=== PATIENT | female | born 1980 | race Caucasian/White ===

== ENCOUNTER 2020-01-18 20:15 | Emergency (ER) | payer OTHER, SELFPAY ==
[2020-01-18] VITALS (17 sets, daily range): BP systolic 120–133; BP diastolic 81–96; PULSE 78–117; RESP 12–26; TEMP 36.4; O2SAT 93–99
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
[2020-01-18 21:12] LABS: Basophils Percent Auto 1.2 % (0.2-1.2); Eosinophils Absolute Auto 0.1 K/mm3 (0-0.3); Eosinophils Percent Auto 1.9 % (0-4.4); Hematocrit 29.9 % (37.0-47.0); Hemoglobin 8.6 g/dL (12.0-15.0); Immature Granulocyte Absolute 0.01 K/mm3 (0.00-0.031); Immature Granulocyte Percent A 0.4 % (0-0.5); Lymphocytes Absolute Auto 0.56 K/mm3 (0.9-3.2); Lymphocytes Percent Auto 21.6 % (18.3-44.2); Mean Corpuscular HGB Conc 28.8 g/dl (32-36); Mean Corpuscular Hemoglobin 21.7 pg (26-34); Mean Corpuscular Volume 75.3 fl (80-100); Mean Platelet Volume 7.8 fl (7.4-10.4); Monocytes Absolute Auto 0.3 K/mm3 (0.1-0.6); Monocytes Percent Auto 10.4 % (2.6-8.5); Neutrophils Absolute Auto 1.7 K/mm3 (1.3-6.7); Neutrophils Percent Auto 64.5 % (45.5-73.1); Platelet Count Result 82 k/mm3 (150-375); Red Blood Count 3.97 M/mm3 (4.2-5.4); Red Cell Distribution Width 24.4 % (11.5-14.5); White Blood Count 2.6 K/mm3 (4.5-10.0)
[2020-01-18 21:21] LABS: Hypochromasia 2+ (NORMAL); Platelet Estimate Decreased (Adequate)
[2020-01-18 21:22] LABS: Ovalocytes 1+ (NORMAL); Target Cells 1+ (NORMAL)
[2020-01-18 21:26] LABS: Prothrombin Time 13.3 Seconds (11.1-14.7)
[2020-01-18] MEDS: SODIUM CHLORIDE 0.9% IV 1,000 ML 999 ML IV CONT (21:30)
[2020-01-18 21:32] LABS: Alanine Aminotransferase 141 U/L (4-35); Albumin Level 3.9 g/dL (3.5-5.1); Alkaline Phosphatase 223 U/L (38-126); Bilirubin,Total 1.3 mg/dL (0.2-1.3); Blood Urea Nitrogen 11 mg/dL (7-17); Calcium 7.9 mg/dL (8.4-10.2); Carbon Dioxide 24 mmol/L (22-30); Chloride 105 mmol/L (98-107); Estimated Glomerular Filt Rate > 60; Glucose 80 mg/dL (65-105); Potassium 3.8 mmol/L (3.4-5.0); Sodium 142 mmol/L (137-145)
[2020-01-18 21:36] LABS: Aspartate Amino Transferase 756 U/L (14-36)
--- NOTE | 2020-01-18 21:37 | PC.NURSE ---
Patient being taken to Ct.
[2020-01-18 21:38] LABS: Ethanol 375 mg/dL (<10)
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
[2020-01-18 23:29] LABS: Add Urine Microscopic? YES; Appearance Urine Clear (Clear); Bilirubin Urine Negative (Negative); Blood Urine Negative (Negative); Color Urine Yellow (Yellow); Glucose Urine UA Negative (Negative); Ketones Urine 1+ mg/dL (Negative); Leukocyte Esterase Ur Negative LEU/UL (Negative); Mucus Urine Rare /lpf; Nitrate Urine Positive (Negative); Protein Urine Negative (Negative); RBC Urine 0-2 /hpf (0-2); Squamous Epithelial Cell Urine Occasional /hpf (Few); WBC Urine 0-3 /hpf
[2020-01-19] VITALS (24 sets, daily range): BP systolic 113–123; BP diastolic 70–82; PULSE 77–97; RESP 12–17; TEMP 36.6; O2SAT 94–100
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
[2020-01-19] MEDS: THIAMINE HCL 200 MG/2 ML VIAL 100 MG IV PUSH (01:10)
[2020-01-19] MEDS: ACETAMINOPHEN 325 MG TABLET 650 MG PO (05:31)
[2020-01-19] MEDS: LORAZEPAM INJ 2 MG/ML VIAL 1 MG IV PUSH (05:50)
--- NOTE | 2020-01-19 06:35 | PC.NURSE ---
This nurse called for a breakfast tray for patient.
--- NOTE | 2020-01-19 08:16 | PC.NURSE ---
Contacted care coordination,they will look into it and return call
--- NOTE | 2020-01-19 08:39 | PC.NURSE ---
0830-JODY WITH CARE COORDINATION IN WITH PT.
--- NOTE | 2020-01-19 09:10 | PC.NURSE ---
[id number] Alethea from [employer] here to help with treatment and [facility] and transportation
[2020-01-19] MEDS: CHLORDIAZEPOXIDE 25 MG CAPSULE PO (09:18)
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
== END 2020-01-19 09:10 | disposition left against medical advice (07) ==
PROVIDERS: Emergency Medicine; Emergency Provider Emergency Medicine
DX: S00.03XA Contusion of scalp, initial encounter (principal); D61.818 Other pancytopenia; R94.5 Abnormal results of liver function studies; F10.129 Alcohol abuse with intoxication, unspecified; Y90.8 Blood alcohol level of 240 mg/100 ml or more; K76.0 Fatty (change of) liver, not elsewhere classified; Z85.6 Personal history of leukemia; Y00.XXXA Assault by blunt object, initial encounter
CPT/HCPCS: 36415; 70450; 70486; 71046; 72125; 74177; 80053; 80307; 81001; 81025; 85025; 85610; 85730; 96361; 96374; 96375; 99284; A9270; J2060; J3411; J7030; Q9967

== ENCOUNTER 2020-02-16 18:05 | Emergency (ER) | payer OTHER, SELFPAY ==
[2020-02-16] VITALS (7 sets, daily range): BP systolic 106–128; BP diastolic 74–103; PULSE 78–103; RESP 15–20; TEMP 36.3; O2SAT 98–100
--- NOTE | ~2020-02-16 | CT_ITS ---
EXAMINATION: CT abdomen pelvis w con DATE: 02/16/2020 21:28 INDICATION: Elevated liver function tests TECHNIQUE: Computed tomography (CT) of the abdomen and pelvis was performed with 100 cc Omnipaque 350 intravenous contrast. Automated exposure control and iterative reconstruction technique were employe d. Exam dose: 400.16 mGy-cm total exam DLP. COMPARISON: 01/18/2020 CT abdomen pelvis FINDINGS: Bilateral breast implants are noted. Normal heart size. No pericardial or pleural effusion. The lung bases are clear of infiltrate or cons olidation. There is very prominent diffuse hepatic steatosis. No hepatic space-occupying mass lesion. No bile du ct or pancreatic duct dilatation. No pancreatic mass lesion or calcification. Splenic size is within normal limits. Status post gastric bypass. Normal morphology of the adrenal glands. No renal mass lesion or hydroureteronephrosis. The urinary b ladder is unremarkable. Status post hysterectomy. No bowel obstruction. No intraperitoneal free air. Normal caliber of the abdominal aorta. No intraperitoneal or retroperitoneal or pelvic mass lesion or adenopathy or ascites. IMPRESSION: Prominent hepatic steatosis Status post cholecystectomy Gastric bypass surgery Bilateral breast implants Status post hysterectomy Reviewed, dictated and finalized at Location [facility]. Reviewed, dictated and finalized at location A.
--- NOTE | 2020-02-16 19:44 | ECG_ITS ---
Measurements Intervals [place] Rate: 83 P: 66 NH: 178 QRS: 49 QRSD: 110 T: 44 QT: 427 QTc: 502 Interpretive Statements SINUS RHYTHM BASELINE ARTIFACT- I, II, III, AVR, AVL,A VF, V1 NORMAL ECG Electronically Signed On 02-17-2020 8:08:38 CDT by Laz Kenyon D.O.
--- NOTE | 2020-02-16 19:49 | ED.GENADULT ---
HPI - General Adult General Chief complaint: Unspecified Stated complaint: dizzy, weak, bodyaches Time Seen by Provider: 02/16/20 19:31 Source: patient Mode of arrival: ambulatory Limitations: no limitations History of Present Illness HPI narrative: This patient is 39 year old female who presents with complaint of 4 weeks of fatigue. 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 She is having difficulty and feeling tired more with all her heavy lifting. She also has nausea and dry heaves so she does not want to eat. She has some dizziness and she reports she feels unsteady when she walks. She denies fever, chills, cough or chest pain. She denies abdominal pain. She has noticed that her urine is dark. She admits to drinking 1 pint per daily of alcohol. She develops tremors if she does not drink. She last drank today. Onset (ago): week(s) (4) Related Data Home Medications Medication Instructions Recorded Confirmed dextroamphetamine-amphetamine 02/16/20 Allergies Allergy/AdvReac Type Severity Reaction Status Date / Time Penicillins Allergy Intermediate Swelling Verified 02/16/20 18:20 ceftriaxone Allergy Mild Rash Verified 02/16/20 18:20 paper tape Allergy Mild Rash Uncoded 02/16/20 18:20 Review of Systems Review of Systems: All systems reviewed & are unremarkable except as noted in HPI and below Constitutional: Constitutional: Denies chills and Denies fever(s) Eyes: Eyes: Reports no additional eye complaints ENT: Reports dizziness Cardiovascular: Cardiovascular: Denies chest pain Respiratory: Respiratory: Denies cough and Denies wheezing Gastrointestinal: Gastrointestinal: Denies abdominal pain, Denies constipation, Denies diarrhea, Reports nausea and Denies vomiting Genitourinary: Genitourinary: Reports no additional female genitourinary complaints [facility] Past Medical History Medical History (Updated 02/16/20 @ 23:38 by Lorraine Stafford MD) Leukemia Surgical History Surgical History (Updated 02/16/20 @ 19:49 by Lorraine Stafford MD) H/O gastric bypass History of hysterectomy Social History Social History (Updated 02/16/20 @ 19:50 by Lorraine Stafford MD) Smoking status: Never smoker Alcohol intake: current Alcohol use details: 1 pint daily Substance use: never Gender identity (if verbalized by the patient): Female Exam Const: General: no acute distress and alert Orientation/consciousness: patient oriented x3 HENMT: Head: normocephalic and atraumatic Face and sinus: face symmetric Mouth: Yes Normal oral and palatal mucosa present, Yes lip normal and Yes oropharynx normal Throat: posterior oropharynx normal, tonsils normal and uvula midline Eyes: Conjunctivae: conjunctivae normal Pupils: Equal, round and reactive pupils present EOM: EOMs intact bilaterally Chest: Chest palpation & inspection: normal inspection of the chest Resp: Effort & Inspection: normal respiratory effort and no retractions Auscultation: clear to auscultation bilaterally Cardio: Rate: regular rate Rhythm: regular rhythm Heart sounds: no murmurs GI: GI Palp: Yes Soft to palpation, No Tenderness to palpation present (GI), No Guarding due to palpation present (GI) and No Rigid due to palpation Skin: General skin exam: normal color Rashes: no rashes Other: bruising to extremities Neuro: General: patient oriented x3, moves all extremities and CN's II-XI intact bilaterally Speech: normal speech Gait exam (Neuro): Normal gait present Extrem: General: edema Psych: Mental Status: mental status grossly normal Course Reevaluation(s) Reevaluation #1: Patient appears comfortable and she does not appear to be withdrawing. I have discussed with her lab abnormalities which includes pancytopenia and alcoholic hepatitis. 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 I Discussed that she will nee
[2020-02-16] MEDS: ONDANSETRON INJ 4 MG/2 ML VIAL IV PUSH (20:10)
[2020-02-16] MEDS: PANTOPRAZOLE SODIUM IV 40 MG VIAL IV PUSH (20:10)
[2020-02-16 20:16] LABS: Basophils Percent Auto 0.7 % (0.2-1.2); Eosinophils Percent Auto 0.3 % (0-4.4); Hematocrit 32.5 % (37.0-47.0); Hemoglobin 10.1 g/dL (12.0-15.0); Immature Granulocyte Absolute 0.02 K/mm3 (0.00-0.031); Immature Granulocyte Percent A 0.7 % (0-0.5); Lymphocytes Absolute Auto 0.88 K/mm3 (0.9-3.2); Lymphocytes Percent Auto 30.7 % (18.3-44.2); Mean Corpuscular HGB Conc 31.1 g/dl (32-36); Mean Corpuscular Hemoglobin 24.2 pg (26-34); Mean Corpuscular Volume 77.8 fl (80-100); Mean Platelet Volume 9.4 fl (7.4-10.4); Monocytes Absolute Auto 0.2 K/mm3 (0.1-0.6); Neutrophils Absolute Auto 1.7 K/mm3 (1.3-6.7); Neutrophils Percent Auto 59.6 % (45.5-73.1); Platelet Count Result 98 k/mm3 (150-375); Red Blood Count 4.18 M/mm3 (4.2-5.4); Red Cell Distribution Width 24.2 % (11.5-14.5); White Blood Count 2.9 K/mm3 (4.5-10.0)
[2020-02-16 20:27] LABS: Ammonia < 9 umol/L (9-30); Partial Thromboplastin Time 30.1 SECONDS (22.3-36.8); Prothrombin Time 12.6 Seconds (11.1-14.7)
[2020-02-16 20:29] LABS: Creatine Kinase 125 U/L (30-135)
[2020-02-16 20:31] LABS: Alanine Aminotransferase 154 U/L (4-35); Albumin Level 3.6 g/dL (3.5-5.1); Alkaline Phosphatase 324 U/L (38-126); Bilirubin,Total 3.4 mg/dL (0.2-1.3); Blood Urea Nitrogen 8 mg/dL (7-17); Calcium 7.6 mg/dL (8.4-10.2); Carbon Dioxide 27 mmol/L (22-30); Chloride 97 mmol/L (98-107); Estimated CRCL calculation 96 ml/min; Estimated Glomerular Filt Rate > 60; Glucose 90 mg/dL (65-105); Magnesium 1.7 mg/dL (1.6-2.3); Potassium 4.1 mmol/L (3.4-5.0); Sodium 138 mmol/L (137-145)
[2020-02-16 20:45] LABS: Aspartate Amino Transferase 927 U/L (14-36)
[2020-02-16 22:36] LABS: Add Urine Microscopic? NO; Appearance Urine Clear (Clear); Bilirubin Urine Negative (Negative); Blood Urine Negative (Negative); Color Urine Yellow (Yellow); Glucose Urine UA Negative (Negative); Ketones Urine Negative (Negative); Leukocyte Esterase Ur Negative LEU/UL (Negative); Nitrate Urine Negative (Negative); Protein Urine Negative (Negative); Specific Grav Ur 1.021 (1.001-1.035); Urobilinogen Urine Negative mg/dL (<2.0)
--- NOTE | 2020-02-16 23:26 | PC.NURSE ---
Assumed care of pt at this time. Report from macario galeas
== END 2020-02-16 23:50 | disposition home or self-care (01) ==
PROVIDERS: Emergency Provider General Practice
DX: D61.818 Other pancytopenia (principal); K70.10 Alcoholic hepatitis without ascites; Z85.6 Personal history of leukemia; D76.3 Other histiocytosis syndromes; Z98.84 Bariatric surgery status; K76.0 Fatty (change of) liver, not elsewhere classified
CPT/HCPCS: 36415; 74177; 80053; 81003; 82140; 82550; 83735; 85025; 85610; 85730; 93005; 96365; 96366; 96375; 99284; C9113; J2405; J3411; J3475; J7121; Q9967

== ENCOUNTER 2020-02-21 16:52 | Inpatient (IN) | payer OTHER, SELFPAY ==
[2020-02-21] VITALS (8 sets, daily range): BP systolic 125–151; BP diastolic 80–109; PULSE 94–122; RESP 16–22; TEMP 36.7–37.2; O2SAT 97–100; BMI 26.4
--- NOTE | ~2020-02-21 | US_ITS ---
EXAMINATION: US right upper quadrant DATE: 02/23/2020 09:33 INDICATION: Abnormal liver function tests. TECHNIQUE: Multiple grayscale and Doppler ultrasound images of the abdomen were obtained. COMPARISON: CT abdomen and pelvis 02/16/2020 FINDINGS: The visualized portions of the head and body of the pancreas are normal. There is diffuse h epatic steatosis. No liver surface nodularity. There is normal flow in main portal vein. The gallblad milagros is absent. The common duct is normal and measures 5 mm. IMPRESSION: 1. Diffuse hepatic steatosis. Reviewed, dictated and finalized at location A.
[2020-02-21 17:10] LABS: Basophils Percent Auto 1.1 % (0.2-1.2); Eosinophils Percent Auto 0.4 % (0-4.4); Hematocrit 29.8 % (37.0-47.0); Hemoglobin 9.1 g/dL (12.0-15.0); Immature Granulocyte Absolute 0.03 K/mm3 (0.00-0.031); Immature Granulocyte Percent A 1.1 % (0-0.5); Lymphocytes Absolute Auto 0.77 K/mm3 (0.9-3.2); Lymphocytes Percent Auto 27.4 % (18.3-44.2); Mean Corpuscular HGB Conc 30.5 g/dl (32-36); Mean Corpuscular Hemoglobin 25.4 pg (26-34); Mean Corpuscular Volume 83.2 fl (80-100); Mean Platelet Volume 9.7 fl (7.4-10.4); Monocytes Absolute Auto 0.2 K/mm3 (0.1-0.6); Monocytes Percent Auto 7.1 % (2.6-8.5); Neutrophils Absolute Auto 1.8 K/mm3 (1.3-6.7); Neutrophils Percent Auto 62.9 % (45.5-73.1); Platelet Count Result 86 k/mm3 (150-375); Red Blood Count 3.58 M/mm3 (4.2-5.4); Red Cell Distribution Width 24.7 % (11.5-14.5); White Blood Count 2.8 K/mm3 (4.5-10.0)
[2020-02-21 17:23] LABS: Alanine Aminotransferase 132 U/L (4-35); Albumin Level 3.3 g/dL (3.5-5.1); Alkaline Phosphatase 339 U/L (38-126); Aspartate Amino Transferase 643 U/L (14-36); Bilirubin,Total 4.1 mg/dL (0.2-1.3); Blood Urea Nitrogen 5 mg/dL (7-17); Calcium 7.9 mg/dL (8.4-10.2); Carbon Dioxide 24 mmol/L (22-30); Chloride 98 mmol/L (98-107); Estimated CRCL calculation 85 ml/min; Estimated Glomerular Filt Rate > 60; Ethanol 129 mg/dL (<10); Glucose 113 mg/dL (65-105); Potassium 3.8 mmol/L (3.4-5.0); Sodium 138 mmol/L (137-145)
--- NOTE | 2020-02-21 19:50 | ECG_ITS ---
Measurements Intervals [place] Rate: 98 P: 59 OR: 169 QRS: 54 QRSD: 102 T: 25 QT: 389 QTc: 498 Interpretive Statements SINUS RHYTHM BASELINE WANDER- AVL, AVF NORMAL ECG Electronically Signed On 02-22-2020 7:22:19 CDT by Laz Kenyon D.O.
--- NOTE | 2020-02-21 19:50 | ED.GENADULT ---
HPI - General Adult General Chief complaint: Unspecified Stated complaint: headache Time Seen by Provider: 02/21/20 19:42 Source: patient Mode of arrival: ambulatory Limitations: no limitations History of Present Illness HPI narrative: This patient is a 39 year old female with history of alcohol abuse, hepatitis, sinus histiocytosis who presents for evaluation of alcohol withdrawal. Patient has been to ER numerous times for evaluation of her excessive drinking. She states she is finally ready to stop drinking so she came to ER. She states her last drink was 10 am today. She drinks a pint of alcohol every day . She was prescribed librium on last visit but she states she continued to drink. She reports nausea and dry heaves. She denies hematemesis, diarrhea or bloody stools. Related Data Home Medications Medication Instructions Recorded Confirmed dextroamphetamine-amphetamine 02/16/20 Allergies Allergy/AdvReac Type Severity Reaction Status Date / Time Penicillins Allergy Intermediate Swelling Verified 02/16/20 18:20 adhesive tape Allergy Mild Rash Verified 02/21/20 19:57 ceftriaxone Allergy Mild Rash Verified 02/16/20 18:20 Review of Systems Review of Systems: All systems reviewed & are unremarkable except as noted in HPI and below Constitutional: Constitutional: Denies chills and Denies fever(s) Cardiovascular: Cardiovascular: Denies chest pain Respiratory: Respiratory: Denies cough and Denies dyspnea Gastrointestinal: Gastrointestinal: Denies abdominal pain, Denies diarrhea and Reports nausea Genitourinary: Genitourinary: Denies hematuria and Denies flank pain Hematologic/Lymphatic: Hematologic/Lymphatic: Reports easy bruising PMFSH Past Medical History Medical History Hepatitis, alcoholic, acute Leukemia Surgical History Surgical History H/O gastric bypass History of hysterectomy Social History Social History Smoking status: Never smoker Alcohol intake: current Substance use: never Gender identity (if verbalized by the patient): Female Exam Const: General: alert Orientation/consciousness: patient oriented x3 HENMT: Head: normocephalic and atraumatic Ears: TM's normal bilaterally Face and sinus: face symmetric Throat: uvula midline Eyes: Pupils: Equal, round and reactive pupils present EOM: EOMs intact bilaterally Resp: Effort & Inspection: normal respiratory effort, no retractions and no use of accessory muscles Auscultation: clear to auscultation bilaterally Cardio: Rate: tachycardic Rhythm: regular rhythm Heart sounds: no murmurs GI: GI Palp: Yes Soft to palpation, No Tenderness to palpation present (GI), No Guarding due to palpation present (GI) and No Rigid due to palpation Skin: General skin exam: jaundice Neuro: General: patient oriented x3 and moves all extremities Cranial nerves: Yes Equal, round and reactive pupils present Speech: normal speech Motor exam (neuro): Tremors during motor activity present and Asterixis during motor activity present Course Consultations Consultation #1: I Discussed case with dR. Alexandra who request patient to be given another 1 L of fluid. He request to start patient on precedex Date: 02/21/20 Time: 21:05 Consultation #2: I have discussed case with dR. Mejia who accepts patient in ED. Date: 02/21/20 Time: 21:06 Consultation #3: Dr. Eileen Chauhan is agreeable to consult Date: 02/21/20 Time: 21:30 Vital Signs Vital signs: Vital Signs Temperature 98.1 F 02/21/20 16:55 Pulse Rate 110 H 02/21/20 16:55 Respiratory Rate 16 02/21/20 16:55 Blood Pressure 125/88 02/21/20 16:55 Pulse Oximetry 100 02/21/20 16:55 Temperature 98.0 F 02/21/20 19:42 Pulse Rate 96 02/21/20 21:22 Respiratory Rate 20 02/21/20 21:22 Blood Pressure 130/89
[2020-02-21 20:28] LABS: Add Urine Microscopic? YES; Appearance Urine Cloudy (Clear); Bacteria Urine Trace /hpf; Bilirubin Urine 2+ (Negative); Glucose Urine UA Negative (Negative); Ketones Urine Trace mg/dL (Negative); Leukocyte Esterase Ur 1+ LEU/UL (Negative); Mucus Urine Heavy /lpf; Nitrate Urine Positive (Negative); Protein Urine 2+ mg/dL (Negative); RBC Urine 0-2 /hpf (0-2); Specific Grav Ur 1.023 (1.001-1.035); Squamous Epithelial Cell Urine Many /hpf (Few); WBC Urine 51-75 /hpf
[2020-02-21] MEDS: ONDANSETRON INJ 4 MG/2 ML VIAL IV PUSH ×2 (20:29→22:51)
[2020-02-21 20:32] LABS: Magnesium 1.3 mg/dL (1.6-2.3)
[2020-02-21 20:34] LABS: Blood Urine Negative (Negative); Color Urine Dark Amber (Yellow)
[2020-02-21 20:52] LABS: Amphetamine Screen Urine Positive (Negative); Barbiturate Screen Urine Negative (Negative); Benzodiazepines Screen Urine Negative (Negative); Cannabinoid Screen Urine Negative (Negative); Cocaine Screen Urine Negative (Negative); Methadone Screen Urine Negative (Negative); Opiate Screen Urine Negative (Negative); Phencyclidine Screen Urine Negative (Negative)
--- NOTE | 2020-02-21 21:28 | PM.IMHP ---
H&P: HPI History of Present Illness Chief complaint: alcohol withdrawal Narrative: This is a 39 year old female with known history of Histiocytosis, alcoholic hepatitis, and chronic alcoholism presented to the ER tonight with alcohol withdrawal symptoms including nausea, dry heaving, anxiety, headache, and shakiness. The patient has had multiple ER visits and julia verbalizes that she desires to quit drinking alcohol. She reports that she normally drinks hard liquor all throughout the day. Her last alcholic drink was around 10 am this morning. She denies any hallucinations, fevers, chill, shortness of breath, chest pain, abdominal pain, dysuria, hematuria, diarrhea, or focal neurological symptoms. She does report a dry cough that she has had recently. She also has chronic bruising and lower extremity swelling. No other complaints. Review of Systems Review of Systems: All systems reviewed & are unremarkable except as noted in HPI and below PMFSH Past Medical History Medical History Hepatitis, alcoholic, acute Leukemia Surgical History Surgical History H/O gastric bypass History of hysterectomy Social History Social History Smoking status: Never smoker Alcohol intake: current Drinks per week: 10 Substance use: never Gender identity (if verbalized by the patient): Female Sexual Orientation (if Verbalized by the Patient): Straight or Heterosexual Spiritual care concerns: No Comments Family medical history is noncontributory. Meds Home Medications and Allergies Home Medications Medication Instructions Recorded Confirmed Type chlordiazepoxide HCl 25 mg PO Q2H PRN #20 cap 02/16/20 02/22/20 Rx dextroamphetamine-amphetamine 30 mg PO TID 02/16/20 02/22/20 History Allergies Allergy/AdvReac Type Severity Reaction Status Date / Time Penicillins Allergy Intermediate Swelling Verified 02/16/20 18:20 adhesive tape Allergy Mild Rash Verified 02/21/20 19:57 ceftriaxone Allergy Mild Rash Verified 02/16/20 18:20 Vital Signs Vital Signs - 24 hr 02/21/20 16:55 02/21/20 19:42 02/21/20 20:31 Temperature 36.7 C 36.7 C Pulse Rate 110 H 102 H 94 Respiratory Rate 16 16 20 Blood Pressure 125/88 151/109 H 132/89 Pulse Oximetry 100 97 100 02/21/20 21:22 Temperature Pulse Rate 96 Respiratory Rate 20 Blood Pressure 130/89 Pulse Oximetry 100 Exam Const: General: cooperative, alert, awake, in distress mild and anxious Nutritional Appearance: well nourished Orientation/consciousness: patient oriented x3 HENMT: Head: normal to inspection General nose exam: Normal external nose present Face and sinus: normal facial exam Mouth: Yes Normal oral and palatal mucosa present and Yes oropharynx normal Eyes: Pupils: Equal, round and reactive pupils present EOM: EOMs intact bilaterally Neck: Neck: supple and no JVD Thyroid: thyroid normal Lymphatic: lymphadenopathy not noted Resp: Effort & Inspection: normal respiratory effort Auscultation: clear to auscultation bilaterally Cardio: Rate: regular rate Rhythm: regular rhythm Heart sounds: no murmurs GI: Inspection: normal to inspection Auscultation: normal bowel sounds Skin: General skin exam: normal color and no rashes or lesions noted Neuro: General: patient oriented x3 Cranial nerves: Yes CN's II-XII intact bilaterally and Yes Equal, round and reactive pupils present Speech: normal speech Motor exam (neuro): 5/5 motor strength present throughout and Other motor observations present (Visible tremors++ ) Sensory Exam: normal sensation Extrem: General: normal to inspection and edema bilateral Psych: Mental Status: mental status grossly normal Affect: normal affect H&P: Results Labs Labs: Short CBC 02/21/20 Range/Units 17:00 WBC 2.8 L (4.5-10.0) K/mm3 Hgb 9.
[2020-02-21] MEDS: LACTATED RINGERS 1,000 ML 999 ML IV CONT (21:31)
--- NOTE | 2020-02-21 22:07 | PC.NURSE ---
Pt's mother here to see patient. Informed her only one visitor is allowed back. She left her name and number for patient to reach her. Rasheeda [phone]
--- NOTE | 2020-02-21 22:25 | ADMGEN ---
This patient, Brittany Dill, was admitted to Intensive Care Unit-8. Patient/family oriented to hospital policies and general routines including ID bracelet, bed and alarms, visiting hours, pain management, procedures, bathroom and other care routines, personal items, smoking policy, room service/diet, and visiting hours. Valuables list has been completed. Information on how to activate the Rapid Response Team has been discussed. Patient/Family are encouraged to report perceived risks to care and to ask questions if they do not understand what they are told or what they should do.
[2020-02-21] MEDS: chlordiazePOXIDE 25 MG CAPSULE 50 MG PO (22:37)
[2020-02-22] VITALS (12 sets, daily range): BP systolic 111–146; BP diastolic 74–93; PULSE 86–119; RESP 16–21; TEMP 36.4–36.8; O2SAT 100
[2020-02-22] MEDS: chlordiazePOXIDE 25 MG CAPSULE 50 MG PO ×3 (04:44→18:22)
[2020-02-22 04:59] LABS: Basophils Percent Auto 0.4 % (0.2-1.2); Eosinophils Percent Auto 0.7 % (0-4.4); Hematocrit 24.1 % (37.0-47.0); Hemoglobin 7.6 g/dL (12.0-15.0); Immature Granulocyte Absolute 0.03 K/mm3 (0.00-0.031); Immature Granulocyte Percent A 1.1 % (0-0.5); Immature Platelet Fraction Pct 4.9 % (0.9-11.2); Lymphocytes Absolute Auto 1.01 K/mm3 (0.9-3.2); Lymphocytes Percent Auto 37.8 % (18.3-44.2); Mean Corpuscular HGB Conc 31.5 g/dl (32-36); Mean Corpuscular Hemoglobin 26.1 pg (26-34); Mean Corpuscular Volume 82.8 fl (80-100); Mean Platelet Volume 9.7 fl (7.4-10.4); Monocytes Absolute Auto 0.2 K/mm3 (0.1-0.6); Monocytes Percent Auto 6.7 % (2.6-8.5); Neutrophils Absolute Auto 1.4 K/mm3 (1.3-6.7); Neutrophils Percent Auto 53.3 % (45.5-73.1); Platelet Count Result 77 k/mm3 (150-375); Red Blood Count 2.91 M/mm3 (4.2-5.4); Red Cell Distribution Width 24.9 % (11.5-14.5); White Blood Count 2.7 K/mm3 (4.5-10.0)
[2020-02-22 05:10] LABS: Alanine Aminotransferase 104 U/L (4-35); Albumin Level 2.8 g/dL (3.5-5.1); Alkaline Phosphatase 258 U/L (38-126); Aspartate Amino Transferase 491 U/L (14-36); Bilirubin,Total 4.7 mg/dL (0.2-1.3); Blood Urea Nitrogen 6 mg/dL (7-17); Calcium 7.4 mg/dL (8.4-10.2); Carbon Dioxide 27 mmol/L (22-30); Chloride 95 mmol/L (98-107); Estimated CRCL calculation 116 ml/min; Estimated Glomerular Filt Rate > 60; Glucose 79 mg/dL (65-105); Potassium 3.5 mmol/L (3.4-5.0); Sodium 133 mmol/L (137-145)
[2020-02-22 07:54] LABS: Basophils Percent Auto 0.4 % (0.2-1.2); Eosinophils Percent Auto 1.2 % (0-4.4); Hematocrit 25.6 % (37.0-47.0); Immature Granulocyte Absolute 0.03 K/mm3 (0.00-0.031); Immature Granulocyte Percent A 1.2 % (0-0.5); Immature Platelet Fraction Pct 6.7 % (0.9-11.2); Lymphocytes Absolute Auto 1.04 K/mm3 (0.9-3.2); Mean Corpuscular HGB Conc 31.3 g/dl (32-36); Mean Corpuscular Hemoglobin 25.9 pg (26-34); Mean Corpuscular Volume 82.8 fl (80-100); Mean Platelet Volume 9.6 fl (7.4-10.4); Monocytes Absolute Auto 0.2 K/mm3 (0.1-0.6); Monocytes Percent Auto 5.8 % (2.6-8.5); Neutrophils Absolute Auto 1.3 K/mm3 (1.3-6.7); Neutrophils Percent Auto 51.4 % (45.5-73.1); Platelet Count Result 76 k/mm3 (150-375); Red Blood Count 3.09 M/mm3 (4.2-5.4); White Blood Count 2.6 K/mm3 (4.5-10.0)
[2020-02-22] MEDS: ONDANSETRON INJ 4 MG/2 ML VIAL IV PUSH (08:22)
--- NOTE | 2020-02-22 08:47 | WPDCNINT ---
Assessment and Plan Assessment and plan (1) Alcohol withdrawal: Qualifiers: Complication of substance-induced condition: uncomplicated Qualified Code(s): F10.230 - Alcohol dependence with withdrawal, uncomplicated Code(s): F10.239 - Alcohol dependence with withdrawal, unspecified Status: Acute Assessment and Plan: Patient with alcohol dependence/abuse presented with possible alcohol intoxication/withdrawal symptoms. Patient was tachycardic, anxious, tremulous, headaches. -patient started on folic acid and thiamine -continue Librium -patient did not require Precedex -continue CIWA protocol -p.r.n. Ativan -patient wants to quit drinking and is asking for help, will have care coordination evaluate the patient and provide patient with resources (2) Abnormal drug screen: Code(s): R89.2 - Abnormal level of other drugs, medicaments and biological substances in specimens from other organs, systems and tissues Status: Acute Assessment and Plan: Urine tox screen was positive for amphetamines, patient states she takes Adderall at home (3) Pancytopenia: Code(s): D61.818 - Other pancytopenia Status: Acute Assessment and Plan: Patient with pancytopenia, has history of leukemia/lymphoma -patient has been lost to follow-up after oncologist -will have Dr. Kruger follow the patient (4) Acute alcoholic hepatitis: Code(s): K70.10 - Alcoholic hepatitis without ascites Status: Acute Assessment and Plan: Patient with elevated LFTs, recently in the in the ER at [facility] on 02/16/[address] when she had a CT scan of the abdomen and pelvis which showed prominent hepatic steatosis, status post cholecystectomy, gastric bypass surgery, bilateral breast implants, status post hysterectomy -GI has been consulted (5) Leukemia: Code(s): C95.90 - Leukemia, unspecified not having achieved remission Status: Acute Assessment and Plan: History of leukemia/lymphoma, will have Dr. Kruger follow the patient Additional Plan Discussed with patient at length and updated her with her condition and plan of care. She is aware that the oncologist will be following her along with the GI doctor. Code status: Full code Critical care time spent: 41 minutes Due to a high probability of clinically significant, life threatening deterioration, the patient required my highest level of preparedness to intervene emergently and I personally spent this critical care time directly and personally managing the patient. This critical care time included obtaining a history; examining the patient; pulse oximetry; ordering and review of studies; arranging urgent treatment with development of a management plan; evaluation of patient's response to treatment; frequent reassessment; and discussions with other providers. It was exclusive of separately billable procedures and treating other patients and teaching time. Please see Assessment and Plan section and the rest of the note for further information on patient assessment and treatment [employer] Manager Consult Note Consult date: 02/22/20 Time Seen: 07:04 Reason for consult: Alcohol intoxication, alcohol withdrawal, nausea, tremors HPI: Brittany Dill is a 39 year old female with significant past medical history of alcohol hepatitis, leukemia for history of gastric bypass, history of hysterectomy presented to the ED on 02/21/2020 with complains of alcohol intoxication with possible alcohol withdrawal symptoms which included nausea vomiting, anxiety, headaches, tremors. Patient was recently in the ED at [facility] on 02/16/2020 with complains of body aches, dizziness and weakness and was discharged the same day with diagnosis of pancytopenia and hepatic steatosis, alcoholic hepatitis, alcohol withdrawal. In the ED patient verbalized that she deserved to quit drinking alcohol. She normally drinks hard liquor throughout the day, 1 pt of al
[2020-02-22] MEDS: THIAMINE HCL 200 MG/2 ML VIAL 100 MG IV PUSH (09:22)
[2020-02-22] MEDS: PANTOPRAZOLE SODIUM IV 40 MG VIAL IV PUSH (09:22)
[2020-02-22] MEDS: SODIUM CHLORIDE 0.9% IV 1,000 ML 999 ML IV CONT (09:26)
[2020-02-22 10:33] LABS: Iron 138 ug/dL (37-170)
[2020-02-22 10:43] LABS: Percent Iron Saturation 64 % (20-50)
--- NOTE | 2020-02-22 15:49 | WPDGICN ---
Assessment and Plan Assessment and plan (1) Alcohol withdrawal: Qualifiers: Complication of substance-induced condition: uncomplicated Qualified Code(s): F10.230 - Alcohol dependence with withdrawal, uncomplicated Code(s): F10.239 - Alcohol dependence with withdrawal, unspecified Status: Acute Assessment and Plan: monitor in icu thiamine, librium prn, mvi, etc (2) Acute alcoholic hepatitis: Code(s): K70.10 - Alcoholic hepatitis without ascites Status: Acute Assessment and Plan: monitor lft's she would like to quit drinking and willing to look for help (3) Pancytopenia: Code(s): D61.818 - Other pancytopenia Status: Acute Assessment and Plan: ? history of leukemia, public relations senior associate to see (4) Alcoholic fatty liver: Code(s): K70.0 - Alcoholic fatty liver Status: Acute GI Consult Note Consult date/time: 02/22/20 15:49 Reason for consult: alcoholic hepatitis HPI: Brittany Dill is a 39 year old female history of alcohol hepatitis, pancytopenia, gastric bypass came to the ED on 02/21/2020 with nausea, vomiting, anxiety, headaches, tremors and ear ringing. She was just in ED at [facility] about a month ago and had CT scan with hepatic steatosis. This time noted to have alcoholic hepatitis with tb 4, transaminases 600-100, pancytopenia. CT scan showed gastric bypass, hepatic steatosis. She was admitted to ICU for risk of etoh withdrawal, ciwa protocol, did not need precedex. She wants to quit drinking, normally has several shots a day for years, she is under a lot of stress after tough divorce and taking care of her children. Review of Systems Constitutional: Constitutional: Denies headache(s) and Denies weakness Eyes: Eyes: Denies blurry vision ENT: Reports Normal hearing present, Denies headache(s) and Denies neck pain Cardiovascular: Cardiovascular: Denies chest pain and Denies dyspnea Respiratory: Respiratory: Denies dyspnea Gastrointestinal: Gastrointestinal: Reports no additional gastrointestinal complaints Genitourinary: Genitourinary: Denies dysuria Musculoskeletal: Musculoskeletal: Denies neck pain Integumentary/Breasts: Skin/Breast: Denies dry skin Neurologic: Reports Normal hearing present, Denies headache(s) and Denies weakness Psychiatric: Psychiatric: Reports anxiety Endocrine: Endocrine: Denies change in body appearance Hematologic/Lymphatic: Hematologic/Lymphatic: Denies easy bleeding Allergic/Immunologic: Allergic/Immunologic: Denies urticaria PMFSH Past Medical History Medical History Hepatitis, alcoholic, acute Leukemia Surgical History Surgical History H/O gastric bypass History of hysterectomy Social History Social History Smoking status: Never smoker Alcohol intake: current Drinks per week: 10 Substance use: never Gender identity (if verbalized by the patient): Female Sexual Orientation (if Verbalized by the Patient): Straight or Heterosexual Spiritual care concerns: No Meds Home Medications and Allergies Home Medications Medication Instructions Recorded Confirmed Type chlordiazepoxide HCl 25 mg PO Q2H PRN #20 cap 02/16/20 02/22/20 Rx dextroamphetamine-amphetamine 30 mg PO TID 02/16/20 02/22/20 History Allergies Allergy/AdvReac Type Severity Reaction Status Date / Time Penicillins Allergy Intermediate Swelling Verified 02/16/20 18:20 adhesive tape Allergy Mild Rash Verified 02/21/20 19:57 ceftriaxone Allergy Mild Rash Verified 02/16/20 18:20 Vital Signs Vital Signs - 24 hr 02/21/20 16:55 02/21/20 19:42 02/21/20 20:31 Temperature 98.1 F 98.0 F Pulse Rate 110 H 102 H 94 Pulse Rate [Right Radial] Respiratory Rate 16 16 20 Blood Pressure 125/88 151/109 H 132/89 Pulse Oximetry 100 97 100
--- NOTE | 2020-02-22 17:50 | PDONCCN ---
HPI - Date of Consult Date/Time: 02/22/20 17:50 Requesting Physician: Edinson Gonzalez MD Primary Care Provider: COMPLAINT ADJUSTER PHYSICIAN - Consult Narrative Reason for consult: Pancytopenia Narrative: Brittany Dill is a 39 year old female Came into the hospital with symptoms of alcohol Withdrawal. She has a history of drinking heavily. She also has a history of histocytosis as well as leukemia but unclear what type of leukemia she had. According to the patient she was diagnosed with leukemia 5 years ago and was treated at [facility]. She stopped seeing her oncologist as he . She never had bone marrow biopsy. She is a poor historian. Her labs showed pancytopenia along with finding consistent with liver failure secondary to [place]: Some. CT scan was also performed that showed hepatic steatosis without any lymphadenopathy. She denies any bleeding and bruising. He denies any fevers and chills. She denies any abdominal pain. She denies any other complaints. Review of Systems - Review of Systems All systems reviewed & are unremarkable except as noted in HPI and bel - Neurologic Reports hearing normal, Denies headache(s), Denies weakness PMFSH Medical History: Medical History (Last Updated 02/22/20 @ 15:58 by Brenden Charles MD) Alcoholic fatty liver Hepatitis, alcoholic, acute Leukemia Surgical History: Surgical History (Last Reviewed 02/22/20 @ 06:09 by Ovi Mejia MD) H/O gastric bypass History of hysterectomy - Social History Social History: Social History (Last Reviewed 02/22/20 @ 06:09 by Ovi Mejia MD) Gender Identity: Gender identity (if verbalized by the patient): Female Sexual Orientation: Sexual Orientation (if Verbalized by the Patient): Straight or Heterosexual Alcohol Use: Alcohol intake: current Drinks per week: 10 Substance Use: Substance use: never Others: Spiritual care concerns: No Smoking Status: Smoking status: Never smoker Meds Home Medications Medication Instructions Recorded Confirmed Type chlordiazepoxide HCl 25 mg PO Q2H PRN #20 cap 02/16/20 02/22/20 Rx dextroamphetamine-amphetamine 30 mg PO TID 02/16/20 02/22/20 History Allergies Allergy/AdvReac Type Severity Reaction Status Date / Time Penicillins Allergy Intermediate Swelling Verified 02/16/20 18:20 adhesive tape Allergy Mild Rash Verified 02/21/20 19:57 ceftriaxone Allergy Mild Rash Verified 02/16/20 18:20 Results - Labs CBC & Chem 7: 02/22/20 07:46 02/22/20 04:49 Labs: Short CBC 02/22/20 02/22/20 Range/Units 04:49 07:46 WBC 2.7 L 2.6 L (4.5-10.0) K/mm3 Hgb 7.6 L 8.0 L (12.0-15.0) g/dL Hct 24.1 L 25.6 L (37.0-47.0) % Plt Count 77 L 76 L (150-375) k/mm3 BMP 02/22/20 04:49 Sodium 133 L Potassium 3.5 Chloride 95 L Carbon Dioxide 27 BUN 6 L Creatinine 0.50 L Glucose 79 Calcium 7.4 L Liver Function 02/22/20 Range/Units 04:49 Total Bilirubin 4.7 H (0.2-1.3) mg/dL AST 491 H (14-36) U/L ALT 104 H (4-35) U/L Alkaline Phosphatase 258 H (38-126) U/L Albumin 2.8 L (3.5-5.1) g/dL Urine 02/21/20 Range/Units 20:15 Urine Color Dark maximus (Yellow) Urine Appearance Cloudy H (Clear) Urine pH 5.0 (5.0-9.0) Ur Specific [place] 1.023 (1.001-1.035) Urine Protein 2+ H (Negative) mg/dL Urine Glucose (UA) Negative (Negative) mg/dL Assessment and Plan - Additional Plan Pancytopenia. Patient given me vague history of leukemia diagnosed 5 years ago. She never had bone marrow biopsy and never received any treatment for her leukemia. I suspect her pancytopenia secondary to her liver disease which is due to her history of alcohol abuse. I have reviewed the CT scan finding that showed hepatic steatosis without any evidence of lymphadenopathy. Rest of the labs showed elevated iron studies and abnormal liver enzyme
--- NOTE | 2020-02-22 18:05 | PM.IMPN ---
Progress Note: A&P Assessment and Plan (1) Alcohol withdrawal: Qualifiers: Complication of substance-induced condition: uncomplicated Qualified Code(s): F10.230 - Alcohol dependence with withdrawal, uncomplicated Code(s): F10.239 - Alcohol dependence with withdrawal, unspecified Status: Acute Assessment and Plan: Patient was admitted to the ICU with plans for Precedex drip but was never started. On high-dose Librium with Ativan available as needed. Continue CIWA protocol. Monitor closely. (2) Acute alcoholic hepatitis: Code(s): K70.10 - Alcoholic hepatitis without ascites Status: Acute Assessment and Plan: LFTs elevated on admission but better than last checked on 02/15. Status post cholecystectomy. Iron studies showing iron saturation 64% but felt that hemochromatosis less likely. Monitor LFTs. Appreciate GI input. (3) Pancytopenia: Code(s): D61.818 - Other pancytopenia Status: Acute Assessment and Plan: Likely secondary to dietary deficiency and alcoholism. Levels low but stable. Monitor blood counts, transfuse prn. Check B12 level. Hematology following. (4) Alcoholism: Code(s): F10.20 - Alcohol dependence, uncomplicated Status: Acute Assessment and Plan: Patient has history of alcohol abuse. She has been educated about the benefit of abstaining from alcohol. This will need to be reinforced. CC to provide information about AA and other treatment choices. Continue thiamine. Add Folate (5) Abnormal drug screen: Code(s): R89.2 - Abnormal level of other drugs, medicaments and biological substances in specimens from other organs, systems and tissues Status: Acute Assessment and Plan: Urine drug screen positive for amphetamines. The patient states she takes Adderall at home. (6) Histiocytosis: Code(s): D76.3 - Other histiocytosis syndromes Status: Acute Assessment and Plan: Patient states she has a history of histiocytosis. No enlarged lymph nodes noted by CT scans recently. Patient can follow-up with her doctor for further workup/treatment. (7) Alcoholic fatty liver: Code(s): K70.0 - Alcoholic fatty liver Status: Acute Assessment and Plan: CT scan performed on February 15 showing prominent hepatic steatosis. Could partially explain her liver test abnormalities. Subjective Date/time seen: 02/22/20 18:05 Interval history: 39yo female here for alcohol withdrawal. Admitted to ICU for possible Precedex drip but never required. Date of service 02/22/2020: Patient feels tired. She slept poorly last night. She complains of back pain and knee pain this is been going on for 5 years. No workup has been performed to evaluate her pain. She denies any chest pain, shortness of breath or abdominal pain. She has a slight cough that is nonproductive. She is a nonsmoker. She denies any diaphoresis or shakes. She states she has a history of leukemia called histiocytosis. The histiocytosis is in her lymph nodes in her neck, axilla and groin. She has not had any treatment for histiocytosis. Exam Narrative: Exam Narrative: AF 113/74 96 20 100% ra Gen -no acute distress lying semi recumbent in bed Chest - CTA bilaterally, nml RR CV - RRR S1/S2; telemetry showing occasional tachycardia but no dysrhythmias. Abd -soft. Nondistended. Positive bowel sounds. Possible liver tip medial aspect. Ext - No pedal edema. 2+ DP pulses bilaterally. Neuro -somnolent but awakens easily and is appropriate. Psych - Nml mood and affect. No tremors. No diaphoresis. Skin - Warm and dry. Multiple bruising noted diffusely. jaundice Objective Data Vital Signs Vital Signs: Vital Signs - 24 hr 02/21/20 19:42 02/21/20 20:31 02/21/20 21:22 Temperature 98.0 F Pulse Rate 102 H 94 96 Pulse Rate [Right Radial] Respiratory Rate 16 20 20 Blood Pressure 151/109 H 132/89
[2020-02-22] MEDS: FOLIC ACID 1 MG/0.2 ML INJ IV PUSH (19:48)
[2020-02-22 19:55] LABS: Vitamin B12 > 1000.0 pg/mL (239-931)
--- NOTE | 2020-02-22 20:42 | PC.NURSE ---
This patient, Brittany Dill, was transferred to [ [id number]] on 02/22/20 at 2030. Personal belongings sent with patient. Belongings list checked and signed with receiving [ ]. Report given to [ John RN]. Appropriate documentation sent with patient.
--- NOTE | 2020-02-22 22:31 | PC.NURSE ---
Report received and pt transferred to 257 from ICU/8, patient is comfortable and has belongings at bedside.
[2020-02-23] VITALS (9 sets, daily range): BP systolic 100–126; BP diastolic 54–84; PULSE 88–104; RESP 16–18; TEMP 35.9–36.8; O2SAT 96–100; BMI 26.4
[2020-02-23] MEDS: chlordiazePOXIDE 25 MG CAPSULE 50 MG PO ×4 (00:07→22:47)
[2020-02-23 05:38] LABS: Basophils Percent Auto 0.8 % (0.2-1.2); Eosinophils Absolute Auto 0.1 K/mm3 (0-0.3); Eosinophils Percent Auto 2.3 % (0-4.4); Hematocrit 24.5 % (37.0-47.0); Hemoglobin 7.5 g/dL (12.0-15.0); Immature Granulocyte Absolute 0.05 K/mm3 (0.00-0.031); Immature Granulocyte Percent A 1.9 % (0-0.5); Immature Platelet Fraction Pct 6.5 % (0.9-11.2); Lymphocytes Absolute Auto 0.75 K/mm3 (0.9-3.2); Lymphocytes Percent Auto 29.2 % (18.3-44.2); Mean Corpuscular HGB Conc 30.6 g/dl (32-36); Mean Corpuscular Hemoglobin 26.4 pg (26-34); Mean Corpuscular Volume 86.3 fl (80-100); Mean Platelet Volume 10.1 fl (7.4-10.4); Monocytes Absolute Auto 0.2 K/mm3 (0.1-0.6); Monocytes Percent Auto 6.6 % (2.6-8.5); Neutrophils Absolute Auto 1.5 K/mm3 (1.3-6.7); Neutrophils Percent Auto 59.2 % (45.5-73.1); Nucleated Red Blood Cells Perc 1.6 % (0.0-0.2); Platelet Count Result 89 k/mm3 (150-375); Red Blood Count 2.84 M/mm3 (4.2-5.4); Red Cell Distribution Width 25.1 % (11.5-14.5); White Blood Count 2.6 K/mm3 (4.5-10.0)
[2020-02-23 05:52] LABS: Ammonia 12 umol/L (9-30)
[2020-02-23 05:53] LABS: Alanine Aminotransferase 81 U/L (4-35); Albumin Level 2.6 g/dL (3.5-5.1); Alkaline Phosphatase 235 U/L (38-126); Aspartate Amino Transferase 301 U/L (14-36); Bilirubin Direct 1.7 mg/dL (0-0.3); Bilirubin,Total 4.4 mg/dL (0.2-1.3); Blood Urea Nitrogen 5 mg/dL (7-17); Calcium 7.6 mg/dL (8.4-10.2); Carbon Dioxide 26 mmol/L (22-30); Chloride 102 mmol/L (98-107); Estimated CRCL calculation 98 ml/min; Estimated Glomerular Filt Rate > 60; Glucose 89 mg/dL (65-105); Magnesium 1.5 mg/dL (1.6-2.3); Potassium 3.8 mmol/L (3.4-5.0); Sodium 134 mmol/L (137-145)
[2020-02-23 06:45] LABS: Hepatitis B Surface Antigen Negative (Negative)
[2020-02-23 06:51] LABS: HAV RESULT Negative (Negative); Hepatitis B Core IgM Result Negative (Negative)
[2020-02-23 07:02] LABS: Hepatitis C Virus Antibody Negative (Negative)
[2020-02-23] MEDS: POTASSIUM/PHOSPHORUS/SODIUM 1.5 GM PACKET 1 PACKET PO (08:33)
[2020-02-23] MEDS: PANTOPRAZOLE SODIUM IV 40 MG VIAL IV PUSH (09:51)
[2020-02-23] MEDS: THIAMINE HCL 200 MG/2 ML VIAL 100 MG IV PUSH (09:51)
[2020-02-23] MEDS: FOLIC ACID 1 MG/0.2 ML INJ IV PUSH (09:53)
[2020-02-23] MEDS: MAGNESIUM SULF 2 GM/WATER 50ML 2 GM/50 ML BAG IVPB (09:54)
--- NOTE | 2020-02-23 14:05 | WPDGIPROGNO ---
Progress Note: A&P Assessment and Plan (1) Acute alcoholic hepatitis: Code(s): K70.10 - Alcoholic hepatitis without ascites Status: Acute Assessment and Plan: liver enzymes stable, normal renal function continue supportive care and monitor for withdrawal symptoms nutritional support, encourage to eat will need AA and stop drinking altogether (2) Pancytopenia: Code(s): D61.818 - Other pancytopenia Status: Acute Assessment and Plan: could be from alcohol abuse with liver disease and marrow toxicity. she was evaluated by hem-onc- ?? h/o leukemia but apparently never treated or had bone marrow bx (3) Alcohol withdrawal: Qualifiers: Complication of substance-induced condition: uncomplicated Qualified Code(s): F10.230 - Alcohol dependence with withdrawal, uncomplicated Code(s): F10.239 - Alcohol dependence with withdrawal, unspecified Status: Acute Assessment and Plan: [facility] (4) Hypomagnesemia: Code(s): E83.42 - Hypomagnesemia Status: Acute Subjective Date/time seen: 02/23/20 14:05 Interval history: she was moved to regular floor, she is still quite anxious and unsteady gait, tolerating diet Review of Systems Review of Systems: All systems reviewed & are unremarkable except as noted in HPI and below Exam Const: General: comfortable and no acute distress HENMT: Mouth: Yes dry mucous membranes Eyes: General: appearance normal, both eyes and all related structures Other: Sclera icteric Neck: Neck: supple and no JVD Resp: Effort & Inspection: normal respiratory effort Auscultation: clear to auscultation bilaterally Cardio: Rate: regular rate and tachycardic GI: Inspection: non-distended GI Palp: Yes Soft to palpation and No Tenderness to palpation present (GI) Auscultation: normal bowel sounds : Other: Deferred Urinary Catheter: Urinary Catheter: urine dark Skin: Rashes: no rashes Other: Bruising noted on bilateral lower extremity Neuro: Cognition (Neuro): normal cognition Speech: normal speech Other: Patient is awake, alert, oriented x3 nonfocal Extrem: General: normal to inspection, no edema and no pedal edema Psych: Affect: Anxious affect present Objective Data Vital Signs Vital Signs: Vital Signs - 24 hr 02/22/20 15:47 02/22/20 16:00 02/22/20 18:00 Temperature 97.9 F Pulse Rate 106 H 86 96 Pulse Rate [Right Radial] 86 Respiratory Rate 20 Blood Pressure 113/74 113/74 Pulse Oximetry 100 02/22/20 22:00 02/23/20 00:00 02/23/20 02:00 Temperature 97.6 F 97.2 F L Pulse Rate 95 91 Pulse Rate [Right Radial] 86 90 Respiratory Rate 20 16 Blood Pressure 115/77 108/74 Pulse Oximetry 100 100 02/23/20 04:00 02/23/20 05:50 02/23/20 08:00 Temperature 98.3 F Pulse Rate 103 H Pulse Rate [Right Radial] 88 88 Respiratory Rate 16 Blood Pressure 119/84 Pulse Oximetry 100 02/23/20 10:05 Temperature 98.1 F Pulse Rate 102 H Pulse Rate [Right Radial] Respiratory Rate 18 Blood Pressure 106/74 Pulse Oximetry 97 Intake/Output Intake/Output: Intake & Output 02/20/20 02/21/20 02/22/20 02/23/20 23:59 23:59 23:59 23:59 Intake Total 2013.2 3180 1080 Output Total 750 1150 Balance 2013.2 6370 -70 Meds/Results Medications: Active Medications Generic Name Dose Route Start Last Admin Trade Name Freq PRN Reason Stop Dose Admin Chlordiazepoxide HCl 50 mg 02/22/20 05:00 02/23/20 11:45 Librium Po PO 50 mg Q6HR ROSLYN Administration Folic Acid 1 mg 02/23/20 09:00 02/23/20 09:53 Folic Acid Inj IV PUSH 1 mg QAM ROSLYN Administration Levofloxacin 500 mg 02/23/20 09:00 02/23/20 08:33 Levaquin Tab PO 500 mg DAILY ROSLYN Administration Lorazepam 1 mg 02/21/20 21:54 02/23/20 08:30 Ativan Inj IV PUSH 1 mg Q4H PRN Administration Withdrawal Ondansetron HCl 4 mg 02/21/20 20:52 02/22/20 08:22 Zofran Inj IV PUSH 4 mg Q4
--- NOTE | 2020-02-23 15:26 | PM.IMPN ---
Progress Note: A&P Assessment and Plan (1) Alcohol withdrawal: Qualifiers: Complication of substance-induced condition: uncomplicated Qualified Code(s): F10.230 - Alcohol dependence with withdrawal, uncomplicated Code(s): F10.239 - Alcohol dependence with withdrawal, unspecified Status: Acute Assessment and Plan: Patient was admitted to the ICU with plans for Precedex drip but this was never started. Remains of scheduled Librium with Ativan available as needed. Continue CIWA protocol. Monitor closely. Increase activity level. PT/OT. (2) Acute alcoholic hepatitis: Code(s): K70.10 - Alcoholic hepatitis without ascites Status: Acute Assessment and Plan: LFTs elevated on admission but better than last checked on 02/15. Status post cholecystectomy. Iron studies showing iron saturation 64% but felt that hemochromatosis less likely and more likely related to her underlying liver disease. RUQ US showing hepatic steatosis. LFTs are trending down. Appreciate GI input. (3) Pancytopenia: Code(s): D61.818 - Other pancytopenia Status: Acute Assessment and Plan: Likely secondary to dietary deficiency and alcoholism. Levels low but stable. B12 normal. Monitor blood counts and transfuse prn. Hematology following. (4) Alcoholism: Code(s): F10.20 - Alcohol dependence, uncomplicated Status: Acute Assessment and Plan: Patient has history of alcohol abuse. She has been educated about the benefit of abstaining from alcohol. This will need to be reinforced. CC to provide information about AA and other treatment choices. Continue thiamine and Folate. Continue scheduled Librium. (5) Abnormal drug screen: Code(s): R89.2 - Abnormal level of other drugs, medicaments and biological substances in specimens from other organs, systems and tissues Status: Acute Assessment and Plan: Urine drug screen positive for amphetamines. The patient states she takes Adderall at home. (6) Histiocytosis: Code(s): D76.3 - Other histiocytosis syndromes Status: Acute Assessment and Plan: Patient states she has a history of histiocytosis. No enlarged lymph nodes noted by CT scans recently. Patient can follow-up with her doctor for further workup/treatment. (7) Alcoholic fatty liver: Code(s): K70.0 - Alcoholic fatty liver Status: Acute Assessment and Plan: CT scan performed on February 15 showing prominent hepatic steatosis. Could partially explain her liver test abnormalities. (8) UTI (urinary tract infection): Code(s): N39.0 - Urinary tract infection, site not specified Status: Acute Assessment and Plan: UA noted. UCx positive. She is allergic to Rocephin and PCN. Levaquin started. Follow up on final UCx results. UCx growing EColi but resistant to Levaquin. Bactrim and Nitrofurantoin not good choices with her underlying hepatic disease. Change to Ertapenem and will discuss with kirti about what she has used in the past. (9) Hypomagnesemia: Code(s): E83.42 - Hypomagnesemia Status: Acute Assessment and Plan: Mag level low again. Will replace. Continue to monitor and replace as needed. Subjective Date/time seen: 02/23/20 15:26 Interval history: 39yo female here for alcohol withdrawal. Admitted to ICU for possible Precedex drip but never required. Date of service 02/23/2020: Slept okay. having hot and cold sweats. Feeling poorly overall. no CP or abd pain. Not been out of bed. No SOB. Staff state patient very weak. Exam Narrative: Exam Narrative: AF 110/66 104 18 96% ra Gen - NARD Chest - CTA bilaterally, nml RR CV - RRR S1/S2 Abd -soft, NT/ND, +BS Ext - No pedal edema. Neuro - no focal weaknesss Psych - Nml mood and affect. No tremors. No diaphoresis. Skin - jaundice Objective Data Vital Signs Vital Signs:
--- NOTE | 2020-02-23 16:22 | WPDONCPN ---
Progress Note: A/P - Additional Plan Pancytopenia. This is likely secondary to history of heavy alcohol abuse and liver disease. Do not see any abnormality in the differential to suggest acute leukemia. We will hold on performing bone marrow biopsy. Patient has been provided with my office information to follow-up. It we will try to gather records from the previous oncologist in my office as well. Liver failure. This is secondary to alcohol abuse. - Time Spent With Patient Total time spent is greater than 50% in coordination of care (as documented) at patient's floor/unit and/or counseling patient: 15 - 25 minutes Subjective Interval history: Pancytopenia Alcohol abuse History of leukemia of unclear type History of histiocytosis Review of Systems - Review of Systems Patient is more awake and alert. She denies any bleeding and bruising. She denies any fevers and chills. She is feeling more stronger. No other new complaints. - Neurologic Reports hearing normal, Denies headache(s), Denies weakness Exam Vital signs: Temp Pulse Resp BP Pulse Ox 36.5 C 104 H 18 110/66 96 02/23/20 14:00 02/23/20 14:00 02/23/20 14:00 02/23/20 14:00 02/23/20 14:00 Narrative: Lungs are clear to auscultation bilaterally Cardiovascular regular rate rhythm no murmurs Abdomen soft nontender nondistended bowel sounds are positive Extremities no edema PN: Objective Data - Labs CBC & Chem 7: 02/23/20 05:26 02/23/20 05:26 Labs: Laboratory Results - last 24 hr 02/22/20 02/23/20 02/23/20 18:41 05:26 05:26 WBC 2.6 L RBC 2.84 L Hgb 7.5 L Hct 24.5 L MCV 86.3 MCH 26.4 MCHC 30.6 L RDW 25.1 H Plt Count 89 L MPV 10.1 Immature Gran % (Auto) 1.9 H Neut % (Auto) 59.2 Lymph % (Auto) 29.2 [place] % (Auto) 6.6 Eos % (Auto) 2.3 Baso % (Auto) 0.8 Lymph # (Auto) 0.75 L [place] # (Auto) 0.2 Eos # (Auto) 0.1 Baso # (Auto) 0.0 Abs Immat Gran (auto) 0.05 H Absolute Neuts (auto) 1.5 Absolute Nucleated RBC 0.0 Nucleated RBC % 1.6 H % Immature Plt Fraction 6.5 Sodium 134 L Potassium 3.8 Chloride 102 Carbon Dioxide 26 BUN 5 L Creatinine 0.60 L Estim Creat Clear Calc 98 Estimated GFR > 60 Glucose 89 Calcium 7.6 L Phosphorus 2.0 L Magnesium 1.5 L Total Bilirubin 4.4 H Direct Bilirubin 1.7 H AST 301 H ALT 81 H Alkaline Phosphatase 235 H Ammonia Total Protein 6.0 L Albumin 2.6 L Vitamin B12 > 1000.0 H Hepatitis A IgM Ab Hep Bs Antigen Hep B Core IgM Ab Hepatitis C Ab Screen 02/23/20 02/23/20 05:26 05:26 WBC RBC Hgb Hct MCV MCH MCHC RDW Plt Count MPV Immature Gran % (Auto) Neut % (Auto) Lymph % (Auto) [place] % (Auto) Eos % (Auto) Baso % (Auto) Lymph # (Auto) [place] # (Auto) Eos # (Auto) Baso # (Auto) Abs Immat Gran (auto) Absolute Neuts (auto) Absolute Nucleated RBC Nucleated RBC % % Immature Plt Fraction Sodium Potassium Chloride Carbon Dioxide BUN Creatinine Estim Creat Clear Calc Estimated GFR Glucose Calcium Phosphorus Magnesium Total Bilirubin Direct Bilirubin AST ALT Alkaline Phosphatase Ammonia 12 Total Protein Albumin Vitamin B12 Hepatitis A IgM Ab Negative Hep Bs Antigen Negative Hep B Core IgM Ab Negative Hepatitis C Ab Screen Negative
[2020-02-23] MEDS: ERTAPENEM 1 GM/NS 50 ML 1 GM/50 ML BAG IVPB (20:17)
--- NOTE | 2020-02-23 22:51 | PC.NURSE ---
Pt requesting Ativan explained to her that was only allowed to be given if she falls under certain guidelines based on my assessment of her. At prior time I was in the room she was sleeping. Later called me to room because antibiotic was done. At that time she was asking if we had [employer]. Explained to her that we couldn't have food delivered to floor
[2020-02-24 01:57] VITALS: BP 126/85; PULSE 97; RESP 16; TEMP 36.1; O2SAT 99
[2020-02-24 06:00] VITALS: BP 105/69; PULSE 107; RESP 16; TEMP 36.2; O2SAT 95
[2020-02-24] MEDS: chlordiazePOXIDE 25 MG CAPSULE 50 MG PO ×3 (06:20→18:56)
[2020-02-24 06:34] LABS: Hematocrit 26.1 % (37.0-47.0); Hemoglobin 7.8 g/dL (12.0-15.0); Mean Corpuscular HGB Conc 29.9 g/dl (32-36); Mean Corpuscular Hemoglobin 26.5 pg (26-34); Mean Corpuscular Volume 88.8 fl (80-100); Mean Platelet Volume 10.4 fl (7.4-10.4); Platelet Count Result 98 k/mm3 (150-375); Red Blood Count 2.94 M/mm3 (4.2-5.4); White Blood Count 3.2 K/mm3 (4.5-10.0)
[2020-02-24 06:51] LABS: Alanine Aminotransferase 72 U/L (4-35); Albumin Level 2.6 g/dL (3.5-5.1); Alkaline Phosphatase 241 U/L (38-126); Aspartate Amino Transferase 214 U/L (14-36); Bilirubin,Total 4.9 mg/dL (0.2-1.3); Blood Urea Nitrogen 3 mg/dL (7-17); Carbon Dioxide 27 mmol/L (22-30); Chloride 103 mmol/L (98-107); Estimated CRCL calculation 98 ml/min; Estimated Glomerular Filt Rate > 60; Glucose 90 mg/dL (65-105); Potassium 3.9 mmol/L (3.4-5.0); Sodium 135 mmol/L (137-145)
--- NOTE | 2020-02-24 08:30 | WPDGIPROGNO ---
Progress Note: A&P Assessment and Plan (1) Acute alcoholic hepatitis: Code(s): K70.10 - Alcoholic hepatitis without ascites Status: Acute Assessment and Plan: slowly recoverin with supportive care and nutritional support she would like to attend AA after living the hospital viral hepatitis panel negative home soon (2) Pancytopenia: Code(s): D61.818 - Other pancytopenia Status: Acute Assessment and Plan: could be from alcohol abuse with liver disease and marrow toxicity. she was evaluated by hem-onc- pending old records (3) Alcohol withdrawal: Qualifiers: Complication of substance-induced condition: uncomplicated Qualified Code(s): F10.230 - Alcohol dependence with withdrawal, uncomplicated Code(s): F10.239 - Alcohol dependence with withdrawal, unspecified Status: Acute Assessment and Plan: [facility] protocol (4) Hypomagnesemia: Code(s): E83.42 - Hypomagnesemia Status: Acute Subjective Date/time seen: 02/24/20 08:30 Interval history: she is tolerating diet, feeling better, no pain. Still anxious Review of Systems Review of Systems: All systems reviewed & are unremarkable except as noted in HPI and below Exam Const: General: comfortable and no acute distress HENMT: General nose exam: Normal nares present Eyes: General: appearance normal, both eyes and all related structures Other: Sclera icteric Neck: Neck: supple and no JVD Resp: Effort & Inspection: normal respiratory effort Auscultation: clear to auscultation bilaterally Cardio: Rate: regular rate and tachycardic GI: Inspection: non-distended GI Palp: Yes Soft to palpation and No Tenderness to palpation present (GI) Auscultation: normal bowel sounds : Other: Deferred Skin: General skin exam: jaundice Rashes: no rashes Neuro: Cognition (Neuro): normal cognition Speech: normal speech Other: Patient is awake, alert, oriented x3 nonfocal Extrem: General: normal to inspection, no edema and no pedal edema Psych: Affect: Anxious affect present Objective Data Vital Signs Vital Signs: Vital Signs - 24 hr 02/23/20 10:05 02/23/20 14:00 02/23/20 18:00 Temperature 98.1 F 97.7 F 97.7 F Pulse Rate 102 H 104 H 89 Respiratory Rate 18 18 16 Blood Pressure 106/74 110/66 100/54 L Pulse Oximetry 97 96 98 02/23/20 22:00 02/24/20 01:57 02/24/20 06:00 Temperature 96.7 F L 96.9 F L 97.1 F L Pulse Rate 94 97 107 H Respiratory Rate 16 16 16 Blood Pressure 126/82 126/85 105/69 Pulse Oximetry 97 99 95 Intake/Output Intake/Output: Intake & Output 02/21/20 02/22/20 02/23/20 02/24/20 23:59 23:59 23:59 23:59 Intake Total 2013.2 3180 1730 600 Output Total 750 2450 500 Balance 2013.2 8900 -720 100 Meds/Results Medications: Active Medications Generic Name Dose Route Start Last Admin Trade Name Freq PRN Reason Stop Dose Admin Chlordiazepoxide HCl 50 mg 02/22/20 05:00 02/24/20 06:20 Librium Po PO 50 mg Q6HR ROSLYN Administration Folic Acid 1 mg 02/23/20 09:00 02/23/20 09:53 Folic Acid Inj IV PUSH 1 mg QAM ROSLYN Administration Ertapenem 1 gm in 50 mls @ 100 mls/hr 02/23/20 21:00 02/23/20 20:47 Invanz 1 Gm/Ns 50 Ml IVPB Infused HS ROSLYN Infusion Lorazepam 1 mg 02/23/20 18:17 02/24/20 02:56 Ativan Inj IV PUSH 1 mg Q4H PRN Administration for CIWA score >10 Ondansetron HCl 4 mg 02/21/20 20:52 02/22/20 08:22 Zofran Inj IV PUSH 4 mg Q4H PRN Administration Nausea Pantoprazole Sodium 40 mg 02/22/20 09:00 02/23/20 09:51 Protonix Iv IV PUSH 40 mg QAM ROSLYN Administration Thiamine HCl 100 mg 02/22/20 09:00 02/23/20 09:51 Thiamine Hcl Inj IV PUSH 100 mg DAILY ROSLYN Administration Radiology Results: ITS Impressions Upper Quadrant Ultrasound 02/23/20 09:33 IMPRESSION: 1. Diffuse hepatic steatosis. Labs Labs: Laboratory Results - last 24 hr 02/24/20 02/24/20 06:
--- NOTE | 2020-02-24 08:41 | PM.IMPN ---
Progress Note: A&P Assessment and Plan (1) Alcohol withdrawal: Qualifiers: Complication of substance-induced condition: uncomplicated Qualified Code(s): F10.230 - Alcohol dependence with withdrawal, uncomplicated Code(s): F10.239 - Alcohol dependence with withdrawal, unspecified Status: Acute Assessment and Plan: Patient was admitted to the ICU with plans for Precedex drip but this was never started. Remains of scheduled Librium with Ativan available as needed. Continue CIWA protocol. Monitor closely. Increase activity level. PT/OT. (2) Acute alcoholic hepatitis: Code(s): K70.10 - Alcoholic hepatitis without ascites Status: Acute Assessment and Plan: LFTs elevated on admission but better than last checked on 02/15. Status post cholecystectomy. Iron studies showing iron saturation 64% but felt that hemochromatosis less likely and more likely related to her underlying liver disease. RUQ US showing hepatic steatosis. LFTs are trending down except bili about the same. Appreciate GI input. (3) Pancytopenia: Code(s): D61.818 - Other pancytopenia Status: Acute Assessment and Plan: Likely secondary to dietary deficiency and alcoholism. Levels low but stable. B12 normal. Monitor blood counts and transfuse prn. Hematology following. (4) Alcoholism: Code(s): F10.20 - Alcohol dependence, uncomplicated Status: Acute Assessment and Plan: Patient has history of alcohol abuse. She has been educated about the benefit of abstaining from alcohol. This has been reinforced. CC to provide information about AA and other treatment choices. Continue thiamine and Folate. Continue scheduled Librium. Ativan for CIWA >10. (5) Abnormal drug screen: Code(s): R89.2 - Abnormal level of other drugs, medicaments and biological substances in specimens from other organs, systems and tissues Status: Acute Assessment and Plan: Urine drug screen positive for amphetamines. The patient states she takes Adderall at home. (6) Histiocytosis: Code(s): D76.3 - Other histiocytosis syndromes Status: Acute Assessment and Plan: Patient states she has a history of histiocytosis. No enlarged lymph nodes noted by CT scans recently. Patient can follow-up with her doctor for further workup/treatment. (7) Alcoholic fatty liver: Code(s): K70.0 - Alcoholic fatty liver Status: Acute Assessment and Plan: CT scan performed on February 15 showing prominent hepatic steatosis and seen again by right upper quadrant ultrasound here. Could partially explain her liver test abnormalities. (8) UTI (urinary tract infection): Code(s): N39.0 - Urinary tract infection, site not specified Status: Acute Assessment and Plan: UCx growing EColi but resistant to Levaquin. Bactrim and Nitrofurantoin not good choices with her underlying hepatic disease and pancytopenia. Started on Ertapenem. Has not been on other abx and has allergy to PCN and Rocephin. Consider macrobid since liver tests returning to normal and coags normal to suggest normal synthetic function intact. (9) Hypomagnesemia: Code(s): E83.42 - Hypomagnesemia Status: Acute Assessment and Plan: Mag level low at times and has been replaced. Subjective Date/time seen: 02/24/20 08:41 Interval history: 39yo female here for alcohol withdrawal. Admitted to ICU for possible Precedex drip but never required. Date of service 02/24/2020: Slept well last night. No problems overnight. She feels that her unsteady gait is better today. Normal bowel movements. Eating normally but has decreased appetite. She still has a dry cough that she has had for past 2 weeks. She lives at home with a boyfriend. Exam Narrative: Exam Narrative: AF 105/69 107 16 95% ra Gen - NARD Chest - CTA bilaterally, nml RR CV - RRR S1/
--- NOTE | 2020-02-24 09:20 | PC.NURSE ---
I called pharmacy to notify them that I was missing my 0900 dose of Folic acid. They said that they would tube it up.
[2020-02-24] MEDS: PANTOPRAZOLE SODIUM IV 40 MG VIAL IV PUSH (09:28)
[2020-02-24] MEDS: THIAMINE HCL 200 MG/2 ML VIAL 100 MG IV PUSH (09:28)
[2020-02-24 10:00] VITALS: BP 114/81; PULSE 109; RESP 18; TEMP 36.7; O2SAT 100
[2020-02-24] MEDS: FOLIC ACID 1 MG/0.2 ML INJ IV PUSH (10:28)
[2020-02-24 14:00] VITALS: BP 117/79; PULSE 98; RESP 16; TEMP 36.7; O2SAT 100
--- NOTE | 2020-02-24 14:25 | PM.DS ---
DS: Admitting Diagnosis Admitting Diagnosis Admitting Diagnosis: Alcohol dependence with withdrawal, uncomplicated DS: Discharge Diagnosis Discharge Diagnosis (1) Alcohol withdrawal: Qualifiers: Complication of substance-induced condition: uncomplicated Qualified Code(s): F10.230 - Alcohol dependence with withdrawal, uncomplicated Code(s): F10.239 - Alcohol dependence with withdrawal, unspecified Status: Acute Assessment and Plan: Patient was admitted to the ICU with plans for Precedex drip but this was never started. Started on scheduled Librium with Ativan available as needed. Monitored with CIWA protocol. When she improved, we increased activity level and she worked with PT/OT. (2) Acute alcoholic hepatitis: Code(s): K70.10 - Alcoholic hepatitis without ascites Status: Acute Assessment and Plan: LFTs elevated on admission but better than last checked on 02/15. Status post cholecystectomy. Iron studies showing iron saturation 64% but felt that hemochromatosis less likely and more likely related to her underlying liver disease. [place] elevated liver tests related to alcoholic hepatitis. RUQ US showing hepatic steatosis which may be contributing to the elevated LFTs as well. ASTand ALT are trending down except bili about the same. Appreciate GI input. (3) Pancytopenia: Code(s): D61.818 - Other pancytopenia Status: Acute Assessment and Plan: Likely secondary to dietary deficiency and alcoholism. Levels low but stable. B12 normal. Appreciate Hematology input. (4) Alcoholism: Code(s): F10.20 - Alcohol dependence, uncomplicated Status: Acute Assessment and Plan: Patient has history of alcohol abuse. She has been educated about the benefit of abstaining from alcohol. This has been reinforced. CC provided information about AA and other treatment choices. Treated with thiamine, folate and Librium. Ativan for CIWA >10. (5) Abnormal drug screen: Code(s): R89.2 - Abnormal level of other drugs, medicaments and biological substances in specimens from other organs, systems and tissues Status: Acute Assessment and Plan: Urine drug screen positive for amphetamines. The patient states she takes Adderall at home. (6) Histiocytosis: Code(s): D76.3 - Other histiocytosis syndromes Status: Acute Assessment and Plan: Patient states she has a history of histiocytosis. No enlarged lymph nodes noted by CT scans recently. Patient can follow-up with her doctor for further workup/treatment. (7) Alcoholic fatty liver: Code(s): K70.0 - Alcoholic fatty liver Status: Acute Assessment and Plan: CT scan performed on February 15 showing prominent hepatic steatosis and seen again by right upper quadrant ultrasound here. Could partially explain her liver test abnormalities. (8) UTI (urinary tract infection): Code(s): N39.0 - Urinary tract infection, site not specified Status: Acute Assessment and Plan: UCx growing EColi but resistant to Levaquin. Bactrim not good choices with her underlying hepatic disease and pancytopenia. Started on Ertapenem. Has not been on other abx and has allergy to PCN and Rocephin. Discussed with GI who felt a few days of macrobid would be safe since liver tests returning to normal and coags normal to suggest normal synthetic function intact. (9) Hypomagnesemia: Code(s): E83.42 - Hypomagnesemia Status: Acute Assessment and Plan: Mag level low at times and has been replaced. DS: Summary Hospital Course Reason for hospitalization: 39yo female here for alcohol withdrawal. Please see H&P for details. Hospital Course: as above Time Spent with Patient Time attestation: Total time spent providing and/or coordinating discharge services: 32 minutes Time spent: Greater than 30 minutes Exam Narrative: Ex
--- NOTE | 2020-02-24 17:30 | PC.NURSE ---
I gave the patient the discharge instructions and she understands and has no questions. I gave the patient a list of resources to use from Care Coordination after discharge. The patient is waiting for a ride home.
[2020-02-24 18:00] VITALS: BP 123/81; PULSE 104; RESP 18; TEMP 36.1; O2SAT 100
[2020-02-24 20:27] VITALS: BP 101/64; PULSE 90; RESP 18; TEMP 36.6; O2SAT 98
--- NOTE | 2020-02-25 10:54 | PC.NURSE ---
Pt called, stating that she has lost her folder containing discharge paperwork, referrals for rehab, community resources, dietary recommendations, labs, & prescription for librium. Pt request that we provide these items for her to give to DCFS. Paperwork for resources & discharge instructions reprinted. Pharmacy called to provide scripts for non-controlled medications. Pt was informed that we cannot provide a reprint of a controlled substance. Pt stated that she will look around the house for the folder. A replacement folder will left at the front entrance for her to peanut picker.
[2020-02-27 00:12] LABS: Ceruloplasmin 23 mg/dL (18-53)
--- NOTE | 2020-02-28 10:42 | PC.NURSE ---
Ceruloplasmin- 23. Dr. Lisa lou.
--- NOTE | 2020-02-29 13:13 | PC.NURSE ---
Patient called with questions about the Librium she was discharged on from the hospital. Patient asked about the side effects, education about the medication and side effects were given to the patient. Patients significant other then began yelling and the two began to argue over the phone about how he takes the medication as well but he is concerned she is too lethargic and has swelling and is concerned that she may be taking to much of the medication. Explained to both the patient and the significant other that these concerns should be addressed by calling an ambulance, bringing her back to the ER, or speaking with her primary physician.
--- NOTE | 2020-03-04 15:00 | PC.NURSE ---
A1AT is phenotype PI*MM
--- NOTE | 2020-04-02 15:14 | PC.NURSE ---
Hemochromatosis- positive for one HFE gene. [id number]. Dr. Gonzalez aware. Pt has no PCP.
--- NOTE | 2020-04-04 08:29 | PC.NURSE ---
Hemochromatosis result faxed to Dr. Nicholas Chauhan. Dr. Lisa lou.
== END 2020-02-24 20:37 | disposition home or self-care (01) | DRG 775 ==
LOC: ANHED 21:07 → ANHICU 21:49 → ANH2MED 02-22 20:34
PROVIDERS: Family Medicine; Internal Medicine; Internal Medicine Hematology & Oncology; Admitting Provider Family Medicine; Emergency Provider General Practice; Visit Provider Internal Medicine
DX: F10.239 Alcohol dependence with withdrawal, unspecified (principal); K70.10 Alcoholic hepatitis without ascites; D61.818 Other pancytopenia; D76.3 Other histiocytosis syndromes; K70.0 Alcoholic fatty liver; R89.2 Abnormal level of other drugs, medicaments and biological substances in specimens from other organs, systems and tissues; N39.0 Urinary tract infection, site not specified; E83.42 Hypomagnesemia; Z98.84 Bariatric surgery status
CPT/HCPCS: 36415; 76705; 80053; 80074; 80307; 81001; 81025; 81256; 82104; 82140; 82248; 82390; 82607; 83540; 83550; 83735; 84100; 84443; 85025; 85027; 85055; 87077; 87086; 87088; 87186; 93005; 96361; 96365; 96375; 97162; 97165; 99285; A9270; C9113; J1335; J2060; J2405; J3360; J3411; J3475; J7030; J7120; J7121

== ENCOUNTER 2021-02-10 16:53 | Emergency (ER) | payer OTHER, SELFPAY ==
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
[2021-02-10 17:11] VITALS: BP 140/93; PULSE 66; RESP 14; TEMP 36.6; O2SAT 99
[2021-02-10] MEDS: CYCLOBENZAPRINE HCL 10 MG TABLET PO (17:59)
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
[2021-02-10 20:14] VITALS: BP 128/63; PULSE 70; RESP 16; O2SAT 100
== END 2021-02-10 20:14 | disposition home or self-care (01) ==
PROVIDERS: Emergency Provider General Practice
DX: M25.461 Effusion, right knee (principal); S46.911A Strain of unspecified muscle, fascia and tendon at shoulder and upper arm level, right arm, initial encounter; S66.912A Strain of unspecified muscle, fascia and tendon at wrist and hand level, left hand, initial encounter; S66.911A Strain of unspecified muscle, fascia and tendon at wrist and hand level, right hand, initial encounter; W07.XXXA Fall from chair, initial encounter; Y92.811 Bus as the place of occurrence of the external cause
CPT/HCPCS: 73030; 73110; 73564; 99284; A9270

== ENCOUNTER 2021-12-30 16:27 | Outpatient (CLI) | payer OTHER, SELFPAY ==
--- NOTE | ~2021-12-30 | MR_ITS ---
EXAMINATION: MR cervical spine wo con DATE: 12/30/2021 17:34 INDICATION: Neck and back pain. TECHNIQUE: Magnetic resonance imaging (MRI) of the cervical spine was performed without intravenous c ontrast. Sequences included sagittal T2-weighted FSE, sagittal T2-weighted FS FSE, sagittal T1-weight ed FSE, axial MERGE, and axial T2-weighted FSE. COMPARISON: None FINDINGS: Craniocervical association and atlantoaxial joint are intact. Normal alignement. Vertebral body heights are maintained. Disc dehydration with reactive endplate changes at C5-6. The cord signal is normal. The following disc levels are specifically discussed: C2-C3: The disc does not extend beyond the endplate margin. There is mild left uncovertebral joint os teoarthritis. There is no facet joint osteoarthritis. There is no neural foraminal stenosis. There is no central canal stenosis. C3-C4: The disc does not extend beyond the endplate margin. There is mild bilateral uncovertebral bunny nt osteoarthritis. There is no facet joint osteoarthritis. There is no neural foraminal stenosis. The re is no central canal stenosis. C4-C5: The disc does not extend beyond the endplate margin. There is mild bilateral uncovertebral bunny nt osteoarthritis. There is no facet joint osteoarthritis. There is no neural foraminal stenosis. The re is no central canal stenosis. C5-C6: Mild diffuse bulge. There is mild uncovertebral joint osteoarthritis. There is no facet joint osteoarthritis. There is no neural foraminal stenosis. There is no central canal stenosis. C6-C7: The disc does not extend beyond the endplate margin. There is mild uncovertebral joint osteoar thritis. There is no facet joint osteoarthritis. There is no neural foraminal stenosis. There is no c entral canal stenosis. C7-T1: The disc does not extend beyond the endplate margin. There is mild uncovertebral joint osteoar thritis. There is no facet joint osteoarthritis. There is no neural foraminal stenosis. There is no c entral canal stenosis. IMPRESSION: 1. Mild degenerative disc disease at C5-6, with reactive endplate marrow edema. 2. No severe central canal or neural foraminal narrowing. Reviewed, dictated and finalized at location K.
== END 2021-12-30 16:28 | disposition home or self-care (01) ==
PROVIDERS: Visit Provider Physical Medicine & Rehabilitation
DX: M50.322 Other cervical disc degeneration at C5-C6 level (principal)
CPT/HCPCS: 72141

== ENCOUNTER 2023-01-13 14:03 | Emergency (ER) | payer OTHER, SELFPAY ==
--- NOTE | ~2023-01-13 | XR_ITS ---
EXAMINATION: XR forearm RT 2V DATE: 01/13/2023 15:36 INDICATION: Right forearm injury. TECHNIQUE: 2 views of right forearm were obtained. COMPARISON: None. FINDINGS: Bone alignment is normal. No fracture. Joint spaces are well maintained. There is no elbow joint effusion. IMPRESSION: 1. Normal right forearm. Reviewed, dictated and finalized at location A. IMPRESSION: 1. Normal right forearm.
--- NOTE | ~2023-01-13 | XR_ITS ---
EXAMINATION: XR humerus RT DATE: 01/13/2023 15:36 INDICATION: Right upper arm injury. TECHNIQUE: 2 views of right humerus were obtained. COMPARISON: None. FINDINGS: Bone alignment is normal. No fracture. Glenohumeral joint is normal. There is moderate acro mioclavicular joint osteoarthritis. IMPRESSION: 1. Moderate right acromioclavicular joint osteoarthritis. Reviewed, dictated and finalized at location A.
[2023-01-13 14:30] VITALS: BP 121/75; PULSE 71; RESP 18; TEMP 36.9; O2SAT 100
--- NOTE | 2023-01-13 15:25 | ED.UPPEXIN ---
HPI - Extremity Injury (Upper) General Chief Complaint: Extremity Injury, Upper Stated Complaint: injury right arm Source: patient Mode of arrival: ambulatory Limitations: no limitations History of Present Illness HPI narrative: 42-year-old female presenting for complaint of right forearm pain after injury today. States she was caring boxes when she fell and landed on the right arm. She endorses bruising and swelling to the forearm, and pain from the hand to the shoulder. Also reports right elbow pain. Patient has full ROM to shoulder and elbow. Denies numbness, tingling, weakness of the extremity. Has not taken anything for pain. Related Data Home Medications Medication Instructions Recorded Confirmed dextroamphetamine-amphetamine 30 30 mg PO TID 02/16/20 01/13/23 mg tablet Allergies Allergy/AdvReac Type Severity Reaction Status Date / Time Penicillins Allergy Intermediate Swelling Verified 01/13/23 14:14 adhesive tape Allergy Mild Rash Verified 01/13/23 14:14 ceftriaxone Allergy Mild Rash Verified 01/13/23 14:14 Review of Systems Review of Systems: CONSTITUTIONAL: Denies body aches, fever, chills EYES: Denies visual changes ENT: Denies rhinorrhea, congestion CARDIOVASCULAR: Denies chest pain, palpitations, or edema. RESPIRATORY: Denies cough or dyspnea. GASTROINTESTINAL: Denies abdominal pain, nausea, vomiting, or diarrhea. SKIN: Denies rash, itching, or wounds. MUSCULOSKELETAL per HPI NEUROLOGIC: Denies headache, numbness, tingling, or weakness. All systems reviewed & are unremarkable except as noted in HPI and below PMFSH Past Medical History Medical History Alcoholic fatty liver Alcoholism Hepatitis, alcoholic, acute Histiocytosis Hypomagnesemia Leukemia Surgical History Surgical History H/O gastric bypass History of hysterectomy Social History Social History Smoking status: Never smoker Alcohol intake: current Drinks per week: 10 Alcohol use details: 1 pint daily Substance use: never Gender identity (if verbalized by the patient): Female Sexual Orientation (if Verbalized by the Patient): Straight or Heterosexual Spiritual care concerns: No Comments At time of signature, I have reviewed and agree with nursing past medical, surgical, social and family history unless otherwise noted. Please see nursing chart for further information. There is no relevant family history pertinent to the presenting complaint Exam Narrative: GENERAL: Well-appearing HEAD: Normocephalic, atraumatic. EYES: PERRLA, conjunctivae clear NECK: Supple. CHEST: Speaks in full sentences. No respiratory distress. HEART: Regular rate and rhythm. Normal and equal peripheral pulses. EXTREMITIES: RUE has normal strength and sensation, normal range of motion at shoulder and elbow, but endorses pain with movement. Scattered bruising to the forearm. Appears to have acute bruising to the distal forearm with mild swelling. Tenderness with palpation. No open wounds or obvious deformity; pulse palpable and equal bilaterally, skin warm, dry, pink. Capillary refill less than 3 seconds. SKIN: Warm, dry, no rash. NEURO: Alert and oriented x3. PSYCH: Normal mood and affect Course Course Emergency Course: Patient is aware of diagnosis, understands and agrees to treatment plan. Anticipatory guidance given. Patient agrees to follow-up as directed and is aware of reasons to seek care at the emergency department. Portions of this record may have been created with voice recognition software Level of Care: Express Care Visit Vital Signs Vital signs: Vital Signs Temperature 98.5 F 01/13/23 14:30 Pulse Rate 71 01/13/23 14:30 Respiratory Rate 18 01/13/23 14:30 Blood Pressure 121/75 01/13/23 14:30 Pulse Oximetry 100 05
== END 2023-01-13 15:56 | disposition home or self-care (01) ==
PROVIDERS: Emergency Provider Nurse Practitioner Family
DX: M79.631 Pain in right forearm (principal); K70.0 Alcoholic fatty liver; Z85.6 Personal history of leukemia; Z98.84 Bariatric surgery status
CPT/HCPCS: 73060; 73090; 99214; G0463

== ENCOUNTER 2023-04-16 13:31 | Outpatient (CLI) | payer OTHER, SELFPAY ==
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
== END 2023-04-16 13:32 | disposition home or self-care (01) ==
DX: S20.219A Contusion of unspecified front wall of thorax, initial encounter (principal); X58.XXXA Exposure to other specified factors, initial encounter
CPT/HCPCS: 71270; Q9967

== ENCOUNTER 2023-06-11 16:31 | Emergency (ER) | payer OTHER, SELFPAY ==
[2023-06-11 16:40] VITALS: BP 130/96; PULSE 98; RESP 20; TEMP 36.6; O2SAT 99
--- NOTE | 2023-06-11 16:54 | ED.DENTAL ---
HPI - Dental/Oral General Chief complaint: Dental/Oral Stated complaint: left side tooth pain Time Seen by Provider: 06/11/23 16:55 Source: patient Mode of arrival: ambulatory Limitations: no limitations History of Present Illness HPI Narrative: 42-year-old female presents with complaint left upper dental pain with gum swelling for 2 weeks. Patient reports that she has been brushing her teeth 6 times a day to help with infection. States the year new brought she hit a abscess above her tooth and yellow pus came out. Reports that her central station operator told her to put vodka on a Q-tip and rubbing on her gums and states that this has been helping. Does not currently have a dentist due to no dental insurance. Afebrile. Patient talkative and well appearing. All systems reviewed and negative except as noted above. Related Data Home Medications Medication Instructions Recorded Confirmed dextroamphetamine-amphetamine 30 30 mg PO TID 02/16/20 06/11/23 mg tablet escitalopram oxalate 20 mg tablet 20 mg PO DAILY 06/11/23 06/11/23 Allergies Allergy/AdvReac Type Severity Reaction Status Date / Time Penicillins Allergy Intermediate Swelling Verified 06/11/23 16:34 adhesive tape Allergy Mild Rash Verified 06/11/23 16:34 ceftriaxone Allergy Mild Rash Verified 06/11/23 16:34 Review of Systems Review of Systems: CONSTITUTIONAL: Denies fever, chills, or sweats. EYES: Denies visual changes, redness, or discharge. ENT: Denies rhinorrhea, congestion, sore throat, or otalgia. Reports Left upper dental pain. CARDIOVASCULAR: Denies chest pain, palpitations, or edema. RESPIRATORY: Denies cough or dyspnea. GASTROINTESTINAL: Denies abdominal pain, nausea, vomiting, or diarrhea. GENITOURINARY: Denies dysuria or hematuria. SKIN: Denies rash or itching. MUSCULOSKELETAL: Denies back pain, joint pain, or myalgia. NEUROLOGIC: Denies headache, numbness, or weakness. PSYCHIATRIC: Denies anxiety or depression. All other systems reviewed are negative, except as documented in HPI. [facility] Past Medical History Medical History Alcoholic fatty liver Alcoholism Hepatitis, alcoholic, acute Histiocytosis Hypomagnesemia Leukemia Surgical History Surgical History H/O gastric bypass History of hysterectomy Social History Social History Smoking status: Never smoker Alcohol intake: current Drinks per week: 10 Alcohol use details: 1 pint daily Substance use: never Gender identity (if verbalized by the patient): Female Sexual Orientation (if Verbalized by the Patient): Straight or Heterosexual Spiritual care concerns: No Comments At time of signature, agree with nursing past medical, surgical, social and family history. There is no relevant family history pertinent to the presenting complaint. Exam Narrative: GENERAL: This is a well-nourished, well-developed patient, in no apparent distress. HEAD: normocephalic, atraumatic. EYES: PERRL. Sclera clear/white. Vision is grossly intact. EARS: External ears normal NOSE: External nose normal MOUTH: area of erythema and swelling to L upper gums without fluctuance. no drainage noted. no def abnormalities noted to teeth. swollen gums about teeth #12 and #13 NECK: Neck supple, non-tender without lymphadenopathy, masses or thyromegaly. CARDIOVASCULAR: Regular rate and rhythm without murmurs, gallops, or rubs. RESPIRATORY: Clear to auscultation. Breath sounds equal bilaterally. No wheezes, rales, or rhonchi. SKIN: warm, Dry, intact with no suspicious lesions or rash, good texture and turgor. NEURO: awake, alert, and oriented to person, place and time. There were no obvious focal neurologic abnormalities. EXTREMITIES: No joint tenderness, effusion, or edema noted. Course Course Level of Care: [facility] Care Visit
== END 2023-06-11 16:56 | disposition home or self-care (01) ==
PROVIDERS: Emergency Provider Nurse Practitioner Family
DX: K04.7 Periapical abscess without sinus (principal); K70.0 Alcoholic fatty liver; C95.90 Leukemia, unspecified not having achieved remission; Z98.84 Bariatric surgery status; F10.90 Alcohol use, unspecified, uncomplicated
CPT/HCPCS: 99213; G0463

== ENCOUNTER 2023-12-16 16:29 | Emergency (ER) | payer OTHER, SELFPAY ==
--- NOTE | ~2023-12-16 | XR_ITS ---
EXAMINATION: XR forearm LT 2V DATE: 12/16/2023 16:53 INDICATION: Left forearm laceration. TECHNIQUE: 2 views of left forearm were obtained. COMPARISON: None. FINDINGS: Bone alignment is normal. No fracture. Joint spaces are normal. No elbow joint effusion. No radiopaque foreign body. There is a laceration of the distal forearm. IMPRESSION: 1. No fracture or radiopaque foreign body. Reviewed, dictated and finalized at location E.
[2023-12-16 16:33] VITALS: BP 141/89; PULSE 100; RESP 18; TEMP 36.8; O2SAT 95
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
== END 2023-12-16 17:45 | disposition home or self-care (01) ==
LOC: ANHED 17:43
PROVIDERS: Emergency Provider Nurse Practitioner Family
DX: S51.852A Open bite of left forearm, initial encounter (principal); Z98.84 Bariatric surgery status; Z85.6 Personal history of leukemia; Z90.710 Acquired absence of both cervix and uterus; W54.0XXA Bitten by dog, initial encounter
CPT/HCPCS: 12002; 73090; 99283

== ENCOUNTER 2024-07-07 19:12 | Emergency (ER) | payer OTHER, SELFPAY ==
--- NOTE | ~2024-07-07 | CT_ITS ---
EXAMINATION: CT brain wo con DATE: 07/07/2024 19:46 INDICATION: Head injury. TECHNIQUE: Computed tomography (CT) of the head was performed without intravenous contrast. The mA wa s adjusted according to patient size. Iterative reconstruction technique was employed. The dose-lengt h product was 681.00 mGy-cm. COMPARISON: Head CT 01/18/2020 FINDINGS: There is no intracranial hemorrhage, acute infarction, or abnormal intracranial mass lesion . The ventricles are normal in size. There is mild mucosal thickening in the sinuses. The mastoid air cells are normal. The orbits are normal. There is frontal scalp soft tissue swelling with laceration . IMPRESSION: 1. Normal brain. Reviewed, dictated and finalized at location A. MECHANIC APPRENTICE IMPRESSION: 1. Normal brain.
--- NOTE | ~2024-07-07 | CT_ITS ---
EXAMINATION: CT facial & cervical spine wo DATE: 07/07/2024 19:46 INDICATION: Head injury. TECHNIQUE: Computed tomography (CT) of the maxillofacial region and cervical spine was performed with out intravenous contrast. Automated exposure control and iterative reconstruction technique were empl oyed. The dose-length product was 331.80 mGy-cm. COMPARISON: CT 01/18/2020 FINDINGS: MAXILLOFACIAL CT: There is mild mucosal thickening in left maxillary sinus. There are carious lesions of 2 left maxilla ry molars. No fracture. There is a frontal scalp laceration. The orbits are normal. CERVICAL SPINE CT: There is mild kyphosis of cervical spine. Vertebral body heights are normal. There is mildly decrease d disc height at C4-C5, C5-C6, C6-C7. At C7-T1, there is moderate right and mild left facet joint ost eoarthritis. No neural foraminal stenosis. There is mild central canal stenosis at C3-C4, C4-C5, and C5-C6. IMPRESSION: 1. No fracture. 2. Mild cervical spondylosis. Reviewed, dictated and finalized at location A. COMPLIANCE MANAGER
[2024-07-07 19:13] VITALS: BP 173/115; PULSE 74; RESP 18; TEMP 36.4; O2SAT 100
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
--- NOTE | 2024-07-07 20:35 | PC.NURSE ---
Pt ambulatory out of emergency department yelling get some more fucking doctors in this hospital, this is fucking ridiculous I am bleeding from my head! This RN asked pt why she was upset and pt reported They wont give me any Tylenol. I came here from another hospital and nobody cares. I have been waiting in a room for 40 minutes. I am reporting this hospital you all fucking suck. No bleeding noted from pt head at this time. This RN apologized for her wait and educated pt we are always open if she would like to come back to be reevaluated. RNElvie notified of pt leaving facility.
== END 2024-07-07 20:45 | disposition left against medical advice (07) ==
PROVIDERS: Emergency Provider Emergency Medicine
DX: S01.81XA Laceration without foreign body of other part of head, initial encounter (principal); S01.511A Laceration without foreign body of lip, initial encounter; S05.11XA Contusion of eyeball and orbital tissues, right eye, initial encounter; Z98.84 Bariatric surgery status; Z85.6 Personal history of leukemia; Z90.710 Acquired absence of both cervix and uterus; M47.812 Spondylosis without myelopathy or radiculopathy, cervical region; Y04.2XXA Assault by strike against or bumped into by another person, initial encounter
CPT/HCPCS: 70450; 70486; 72125; 99284

== ENCOUNTER 2024-09-28 22:38 | Emergency (ER) | payer OTHER, SELFPAY ==
--- NOTE | ~2024-09-28 | XR_ITS ---
EXAMINATION: XR hand LT min 3V DATE: 09/29/2024 01:21 INDICATION: Left hand dislocation status post reduction. TECHNIQUE: 3 views of left hand were obtained. COMPARISON: Left hand radiographs at 11:49 PM FINDINGS: There is palmar dislocation of third proximal phalanx with respect to the metacarpal. No fr acture. Other joint spaces are normal. IMPRESSION: 1. Persistent dislocation of third metacarpophalangeal joint. Reviewed, dictated and finalized at location A. AL MARKETING COORDINATOR
--- NOTE | ~2024-09-28 | XR_ITS ---
EXAMINATION: XR hand LT min 3V DATE: 09/29/2024 00:07 INDICATION: Left hand fractures. TECHNIQUE: 4 views of left hand were obtained. COMPARISON: Left wrist radiographs 02/10/21 FINDINGS: There is dorsal dislocation of the second and fourth middle phalanges respect to the proxim al phalanges. There is palmar dislocation of third proximal phalanx with respect to the metacarpal. N o fracture. Joint spaces are normal. There are punctate radiopaque foreign bodies overlying the hand, at least many of which are at the skin. IMPRESSION: 1. Dislocation of second and fourth proximal interphalangeal joints and third metacarpophalangeal bunny nt. Reviewed, dictated and finalized at location A. GY TRADER IMPRESSION: 1. Dislocation of second and fourth proximal interphalangeal joints and third m etacarpophalangeal joint.
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
--- NOTE | ~2024-09-28 | XR_ITS ---
EXAMINATION: XR hand LT min 3V DATE: 09/29/2024 01:22 INDICATION: Left hand third metacarpophalangeal joint dislocation status post reduction. TECHNIQUE: 3 views of left hand were obtained. COMPARISON: Left hand radiographs at 11:49 PM FINDINGS: Alignment is normal. No fracture. Joint spaces are normal. IMPRESSION: 1. Normal alignment. Reviewed, dictated and finalized at location A. R CONTRACT ANALYST IMPRESSION: 1. Normal alignment.
--- NOTE | ~2024-09-28 | XR_ITS ---
EXAMINATION: XR pelvis 1-2V DATE: 09/29/2024 00:07 INDICATION: Pelvis injury. TECHNIQUE: An anteroposterior view of the pelvis was obtained on 2 radiographs. COMPARISON: None. FINDINGS: Alignment is normal. No fracture. There is mild osteoarthritis of the hips. IMPRESSION: 1. Mild osteoarthritis of the hips. Reviewed, dictated and finalized at location A. DRY HOUSEKEEPING AIDE
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
[2024-09-28 22:36] VITALS: BP 133/93; PULSE 106; RESP 15; TEMP 37.1; O2SAT 98
[2024-09-28] MEDS: fentaNYL CITRATE INJ (*CRX) 100 MCG/2 ML VIAL IV PUSH ×2 (23:12→23:49)
[2024-09-28 23:27] VITALS: RESP 18
[2024-09-28 23:41] LABS: Basophils Percent Auto 0.7 % (0.2-1.2); Eosinophils Absolute Auto 0.1 K/mm3 (0-0.3); Eosinophils Percent Auto 2.7 % (0-4.4); Hematocrit 39.3 % (37.0-47.0); Hemoglobin 12.8 g/dL (12.0-15.0); Immature Platelet Fraction Pct 2.1 % (0.9-11.2); Lymphocytes Absolute Auto 0.96 K/mm3 (0.9-3.2); Lymphocytes Percent Auto 32.5 % (18.3-44.2); Mean Corpuscular HGB Conc 32.6 g/dl (32-36); Mean Corpuscular Hemoglobin 28.8 pg (26-34); Mean Corpuscular Volume 88.5 fl (80-100); Mean Platelet Volume 8.8 fl (7.4-10.4); Monocytes Absolute Auto 0.3 K/mm3 (0.1-0.6); Monocytes Percent Auto 9.2 % (2.6-8.5); Neutrophils Absolute Auto 1.6 K/mm3 (1.3-6.7); Neutrophils Percent Auto 54.9 % (45.5-73.1); Platelet Count Result 120 k/mm3 (150-375); Red Blood Count 4.44 M/mm3 (4.2-5.4); Red Cell Distribution Width 15.7 % (11.5-14.5)
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
--- OUTSIDE RECORDS SUMMARY | 2024-09-28 23:44 | XMS_ITS | Data Portability ---
Author Organization [facility] [place] , [facility] Address [address] [place] [address] Assessment No assessment recorded. Plan of Treatment Reminders Order Date Submit Date Provider Last Modified By Organization Details Last Modified Time Details Appointments None recorded. Lab vitamin D, 25-hydroxy, total, serum 2023 024 [employer] [facility], [address] , [place], [address], 4 11:26:13 vitamin B12, serum 2023 024 [employer] [facility], [address], [place], [address], 4 11:26:13 CBC w/ auto diff 2021 022 [employer] [facility], [address] [place], [address], 2 10:20:41 CMP, serum or plasma 2021 022 [employer] [facility], [address] [place], [address], 2 10:20:41 Referral None recorded. Procedures None recorded. Surgeries None recorded. Imaging None recorded. Medication Orders dextroamphe tamine-amph etamine 30 mg tablet 2023 024 [facility], [address], [place], [address], 4 17:52:01 oxybutynin chloride ER 5 mg tablet,exte nded release [address] [facility] [place] [address] In [facility], [address] [place] [address], [address], 4 17:49:39 Macrobid 100 mg capsule [address] [facility] ([place] [place] [address], [address], 4 17:49:40 Valtrex 500 mg tablet 2021 [id number] [address] [place], [address], 2 17:39:23 Valtrex 1 gram tablet 2021 [facility], [address] [place], [address], 2 17:39:23 Estrace 0.01% (0.1 mg/gram) vaginal cream 2021 [id number], [address] [place], [address], 2 17:37:33 dextroamphe tamine-amph etamine 30 mg tablet 2021 [id number], [address] [place], [address], 2 17:30:11 Patient TargetsNo targets recorded. Patient InstructionsNo instructions recorded. Reason for Referral None Reported. Results Created Date Observation Date Name Description Value Unit Range Abnormal Flag Note LastModifiedBy Organization Detail LastModifiedTime 08/13/20 22 08/13/2022 CBC (INCL UDES DIFF/ PLT) CBC (includes diff/plt) Cancel ling lab order - no specim en receiv ed into [facility] from 06/30 requis ition Not Available [facility] [address] [place], [address], 08/13/2022 14:43:21 08/13/20 22 08/13/2022 COMPR EHENS RADHA METAB OLIC PANEL comprehensiv e metabolic panel Cancel ling lab order - no specim en receiv ed into [facility] from 06/30 requis ition Not Available [facility] [address] [place], [address], 08/13/2022 14:43:23 10/29/19 23 10/29/2022 COMPR EHENS RADHA METAB OLIC PANEL glucose 85 mg/dL 65-99 normal Fasti ng refer ence inter nova Not Available [address], [address], 10/29/2022 13:46:30 10/29/19 23 10/29/2022 COMPR EHENS RADHA METAB OLIC PANEL urea nitrogen (BUN) 21 mg/dL 7-25 normal Not Available [address], [address], 10/29/2022 13:46:30 10/29/19 23 10/29/2022 COMPR EHENS RADHA METAB OLIC PANEL creatinine 0.64 mg/dL 0.50-0 .97 normal Not Available [address], [address], 10/29/2022 13:46:30 10/29/19 23 10/29/2022 COMPR EHENS RADHA METAB OLIC PANEL eGFR 115 mL/mi n/1.7 3m2 > or = 60 normal The eGFR is based on the CKD-E PI 2020 equat ion. To calcu late the new eGFR from a previ ous Creat inine or Cysta kostas C resul t, go to [email or web address] :[email or web address] resendez [email or web address] kdoqi /[email or web address] 5Fcal culat or Not Available [address] [address] [place], [address], 10/29/2022 13:46:30 10/29/19 23 10/29/2022 COMPR EHENS RADHA METAB OLIC PANEL BUN/creatini ne ratio NOT APPLIC ABLE (calc ) 6-22 Not Available [address], [address], 10/29/2022 13:46:30 10/29/19 23 10/29/2022 COMPR EHENS RADHA METAB OLIC PANEL sodium 135 mmol/ L 135-14 6 normal Not Available [address], [address], 10/29/2022 13:46:30 10/29/19 23 10/29/2022 COMPR EHENS RADHA METAB OLIC PANEL potassium 3.8 mmol/ L 3.5-5. 3 normal Not Available [address], [address], 10/29/2022 13:46:30 10/29/19 23 10/29/2022 COMPR EHENS RADHA METAB OLIC PANEL chloride 100 mmol/ L 98-110 normal Not Available [address], [address], 10/29/2022 13:46:30 10/29/19 23 10/29/2022 COMPR EHENS RADHA METAB OLIC PANEL carbon dioxide 29 mmol/ L 20-32 normal Not Available [address], [address], 10/29/2022 13:46:30 10/29/19 23 10/29/2022 COMPR EHENS RADHA METAB OLIC PANEL calcium 9.1 mg/dL 8.6-10 .2 normal Not Available [address], [address], 10/29/2022 13:46:30 10/29/19 23 10/29/2022 COMPR EHENS RADHA METAB OLIC PANEL protein, total 6.4 g/dL 6.1-8. 1 normal Not Available [address] [address] [place], [address], 10/29/2022 13:46:30 10/29/19 23 10/29/2022 COMPR EHENS RADHA METAB OLIC PANEL albumin 4.1 g/dL 3.6-5. 1 normal Not Available [address], [address], 10/29/2022 13:46:30 10/29/19 23 10/29/2022 COMPR EHENS RADHA METAB OLIC PANEL globulin 2.3 g/dL_ (calc ) 1.9-3. 7 normal Not Available [address], [address], 10/29/2022 13:46:30 10/29/19 23 10/29/2022 COMPR EHENS RADHA METAB OLIC PANEL albumin/glob ulin ratio 1.8 (calc ) 1.0-2. 5 normal Not Available [address] [address] [place], [address], 10/29/2022 13:46:30 10/29/19 23 10/29/2022 COMPR EHENS RADHA METAB OLIC PANEL bilirubin, total 0.3 mg/dL 0.2-1. 2 normal Not Available [address], [address], 10/29/2022 13:46:30 10/29/19 23 10/29/2022 COMPR EHENS RADHA METAB OLIC PANEL alkaline phosphatase 47 U/L 31-125 normal Not Available [address] [address] [place], [address], 10/29/2022 13:46:30 10/29/19 23 10/29/2022 COMPR EHENS RADHA METAB OLIC PANEL AST 30 U/L 10-30 normal Not Available [address] [address] [place], [address], 10/29/2022 13:46:30 10/29/19 23 10/29/2022 COMPR EHENS RADHA METAB OLIC PANEL ALT 22 U/L 6-29 normal Not Available [address], [address], 10/29/2022 13:46:30 10/29/19 23 10/29/2022 CBC (INCL UDES DIFF/ PLT) white blood cell count 6.4 thous and/u L 3.8-10 .8 normal Not Available [address], [address], 10/29/2022 13:46:31 10/29/19 23 10/29/2022 CBC (INCL UDES DIFF/ PLT) red blood cell count 3.83 kaiser on/uL 3.80-5 .10 normal Not Available [address], [address], 10/29/2022 13:46:31 10/29/19 23 10/29/2022 CBC (INCL UDES DIFF/ PLT) hemoglobin 11.3 g/dL 11.7-1 5.5 low Not Available [address], [address], 10/29/2022 13:46:31 10/29/19 23 10/29/2022 CBC (INCL UDES DIFF/ PLT) hematocrit 33.3 % 35.0-4 5.0 low Not Available [address], [address], 10/29/2022 13:46:31 10/29/19 23 10/29/2022 CBC (INCL UDES DIFF/ PLT) MCV 86.9 fL 80.0-1 00.0 normal Not Available [address], [address], 10/29/2022 13:46:31 10/29/19 23 10/29/2022 CBC (INCL UDES DIFF/ PLT) MCH 29.5 pg 27.0-3 3.0 normal Not Available [address], [address], 10/29/2022 13:46:31 10/29/19 23 10/29/2022 CBC (INCL UDES DIFF/ PLT) MCHC 33.9 g/dL 32.0-3 6.0 normal Not Available [address], [address], 10/29/2022 13:46:31 10/29/19 23 10/29/2022 CBC (INCL UDES DIFF/ PLT) RDW 11.8 % 11.0-1 5.0 normal Not Available [address], [address], 10/29/2022 13:46:31 10/29/19 23 10/29/2022 CBC (INCL UDES DIFF/ PLT) platelet count 265 thous and/u L 140-40 0 normal Not Available [address], [address], 10/29/2022 13:46:31 10/29/19 23 10/29/2022 CBC (INCL UDES DIFF/ PLT) MPV 10.8 fL 7.5-12 .5 normal Not Available [address], [address], 10/29/2022 13:46:31 10/29/19 23 10/29/2022 CBC (INCL UDES DIFF/ PLT) absolute neutrophils 4365 cells /uL 1500-7 800 normal Not Available [address], [address], 10/29/2022 13:46:31 10/29/19 23 10/29/2022 CBC (INCL UDES DIFF/ PLT) absolute lymphocytes 1344 cells /uL 850-39 00 normal Not Available [address], [address], 10/29/2022 13:46:31 10/29/19 23 10/29/2022 CBC (INCL UDES DIFF/ PLT) absolute monocytes 480 cells /uL 200-95 0 normal Not Available [address], [address], 10/29/2022 13:46:31 10/29/19 23 10/29/2022 CBC (INCL UDES DIFF/ PLT) absolute eosinophils 192 cells /uL 15-500 normal Not Available [address], [address], 10/29/2022 13:46:31 10/29/19 23 10/29/2022 CBC (INCL UDES DIFF/ PLT) absolute basophils 19 cells /uL 0-200 normal Not Available [facility] [address], [address], 10/29/2022 13:46:31 10/29/19 23 10/29/2022 CBC (INCL UDES DIFF/ PLT) neutrophils 68.2 % normal Not Available [facility] [address], [address], 10/29/2022 13:46:31 10/29/19 23 10/29/2022 CBC (INCL UDES DIFF/ PLT) lymphocytes 21.0 % normal Not Available [facility] [address], [address], 10/29/2022 13:46:31 10/29/19 23 10/29/2022 CBC (INCL UDES DIFF/ PLT) monocytes 7.5 % normal Not Available [facility] [address], [address], 10/29/2022 13:46:31 10/29/19 23 10/29/2022 CBC (INCL UDES DIFF/ PLT) eosinophils 3.0 % normal Not Available [facility] [address], [address], 10/29/2022 13:46:31 10/29/19 23 10/29/2022 CBC (INCL UDES DIFF/ PLT) basophils 0.3 % normal Not Available [employer] [address] [place], [address], 10/29/2022 13:46:31 Result Notes None recorded. Problems Name Problem SNOMED Code Status Onset Date Resolution Date Notes Provider Name and Address Organization Details Recorded Time Vitamin deficien cy Active 2015 Deficien cy of other specifie d B group vitamins ; Progress : Stable Added By: Chad Valencia Add to Current Problems : YES ProblemS tatus: Current Not Available [facility] 2 20:28:10 Sampling of vagina for Papanico laou smear Active 2019 Encounte r for gynecolo gical examinat ion (general ) (routine ) without abnormal findings ; Progress : Stable Added By: Maureen Ayala Add to Current Problems : YES ProblemS tatus: Current Not Available [facility] 2 20:28:04 Moderate major depressi on, single episode 25527834 Active 2016 Major depressi ve disorder , single episode, moderate ; Progress : Stable Added By: Chad Valencia Add to Current Problems : YES ProblemS tatus: Current Not Available [facility] 2 20:28:06 Blood in urine 34917828 Active 2016 Hematuri a; Location : None Progress : Stable Added By: Paige Obregon Add to Current Problems : NO ProblemS tatus: Current; Start Date : 01/26/20 15 Hemat uria; Progress : Stable Added By: Paige Obregon Add to Current Problems : NO ProblemS tatus: Resolve; Start Date : 01/26/20 15 Gross hematuri a; Location : None Progress : Stable Added By: Chad Valencia Add to Current Problems : YES ProblemS tatus: Current Not Available [facility] 2 20:28:09 Alopecia 32781814 Active 2020 Nonscarr ing hair loss, unspecif ied; Progress : Stable Added By: Chad Valencia Add to Current Problems : YES ProblemS tatus: Current Not Available [facility] 2 20:28:07 Finding of pattern of menstrua l cycle 478197726 Completed 201403/06/2016 Excessiv e and frequent menstrua tion with irregula r cycle; Progress : Stable Added By: Rebeca Man Add to Current Problems : NO ProblemS tatus: Resolve Menorrha lokesh; Location : None Progress : Stable Added By: Rebeca Man Add to Current Problems : YES ProblemS tatus: Resolve Not Available [facility] 2 20:28:[address] Concept Active 2015 Encounte r for follow-u p examinat ion after complete d treatmen t for conditio ns other than malignan t neoplasm ; Progress : Stable Added By: Sarah Beck Add to Current Problems : YES ProblemS tatus: Current Not Available [facility] 2 20:28:07 Genuine stress incontin ence 04172585 Active 2018 Stress incontin ence (female) (male); Progress : Stable Added By: Chad Valencia Add to Current Problems : YES ProblemS tatus: Current Not Available [facility] 2 20:28:03 Irregula r periods 64242149 Completed 201609/04/2017 Abnormal vaginal bleeding ; Location : None Progress : Stable Added By: Chad Valencia Add to Current Problems : NO ProblemS tatus: Resolve Not Available [facility] 2 20:28:09 Pain in female genitali a Completed 201505/11/2016 Dysmenor terrell, unspecif ied; Progress : Stable Added By: Chad Valencia Add to Current Problems : NO ProblemS tatus: Resolve Not Available [facility] 2 20:28:06 Anemia during pregnanc y - baby not yet delivere d [id number] Completed 201410/31/2018 Anemia complica ting pregnanc y; Progress : Stable Added By: Paige Obregon Add to Current Problems : NO ProblemS tatus: Resolve Not Available [facility] 2 20:28:08 Pelvic and perineal pain 595922337 Completed 201507/19/2016 Pelvic and perineal pain; Progress : Stable Added By: Chad Valencai Add to Current Problems : NO ProblemS tatus: Resolve Pelvic pain, female; Location : None Progress : Stable Added By: Chad Valencia Add to Current Problems : YES ProblemS tatus: Resolve Not Available [facility] 2 20:28:05 Finding of menstrua l bleeding Completed 201409/04/2017 Excessiv e and frequent menstrua tion with regular cycle; Progress : Stable Added By: Chad Valencia Add to Current Problems : NO ProblemS tatus: Resolve Not Available [facility] 2 20:28:[address] Concept Completed 201505/10/2016 Encounte r for surveill ance of other contrace ptives; Progress : Stable Added By: Kary Odom Add to Current Problems : NO ProblemS tatus: Resolve Not Available [facility] 2 20:28:11 Menometr orrhagia 056120278 Active 2014 Menometr orrhagia ; Location : None Severity : Moderate Progress : Stable Added By: Kary Odom Add to Current Problems : YES ProblemS tatus: Current Menometr orrhagia ; Severity : Moderate Progress : Stable Added By: Chad Valencia Add to Current Problems : NO ProblemS tatus: Resolve Not Available [facility] 1 10:46:25 Attentio n deficit hyperact ivity disorder , 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 3022331 Active 2018 Attentio n-defici t hyperact ivity disorder , predomin antly hyperact radha type; Progress : Stable Added By: Chad Valencia Add to Current Problems : YES ProblemS tatus: Current Not Available [facility] 2 20:28:07 Mild major depressi on, single episode 55535498 Active 2015 Depressi on; Location : None Progress : Stable Added By: Chad Valencia Add to Current Problems : NO ProblemS tatus: Current Major depressi ve disorder , single episode, mild; Progress : Stable Added By: Chad Valencia Add to Current Problems : YES ProblemS tatus: Current Not Available [facility] 2 20:28:04 Attentio n deficit hyperact ivity disorder 657415617 Completed 201710/31/2018 ADHD; Location : None Progress : Stable Added By: Cynthia Ayala Add to Current Problems : NO ProblemS tatus: Current ADHD; Progress : Stable Added By: Cynthia Ayala Add to Current Problems : NO ProblemS tatus: Resolve Not Available [facility] 2 20:28:08 Vitamin B deficien cy 68574896 Completed 201510/31/2018 Vitamin B12 deficien cy; Location : None Progress : Stable Added By: Lou Mac Add to Current Problems : YES ProblemS tatus: Current Vitamin B12 deficien cy; Progress : Stable Added By: Reinheim er Lou Add to Current Problems : NO ProblemS tatus: Resolve Not Available [facility] 2 20:28:09 Dystroph y of vulva 74289721 Completed 201510/31/2018 Other dystroph y of vulva; Progress : Stable Added By: Chad Valencia Add to Current Problems : NO ProblemS tatus: Resolve Not Available [facility] 2 20:28:10 Adjustme nt disorder with mixed anxiety and depresse d mood 811169340 Completed 201510/21/2015 Adjustme nt disorder with mixed anxiety and depresse d mood; Progress : Stable Added By: Chad Valencia Add to Current Problems : NO ProblemS tatus: Resolve Not Available [facility] 2 20:28:07 Uses contrace ption 83573167 Completed 201505/10/2016 Contrace ptive maintena nce; Severity : Moderate Progress : Stable Added By: Kary Odom Add to Current Problems : NO ProblemS tatus: Resolve Not Available [facility] 1 10:46:26 Surgical follow-u p - normal 026872250 Completed 201510/31/2018 Follow-u p exam followin g surgery; Location : None Severity : Moderate Progress : Stable Added By: Sarah Beck Add to Current Problems : YES ProblemS tatus: Current Follow-u p exam followin g surgery; Severity : Moderate Progress : Stable Added By: Sarah Beck Add to Current Problems : NO ProblemS tatus: Resolve Not Available [facility] 1 10:46:26 Uses combined oral contrace ption 599354573 Completed 201403/06/2016 Encounte r for surveill ance of contrace ptive pills; Progress : Stable Added By: Rebeca Man Add to Current Problems : NO ProblemS tatus: Resolve Not Available [facility] 2 20:28:04 Malaise and fatigue 541960560 Completed 201410/31/2018 Malaise and Fatigue; Progress : Stable Added By: Rebeca Man Add to Current Problems : NO ProblemS tatus: Resolve Malaise and Fatigue; Location : None Progress : Stable Added By: Rebeca Man Add to Current Problems : YES ProblemS tatus: Current Not Available [facility] 2 20:28:06 Leukopla moe of vulva 774246151 Active 2015 Leukopla moe of vulva; Progress : Stable Added By: Chad Valencia Add to Current Problems : YES ProblemS tatus: Current Other dystroph y of vulva; Location : None Progress : Stable Added By: Chad Valencia Add to Current Problems : NO ProblemS tatus: Current Not Available [facility] 2 20:28:05 Female genital organ symptoms 257901332 Completed 201507/19/2016 Pelvic pain, female; Severity : Moderate Progress : Stable Added By: Chad Valencia Add to Current Problems : NO ProblemS tatus: Resolve pelvic pain; Location : None Added By: Arlyn Elias Add to Current Problems : NO ProblemS tatus: Current; Start Date : 10/10/19 15 Not Available [facility] 1 10:46:27 Dysmenor terrell 053920336 Completed 201505/11/2016 Dysmenor terrell; Progress : Stable Added By: Chad Valencia Add to Current Problems : NO ProblemS tatus: Resolve Not Available [facility] 2 20:28:03 Menopaus e present 442341663 Active 2016 Menopaus al and female climacte zenaida states; Severity : Moderate Progress : Stable Added By: Maureen Ayala Add to Current Problems : YES ProblemS tatus: Current Menopaus e; Location : None Severity : Moderate Progress : Stable Added By: Chad Valencia Add to Current Problems : YES ProblemS tatus: Resolve Not Available [facility] 1 10:46:27 Uterine size for dates discrepa ncy 338649239 Completed 201410/31/2018 Uterine size date discrepa ncy, antepart um conditio n or complica tion; Progress : Stable Added By: Britney Hamilton Add to Current Problems : NO ProblemS tatus: Resolve Not Available [facility] 2 20:28:05 Dysfunct ional uterine bleeding Completed 201510/21/2015 DUB; Location : None Progress : Stable Added By: Chad Valencia Add to Current Problems : NO ProblemS tatus: Resolve Not Available [facility] 2 20:28:08 David hematuri a 340094196 Completed 201610/31/2018 Gross hematuri a; Progress : Stable Added By: Chad Valencia Add to Current Problems : NO ProblemS tatus: Resolve Not Available [facility] 2 20:28:05 Depressi ve disorder 43254950 Active 2016 Depressi on; Progress : Stable Added By: Chad Valencia Add to Current Problems : NO ProblemS tatus: Resolve Depressi on; Location : None Progress : Stable Added By: Chad Valencia Add to Current Problems : YES ProblemS tatus: Current Not Available [facility] 2 20:28:08 Single major depressi ve episode Completed 201510/31/2018 Depressi on; Severity : Moderate Progress : Stable Added By: Chad Valencia Add to Current Problems : NO ProblemS tatus: Resolve Not Available [facility] 1 10:46:28 Mixed urinary incontin ence 366093351 Active 2019 Mixed incontin ence; Progress : Stable Added By: Chad Valencia Add to Current Problems : YES ProblemS tatus: Current Not Available [facility] 2 20:28:09 Chronic fatigue syndrome 94995031 Active 2014 Chronic fatigue, unspecif ied; Progress : Stable Added By: Rebeca Man Add to Current Problems : YES ProblemS tatus: Current Not Available [facility] 2 20:28:10 Adjustme nt disorder with depresse d mood 82861818 Completed 201510/21/2015 Situatio nal depressi ve reaction ; Progress : Stable Added By: Chad Valencia Add to Current Problems : NO ProblemS tatus: Resolve Not Available [facility] 2 20:28:10 Premenst rual tension syndrome 74165819 Active 2018 Premenst rual tension syndrome ; Progress : Stable Added By: Chad Valencia Add to Current Problems : YES ProblemS tatus: Current Not Available [facility] 2 20:28:04 Postpart um care Completed 201401/10/2016 Visit for routine postpart um follow-u p; Location : None Progress : Stable Added By: Fany Jackson Add to Current Problems : YES ProblemS tatus: Resolve Not Available [facility] 2 20:28:03 Female genital organ symptoms 357072879 Active 2014 pelvic pain; Location : None Added By: Arlyn Elias Add to Current Problems : NO ProblemS tatus: Current Not Available [facility] 2 20:28:03 Menometr orrhagia 476463627 Completed 201505/11/2016 Menometr orrhagia ; Location : None Progress : Stable Added By: Chad Valencia Add to Current Problems : NO ProblemS tatus: Resolve Menometr orrhagia ; Location : None Progress : Stable Added By: Kary Odom Add to Current Problems : YES ProblemS tatus: Current; Start Date : 07/25/20 15 Not Available [facility] 2 20:28:04 Menopaus al symptom 51595197 Completed 201603/02/2017 Menopaus e; Progress : Stable Added By: Chad Valencia Add to Current Problems : NO ProblemS tatus: Resolve Not Available [facility] 2 20:28:08 Postoper ative follow-u p visit Active 2015 Follow-u p exam followin g surgery; Location : None Progress : Stable Added By: Sarah Beck Add to Current Problems : YES ProblemS tatus: Current Not Available [facility] 2 20:28:09 Notes:Contraceptive maintena nce (V25.40) ; OnsetDate: 03/11/2016; ResolvedDate: 05/10/2016; Progress: Stable Added By: Kary Tierney Add to Current Problems: NO ProblemStatus: Resolve Follow-up exam following surgery (V67.09) ; OnsetDate: 08/22/2015; ResolvedDate: 10/31/2018; Progress: Stable Added By: Sarah Beck Add to Current Problems: NO ProblemStatus: Resolve Visit for insertion of subdermal contraceptive (Nexplanon) (V25.5) ; OnsetDate: 06/05/2015; ResolvedDate: 03/06/2016; Progress: Stable Added By: Rebeca Man Add to Current Problems: NO ProblemStatus: Resolve (V22.1) ; OnsetDate: 08/22/2014; ResolvedDate: 10/31/2018; Progress: Stable Added By: Paige Obregon Add to Current Problems: NO ProblemStatus: Resolve Problem Notes None recorded. Procedures Surgical History Date Name Laterality Status Provider Name and Address Organization Details Recorded Time 09/16/19 16 Date of Last Pap Smear completed [facility] IV 06/22/2022 14:24:45 hysterectomy completed [facility] IV 06/22/2022 14:25:07 excision of bilateral fallopian tubes and ovaries completed [facility] 06/22/2022 14:25:59 Gastric bypass for obesity completed [facility] IV 06/22/2022 14:26:10 cholecystectomy completed [facility] IV 06/22/2022 14:26:23 Dilation and curettage completed [facility] IV 06/22/2022 14:26:33 excision of lymph node completed [facility] 06/22/2022 14:26:47 Imaging Results None recorded. Procedure Notes None recorded. Medical Equipment None Reported. Allergies Allergen ID Allergen Name Allergen Category Reaction Reaction Severity Criticality Documentation Date Start Date Code Code System Note Provider Name and Address Organization Details Recorded Time 777696 Paper Tape medicatio n Not available Not available Not available 06/06/20212014 91597 UNK Sever ity: Moder ate; Not Available Not Available Not Available 609006 Rocephin medicatio n Not available Not available Not available 06/06/20212014 9449 RxNorm Sever ity: Moder ate; Not Available Not Available Not Available [id number] Product containin g penicilli n and antibioti c (product) medicatio n Not available Not available Not available 06/06/20212014 96462 05 SNOMED Sever ity: Moder ate; Not Available Not Available Not Available Medications Name Sig Start Date Stop Date Status Note LastModified by Organization Details LastModified Time cyclobenz aprine 10 mg tablet TAKE 1 TABLET BY MOUTH AT BEDTIME NEEDED active Not Available Not Available No t Available Adderall 20 mg tablet take 1 tablet po tid 09/29 completed Adderall 20 mg oral tablet RxNorm: 586448 Allow Substitu tion: True Refill Denied: No Edited by: Chad Billings) on 09/29/19 Stopped by: Chad Billings) on 09/29/19 Not Available Not Available Not Available doxycycli ne hyclate 100 mg capsule TAKE 1 CAPSULE BY MOUTH TWICE A DAY FOR 7 DAYS active Not Available Not Available No t Available clindamyc in HCl 300 mg capsule TAKE 1 CAPSULE BY MOUTH FOUR TIMES A DAY FOR 10 DAYS active Not Available Not Available No t Available citalopra m 40 mg tablet active Not Available Not Available Not Available Topamax 25 mg tablet Take 1 tablet(s ) by mouth bid 09/29 completed Topamax 25mg Tablet RxNorm: 744174 Allow Substitu tion: True Refill Denied: No Edited by: Maureen Tinsley ) on 09/29/19 Stopped by: Maureen Tinsley ) on 09/29/19 Not Available Not Available Not Available oxybutyni n chloride ER 10 mg tablet,ex tended release 24 hr one tablet at bedtime 03/30 completed Oxybutyn in Chloride 10mg Tablets, Extended Release RxNorm: 816060 Allow Substitu tion: True Refill Denied: No Not Available Not Available Not Available alprazola m 1 mg tablet TAKE 1 TABLET BY MOUTH EVERY DAY NEEDED active Not Available Not Available No t Available valacyclo vir 1 gram tablet TAKE 1 TABLET BY MOUTH TWICE A DAY FOR 2-3 DAYS NEEDED FOR COLD SORE active Not Available Not Available No t Available Loestrin Fe 09/04 (28-Day) 1 mg-20 mcg (21)/75 mg (7) tablet Take 1 tablet(s ) by mouth daily as directed . 07/25 completed Loestrin Fe 09/04 28 day 20mcg/1m g/75mg Tablet Allow Substitu tion: True Refill Denied: No Refill DateOccu rred: 06/05/20 15 Not Available Not Available Not Available naltrexon e 50 mg tablet TAKE 1 TABLET BY MOUTH EVERY DAY DIRECTED active Not Available Not Available No t Available sertralin e 100 mg tablet active Not Available Not Available Not Available Diflucan 150 mg tablet Take 1 pill by mouth day 1 and day 5 03/02 completed Diflucan 150mg Tablet RxNorm: 476876 Allow Substitu tion: True Refill Denied: No Not Available Not Available Not Available syringe with needle 3 mL 20 gauge x 1 To be used to administ er david carreonio ns 10/23 completed syringe with needle 3 mL 20 gauge x 1_ Refill Denied: No Refill Note: Refill Prescrib ed Refill DateOccu rred: 10/24/19 Edited by: alec rendon(Brii Gabriel) on 10/24/19 Stopped by: alec rendon(Brii Gabriel) on 10/24/19 21 Not Available Not Available Not Available metronida zole 500 mg tablet TAKE 1 TABLET BY MOUTH EVERY 8 HOURS FOR 7 DAYS active Not Available Not Available No t Available valacyclo vir 500 mg tablet TAKE 1 TABLET BY MOUTH EVERY DAY active Not Available Not Available No t Available Wellbutri n SR 100 mg tablet, 12 hr sustained -release Take 1 tablet(s ) by mouth bid 02/01 completed Wellbutr in SR 100mg Tablets, Sustaine d Release RxNorm: 319213 Allow Substitu tion: True Refill Denied: No Not Available Not Available Not Available Hypodermi c [place] 23 gauge x 1 231/2 INCH NEEDLE TO USE TO ADMINIST ER DAVID CARREONIO N 06/22 completed Hypoderm ic [place] 23 gauge x 1_ Allow Substitu tion: True Refill Denied: No Edited by: Rimma Ceballos) on 12/17/19 Stopped by: Rimma Ceballos) on Not Available Not Available Not Available Vitamin tablet 07/25 completed Multivit jett Allow Substitu tion: True Refill Denied: No Refill DateOccu rred: 01/04/20 15 Not Available Not Available Not Available dextroamp hetamine- amphetami ne 30 mg tablet take 1 tablet (30 mg) by oral route 2 times per day 2024 active Not Available Not Available Not Avai lable tolterodi ne 2 mg tablet take 1 tablet (2 mg) by oral route 2 times per day 06/22 completed tolterod ine 2 mg oral tablet RxNorm: 046224 Allow Substitu tion: True Refill Denied: No Edited by: Bridgett You ) on 12/19/19 Stopped by: Bridgett You ) on Not Available Not Available Not Available Celexa 20 mg tablet Take 1 tablet(s ) by mouth BID 12/10 completed Celexa 20mg Tablet RxNorm: 646873 Allow Substitu tion: True Refill Denied: No Not Available Not Available Not Available cyanocoba heather (vit B-12) 1,000 mcg/mL injection solution INJECT 1 ML INTRAMUS CULAR EVERY (2) WEEKS (NEW INSTRUCT IONS) active Not Available Not Available No t Available Prozac 20 mg capsule 1 p.o. qam 01/01 completed Prozac 20mg Capsules RxNorm: 169926 Allow Substitu tion: True Refill Denied: No Not Available Not Available Not Available promethaz ine 25 mg tablet TAKE 1 TABLET BY MOUTH EVERY 8 HOURS NEEDED active Not Available Not Available No t Available BD Luer-Dereck Syringe 3 mL 25 gauge x 1 USE DIRECTED . active Not Available Not Available No t Available fluoxetin e 10 mg capsule takes 30 mg daily 11/21 completed Fluoxeti ne 10mg Capsules RxNorm: 235637 Allow Substitu tion: True Refill Denied: No Not Available Not Available Not Available oxybutyni n chloride ER 5 mg tablet,ex tended release 24 hr Take 1 tablet every day by oral route. active Not Available Not Available No t Available gabapenti n 300 mg capsule TAKE 1 CAPSULE BY MOUTH EVERY DAY FOR 30 DAYS active Not Available Not Available No t Available lidocaine HCl 2 % mucosal solution PLEASE SEE ATTACHED FOR DETAILED DIRECTIO NS active Not Available Not Available No t Available estradiol 2 mg tablet one BID 05/09 completed Estradio l 2mg Tablet RxNorm: 779455 Allow Substitu tion: True Refill Denied: No Not Available Not Available Not Available Cleocin 2 % vaginal cream Insert 1 applicat orful(s) in vagina at bedtime for 7 days 08/14 completed Cleocin Vaginal 2% Vaginal Cream RxNorm: 587397 Allow Substitu tion: True Refill Denied: No Not Available Not Available Not Available testoster one cypionate 200 mg/mL intramusc ular oil INJECT 0.25 ML INTO THE MUSCLE EVERY 4 WEEKS active Not Available Not Available No t Available estradiol 0.01% (0.1 mg/gram) vaginal cream INSERT 1 GRAM IN VAGINA AND A PEA-SIZE D AMOUNT TO VULVA/CL ITORAL CARBALLO ONCE PER WEEK active Not Available Not Available No t Available methylpre dnisolone 4 mg tablets in a dose pack TAKE 6 TABLETS ON DAY 1 DIRECTED ON PACKAGE AND DECREASE BY 1 TAB EACH DAY FOR A TOTAL OF 6 DAYS active Not Available Not Available No t Available oxybutyni n chloride 5 mg tablet take 1 tablet (5 mg) by oral route 2 times per day 12/18 completed oxybutyn in chloride 5 mg oral tablet RxNorm: 488139 Allow Substitu tion: True Refill Denied: No Edited by: Bridgett You ) on 12/19/19 Stopped by: Bridgett You ) on 05/05/20 20 Not Available Not Available Not Available Estrace 1 mg tablet Take 1 tablet(s ) by mouth daily 12/10 completed Estrace 1mg Tablet RxNorm: 038077 Allow Substitu tion: True Refill Denied: No Not Available Not Available Not Available Adderall 10 mg tablet Take 1 tablet(s ) by mouth three times a day 01/20 completed Adderall 10mg Tablet RxNorm: 941971 Allow Substitu tion: True Refill Denied: No Not Available Not Available Not Available syringe with needle (disp) 2 mL 22 gauge To be used with testoste danial injectio ns 06/22 completed syringe with needle (disp) 2 mL 22 gauge Allow Substitu tion: True Refill Denied: No Edited by: alec rendon(Brii Gabriel) on 10/24/19 Stopped by: alec rendon(Brii Gabriel) on Not Available Not Available Not Available syringe with needle active Not Available Not Available Not Available azithromy jacob 500 mg tablet Take 2 tablets by mouth now & 2 po tomorrow . 01/11 completed Azithrom ycin 500mg Tablet Allow Substitu tion: True Refill Denied: No Not Available Not Available Not Available escitalop radha 10 mg tablet TAKE ONE TABLET DAILY ALONG WITH 20 MG TABLET active Not Available Not Available No t Available escitalop radha 20 mg tablet TAKE 1 TABLET BY MOUTH EVERY DAY active Not Available Not Available No t Available Wellbutri n XL 300 mg 24 hr tablet, extended release Take 1 tablet(s ) by mouth daily 04/15 completed Wellbutr in XL 300mg Tablets, Extended Release RxNorm: 399264 Allow Substitu tion: True Refill Denied: No Not Available Not Available Not Available nitrofura ntoin monohydra te/macroc rystals 100 mg capsule TAKE 1 CAPSULE BY MOUTH TWICE A DAY FOR 10 DAYS active Not Available Not Available No t Available solifenac in 5 mg tablet take 1 tablet (5 mg) by oral route once daily 06/22 completed solifena jacob 5 mg oral tablet RxNorm: 742937 Allow Substitu tion: True Refill Denied: No Edited by: Chad Billings) on 12/20/19 20 Stopped by: Chad Billings) on Not Available Not Available Not Available needle (disp) 231/2 inch needle to use to administ er david barrow injectio n 06/22 completed needle (disp) Allow Substitu tion: True Refill Denied: No Edited by: Chad Billings) on 12/26/19 21 Stopped by: Chad Billings) on Not Available Not Available Not Available fluoxetin e 1 x daily 12/17 completed Fluoxeti ne 40mg Capsules RxNorm: 570190 Allow Substitu tion: True Refill Denied: No Edited by: Britney Minaya ) on 12/18/19 15 Stopped by: Britney Minaya ) on 12/18/19 15 Not Available Not Available Not Available Celexa Take 1 tablet(s ) by mouth BID 12/08 completed Celexa 20mg Tablet RxNorm: 701021 Allow Substitu tion: True Refill Denied: No Edited by: Donna Roger ) on 12/09/19 16 Stopped by: Donna Roger ) on 12/09/19 16 Not Available Not Available Not Available Valtrex Take 1 tab PO daily 12/17 completed Valtrex 500mg Tablet RxNorm: 807859 Allow Substitu tion: True Refill Denied: No Not Available Not Available Not Available Adderall Take 3 tablet(s ) by mouth qam 11/15 completed Adderall 20mg Tablet RxNorm: 314225 Allow Substitu tion: True Refill Denied: No Not Available Not Available Not Available Wellbutri n XL 09/17 completed Wellbutr in XL Allow Substitu tion: True Refill Denied: No Not Available Not Available Not Available Nexplanon 10/31 completed Nexplano n RxNorm: 66216 Allow Substitu tion: True Refill Denied: No Refill DateOccu rred: 07/25/20 15 Not Available Not Available Not Available Vitamin B12 1 ML IM q 2 weeks 07/06 completed Vitamin B12 1,000mcg /1ml Injectio n RxNorm: 836338 Allow Substitu tion: True Refill Denied: No Not Available Not Available Not Available BinaxNOW COVID-19 Ag Self Test kit 06/22 completed Not Available Not Available Not Available Vitals Date Recorded Body height Body mass index (BMI) Body weight Body temperature Systolic blood pressure Diastolic blood pressure Provider Name and Address Organization Details Last Updated DateTime 2 160.02 cm 24.5 kg/m2 47125.1 8 g 98 [degF] 110 mm[Hg] 62 mm[Hg] Juli Rosario [facility] 2 17:19:18 Date Recorded Body weight Body mass index (BMI) Body height Systolic blood pressure Diastolic blood pressure Provider Name and Address Organization Details Last Updated DateTime 10/27/2023 89514.79 g 29 kg/m2 165.1 cm 118 mm[Hg] 74 mm[Hg] Pauline Fields [facility] 4 17:10:58 Social History Question Answer Notes LastModified by Organizat ion Details LastModified Time Tobacco Smoking Status Never Smoker Juli Rosario [facility], [facility] IV 06/22/2022 17:26:10 What Is Your Level Of Alcohol Consumption? None Information not available 06/22/2022 Are You Blind Or Do You Have Difficulty Seeing? No [email or web address] Information not available 06/22/2022 Are You Currently Employed? Yes [email or web address] Information not available 06/22/2022 Are You Deaf Or Do You Have Serious Difficulty Hearing? No [email or web address] Information not available 06/22/2022 What Type Of Diet Are You Following? REGULAR [email or web address] Information not available 06/22/2022 What Is Your Occupation? [employer] Mom Doing Ok And Dad Has Stage 4 Lung Cancer [email or web address] Information not available 06/22/2022 How Many Children Do You Have? 5 [email or web address] Information not available 06/22/2022 What Is Your Relationship Status? [email or web address] Information not available 06/22/2022 Are You Sexually Active? Yes [email or web address] Information not available 06/22/2022 Do You Use Any Illicit Or Recreational Drugs? No [email or web address] Information not available 06/22/2022 Do You Or Have You Ever Used Any Other Forms Of Tobacco Or Nicotine? No [email or web address] Information not available 06/22/2022 Sex: Unknown Functional Status Question Answer Note LastModified by Organizat ion Details LastModified Time What is your exercise level? Occasional Information not available 06/22/2022 Mental Status None recorded. Family History Nothing Reported. Medical History Condition Response Other Cancer N High Blood Pressure N Colon Cancer N Cytomegalovirus N Hyperthyroidism N Breast Cancer N Herpes (HSV) N MRSA N Blood Transfusion N Lung Cancer N Hypothyroidism N Depression N Incontinence N Panic Attacks N Neurological Disorder N Deep Vein Thrombosis N Anxiety Disorder N Autoimmune disease N Arthritis N Shingles N Tuberculosis/Positive PPD N Polycystic Ovarian Syndrome N Cervical Cancer N Chlamydia N Hematuria N Varicosities N Stroke N Crohn's Disease N Seasonal allergies N Alzheimer's/Dementia N COPD/Emphysema N Endometriosis N HPV/Genital Warts N IBS (Irritable Bowel Syndrome) N History of Abnormal Pap N High Cholesterol N Liver Disease N Fibromyalgia N Kidney Infection N Ulcer N Kidney Disease N HIV N Gallbladder disease N Sickle Cell Disease/Trait N Von Willebrand disease N ADD/ADHD Y Eating Disorder N Anemia N Diabetes Mellitus (non-insulin dependent ) N Multiple Sclerosis N Ovarian Problems N Gonorrhea N Frequent Urinary Tract infections N Osteopenia N Headaches/migraines N GERD (reflux) N Ovarian Cancer N Diabetes (insulin dependent) N Seizures/Epilepsy N Fibroids N Asthma N Heart Attack N Lupus N Endometrial Cancer N Rubella N Blood Clotting Disorder N Bipolar Disorder N Diabetes Mellitus (during ) N Ulcerative Colitis N Hepatitis N Heart Disease N Pulmonary Embolism N RPR N Chicken Pox N Osteoporosis N Gynecological History Statement/Question Response Date of Last Colonoscopy Most Recent Bone Density HPV Vaccine N Date of Last Pap Smear 09/16/2015 Most Recent Mammogram Current Control Method Hysterectom y Age at Menarche 14 Obstetrics History GPAL:G 5 P 5 0 0 5 Type Value Full Term 5 Living 5 Total 5 Past Encounters Encounter ID Performer Location Encounter Start Date Encounter Closed Date Diagnosis/Indication Diagnosis SNOMED-CT Code Diagnosis ICD10 Code Diagnosis Note [id number] Chad Valencia MD [facility] [address] [place] [address] 06/22/2022 17:04:08 06/25/2022 14:06:26 Gynecologic examination 32275149 Z01.89 y.o. here for annual exam. - Pap / HPV cotesting // up to date from , discussed natural course of HPV infection, ASCCP guidelines . Plan to repeat cotesting in - Contracept radha counseling : Discussed options including OCPs, NuvaRing, Nexplanon, hormonal and copper IUDs. Discussed risks, benefits, and side effects of each option, including risk of VTE with hormonal contracept ion and uterine perforatio n with IUD. - Routine labs done with PCP - Mammo at age 42, no increased risk - Depression screen NEG - BMI counseling , diet and exercise reviewed - RTO for annual or PRN Adult atte ntion deficit hyperactivity disorder [id number] F90.9 COUNSELING was provided today regarding the following topics: healthy eating habits. Patient education given on weight management . , regular exercise. Patient handout given on Fitness , and contracept ion ( cont type bc if an option and would like to try like losasoniqu e ) . RECOMMENDA TIONS given include: Multivitam in , avoidance of cigarette smoke , increase fluid intake , stress reduction , and cognitive behavioral therapy latoya . FOLLOW-UP: Schedule a follow-up visit in 1 month. 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 Malaise and fatigue 2717 21416 R53.83 Vaginal dryness 16150471 N89.8 Herpes simplex 05695303 B00.9 [id number] Chad Valencia MD [facility] [address] [place] [address] 10/27/2023 16:53:36 10/28/2023 11:28:21 Mixed urinary incontinence 291594791 N39.46 loses urine w/coughing sneezing and seems to be getting worse over the years and she has no dysuria and nocturia x 1 and more urgncy Adult atte ntion deficit hyperactivity disorder 391647637 F90.9 Family his tory of breast cancer [id number] Z80.3 will get BRACA at her next visit Vitamin D deficiency 347 02185 E55.9 at next visit Health Concerns Section Related Observation LastModified by Organization Detai ls LastModified Time None Recorded Concern Status LastModified by Organization Details LastModified Time None Recorded Advance Directives Directive None Recorded Payers Encounter Date Sequence Insurance Name Policy Number Policy Mehta Covered Member ID Mehta Member ID Guarantor Name 06/22/2022 1 [facility] [id number] Brittany Duenaserstrom [id number] Brittany Duenaserstrom 10/27/2023 1 [facility] ([facility] [id number] Brittany Duenaserstrom [id number] Brittany Krauscherrieramona Notes Date Note Type Note Provider Name and Address Organization Details Recorded Time 06/22/2022 text/html Annual GYNReport ed bypatient.Urinary symptoms:No hematuria; No incontinence Vulva:No genital lesion Vagina:Normal vaginal discharge Breast:No breast pain; No breast lump; No nipple discharge Current Contraception:partial hysterectomy Sexual complaints:No sexual complaints; No pain during intercourse; Normal libido Menopausal Symptoms:Hot flashes;Inadequacy of lubrication of vaginal mucosa Psychological symptoms:No depression; No anxiety; No PMDD; ADHD Chad Valencia MD [address] [place] [address], [phone], [facility] 06/23/2022 17:18:48 10/27/2023 text/html Overactive BladderReported bypatient.Severity:se saulo Duration:present for 1-6 months Onset/Timing:constant Associated Symptoms:incomplete emptying of bladder;incontinence; severe stress incontinence (8/10);functional incontinence (/10 caused by );severe urge incontinence (8/10) Chad Valencia MD [address] [place] [address], [phone], [facility] [employer] IV 10/27/2023 18:01:01 OBGyn Episode Ob Episode Information Episode Created Date Number of Fetuses Patient Bloodtype Patient rh Status Prepregnancy Weight lbs Domestic Partner Domestic Partner Phone Father Name Slot Floorperson Status 10/31/19 22 1 CLOSED Fetus Data First Name Last Name Admitted to NICU Weight (g) Sex Living Outcome Pediatric Complications Fetus ID Race Codes Race Delivery Type 3628.73 6 M [id number] Zechariah Calculation Initial Zechariah Date Initial Exam Date Initial Exam Provider Initial Ultrasound Date Last Menstrual Period Date Ultra Sound Weeks Gestation 0 Eighteen To Twenty Week Zechariah Update Ultra Sound Date Fundal Height At Umbil Quickening Date Ultra Sound Latest Weeks Gestation Final Zechariah Confirmed By Final Zechariah Confirmed Date Final Zechariah Date Ultra Sound Latest Days Gestation 0 0 Menstrual History Last Menstrual Date Menses Monthly On Bcp Conception Prior Menses Frequency Hcg Plus Date Menarche Onset Age Delivery Information Delivery Date Delivery Type Labor Anesthesia Weeks Gestation Incision Type Labor Labor Length Hrs Delivered By Post Complications Tubal Sterilization Discharge Date Comments 2 280 false Discharge Information Feeding Method Contraceptive Method Maternal HG B and HCT Levels Ob Episode Information Episode Created Date Number of Fetuses Patient Bloodtype Patient rh Status Prepregnancy Weight lbs Domestic Partner Domestic Partner Phone Father Name Slot Floorperson Status 10/31/19 22 1 CLOSED Fetus Data First Name Last Name Admitted to NICU Weight (g) Sex Living Outcome Pediatric Complications Fetus ID Race Codes Race Delivery Type 3628.73 6 F [id number] Zechariah Calculation Initial Zechariah Date Initial Exam Date Initial Exam Provider Initial Ultrasound Date Last Menstrual Period Date Ultra Sound Weeks Gestation 0 Eighteen To Twenty Week Zechariah Update Ultra Sound Date Fundal Height At Umbil Quickening Date Ultra Sound Latest Weeks Gestation Final Zechariah Confirmed By Final Zechariah Confirmed Date Final Zechariah Date Ultra Sound Latest Days Gestation 0 0 Menstrual History Last Menstrual Date Menses Monthly On Bcp Conception Prior Menses Frequency Hcg Plus Date Menarche Onset Age Delivery Information Delivery Date Delivery Type Labor Anesthesia Weeks Gestation Incision Type Labor Labor Length Hrs Delivered By Post Complications Tubal Sterilization Discharge Date Comments 6 280 false Discharge Information Feeding Method Contraceptive Method Maternal HG B and HCT Levels Ob Episode Information Episode Created Date Number of Fetuses Patient Bloodtype Patient rh Status Prepregnancy Weight lbs Domestic Partner Domestic Partner Phone Father Name Slot Floorperson Status 10/31/19 22 1 CLOSED Fetus Data First Name Last Name Admitted to NICU Weight (g) Sex Living Outcome Pediatric Complications Fetus ID Race Codes Race Delivery Type 3628.73 6 M [id number] Zechariah Calculation Initial Zechariah Date Initial Exam Date Initial Exam Provider Initial Ultrasound Date Last Menstrual Period Date Ultra Sound Weeks Gestation 0 Eighteen To Twenty Week Zechariah Update Ultra Sound Date Fundal Height At Umbil Quickening Date Ultra Sound Latest Weeks Gestation Final Zechariah Confirmed By Final Zechariah Confirmed Date Final Zechariah Date Ultra Sound Latest Days Gestation 0 0 Menstrual History Last Menstrual Date Menses Monthly On Bcp Conception Prior Menses Frequency Hcg Plus Date Menarche Onset Age Delivery Information Delivery Date Delivery Type Labor Anesthesia Weeks Gestation Incision Type Labor Labor Length Hrs Delivered By Post Complications Tubal Sterilization Discharge Date Comments 8 280 true Discharge Information Feeding Method Contraceptive Method Maternal HG B and HCT Levels Ob Episode Information Episode Created Date Number of Fetuses Patient Bloodtype Patient rh Status Prepregnancy Weight lbs Domestic Partner Domestic Partner Phone Father Name Slot Floorperson Status 10/31/19 22 1 CLOSED Fetus Data First Name Last Name Admitted to NICU Weight (g) Sex Living Outcome Pediatric Complications Fetus ID Race Codes Race Delivery Type F [id number] Zechariah Calculation Initial Zechariah Date Initial Exam Date Initial Exam Provider Initial Ultrasound Date Last Menstrual Period Date Ultra Sound Weeks Gestation 0 Eighteen To Twenty Week Zechariah Update Ultra Sound Date Fundal Height At Umbil Quickening Date Ultra Sound Latest Weeks Gestation Final Zechariah Confirmed By Final Zechariah Confirmed Date Final Zechariah Date Ultra Sound Latest Days Gestation 0 0 Menstrual History Last Menstrual Date Menses Monthly On Bcp Conception Prior Menses Frequency Hcg Plus Date Menarche Onset Age Delivery Information Delivery Date Delivery Type Labor Anesthesia Weeks Gestation Incision Type Labor Labor Length Hrs Delivered By Post Complications Tubal Sterilization Discharge Date Comments 1 280 true Discharge Information Feeding Method Contraceptive Method Maternal HG B and HCT Levels Ob Episode Information Episode Created Date Number of Fetuses Patient Bloodtype Patient rh Status Prepregnancy Weight lbs Domestic Partner Domestic Partner Phone Father Name Slot Floorperson Status 10/31/19 22 1 CLOSED Fetus Data First Name Last Name Admitted to NICU Weight (g) Sex Living Outcome Pediatric Complications Fetus ID Race Codes Race Delivery Type 2721.55 2 M [id number] Zechariah Calculation Initial Zechariah Date Initial Exam Date Initial Exam Provider Initial Ultrasound Date Last Menstrual Period Date Ultra Sound Weeks Gestation 0 Eighteen To Twenty Week Zechariah Update Ultra Sound Date Fundal Height At Umbil Quickening Date Ultra Sound Latest Weeks Gestation Final Zechariah Confirmed By Final Zechariah Confirmed Date Final Zechariah Date Ultra Sound Latest Days Gestation 0 0 Menstrual History Last Menstrual Date Menses Monthly On Bcp Conception Prior Menses Frequency Hcg Plus Date Menarche Onset Age Delivery Information Delivery Date Delivery Type Labor Anesthesia Weeks Gestation Incision Type Labor Labor Length Hrs Delivered By Post Complications Tubal Sterilization Discharge Date Comments 5 274 false 13 Discharge Information Feeding Method Contraceptive Method Maternal HG B and HCT Levels
--- OUTSIDE RECORDS SUMMARY | 2024-09-28 23:44 | XMS_ITS | Clinical Summary ---
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 Gender Identity Not on file Sexual Orientation Not on file Plan of Treatment Health Maintenance Due Date Last Done Comments Hepatitis C Virus (HCV) Screening 1982 Pap Smear 12/28/2003 Cervical Cancer Screening (CCS) 2012 HPV/Cotest 2012 Discussion re Starting/Frequency of Mammograms 2022 Influenza Immunization (#1) 2024 SARS-COV-2 Immunization ( season) 2024 Respiratory Syncytial Virus (RSV) Immunization (Adult) (1 - 1-dose 75+ series) 2057 Hepatitis B Immunization Completed 001, 04/26/2000, 11/20/1998 DTaP/Tdap/Td Immunization Discontinued 2014, 04/26/2000, 01/18/1997, Additional history exists TdaP Immunization Completed 01/29/2015 Meningococcal Immunization (ACWY) Aged Out No longer eligible based on patient's age to complete this topic Pneumococcal Immunization Combined Aged Out No longer eligible based on patient's age to complete this topic Rotavirus Immunization Aged Out No lo nger eligible based on patient's age to complete this topic
--- OUTSIDE RECORDS SUMMARY | 2024-09-28 23:44 | XMS_ITS | Referral Summary ---
Author Organization [facility] Address [address] [place] [address] Care Team Providers Care Ship Rigger Name Role Phone Arthur Marsh DO Primary Care Provider Source Comments [facility],non-owned Affiliates and Associated Physician Practices is amultiple site organization consisting of ambulatory clinics and hospital sitesin [place], [place], [place] and [place]. This disclosure is being madepursuant to the Care Everywhere program and may not contain all information available regarding this patient. Last updated 18.[facility] Social History Tobacco Use Types Packs/Day Years Used Date Smoking Tobacco: Never Assessed Sex and Gender Information Value Date Recorded Sex Assigned at Not on file Gender Identity Not on file Sexual Orientation Not on file Last Filed Vital Signs Vital Sign Reading Time Taken Comments Blood Pressure 151/111 01/19/2024 12:44 PM CDT Pulse 98 01/19/2024 12:44 PM CDT Temperature 36.4 C (97.6 F) 01/19/2024 12:44 PM CDT Respiratory Rate 16 01/19/2024 12:44 PM CDT Oxygen Saturation 100% 01/19/2024 12:44 PM CDT Inhaled Oxygen Concentration - - Weight 74.8 kg (165 lb) 01/19/2024 12:44 PM CDT Height 165.1 cm (5' 5 ) 01/19/2024 12:44 PM CDT Body Mass Index 27.46 01/19/2024 12:44 PM CDT Plan of Treatment Not on file Care Teams Ship Rigger Relationship Specialty Start Date End Date Arthur Marsh DO [address] [place] [id number] [facility] - General 11/16/05
--- OUTSIDE RECORDS SUMMARY | 2024-09-28 23:44 | XMS_ITS | Clinical Summary ---
Author Organization [facility] Address [address] [place] [address] Care Team Providers Care Help Desk Rep Name Role Phone Arthur Marsh DO Primary Care Provider Source Comments [facility],non-owned Affiliates and Associated Physician Practices is amultiple site organization consisting of ambulatory clinics and hospital sitesin [place], [place], [place] and [place]. This disclosure is being madepursuant to the Care Everywhere program and may not contain all information available regarding this patient. Last updated 18.[facility] Social History Tobacco Use Types Packs/Day Years [...] 01/19/2024 12:44 PM CDT Plan of Treatment Health Maintenance Due Date Last Done Comments LIPID TESTING 1982 MAMMOGRAM 1982 PAP SMEAR 1982 HIV SCREENING 1997 HEPATITIS C SCREENING 12/22/2000 DTAP/TDAP/TD VACCINES (1 - Tdap) 2001 HEPATITIS B VACCINE (1 of 3 - 19+ 3-dose series) 2001 COVID-19 VACCINE (1 - 2023-2 5 season) 2024 INFLUENZA VACCINE (#1) 2024 6, 06/19/2005 DEPRESSION SCREENING 08/16/2024 ZOSTER VACCINE (1 of 2) 2032 HIB VACCINE Aged Out No longer eligi ble based on patient's age to complete this topic HPV VACCINE Aged Out No longer eligi ble based on patient's age to complete this topic MENINGOCOCCAL (Group B) VACCINE Aged Out No longer eligible b ased on patient's age to complete this topic MENINGOCOCCAL VACCINE Aged Out No abby ren eligible based on patient's age to complete this topic PNEUMOCOCCAL VACCINE Aged Out No long er eligible based on patient's age to complete this topic Care Teams Help Desk Rep Relationship Specialty Start Date End Date Arthur Marsh DO [address] [place] [id number] PCP - General 11/16/05
--- OUTSIDE RECORDS SUMMARY | 2024-09-28 23:44 | XMS_ITS | Patient Health Summary ---
Author Organization [facility] Address [address] [place] [address] Care Team Providers Care Home Assessment Nurse Name Role Phone Arthur Marsh DO Primary Care Provider Note from [facility],non-owned Affiliates and Associated Physician Practices is amultiple site organization consisting of ambulatory clinics and hospital sitesin [place], [place], [place] and [place]. This disclosure is being madepursuant to the Care Everywhere program and may not contain all information available regarding this patient. Last updated 18.[facility] Social History Tobacco Use Types Packs/Day Years [...] Mass Index 27.46 01/19/2024 12:44 PM CDT Care Teams Home Assessment Nurse Relationship Specialty Start Date End Date Arthur Marsh DO [address] [place] [id number] [facility] - General 11/16/05
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
[2024-09-28 23:49] LABS: Alanine Aminotransferase 90 U/L (6-35); Albumin Level 4.6 g/dL (3.5-5.1); Alkaline Phosphatase 140 U/L (38-126); Anion Gap 18 mmol/L (4-12); Aspartate Amino Transferase 253 U/L (14-36); Bilirubin,Total 0.7 mg/dL (0.2-1.3); Blood Urea Nitrogen 8 mg/dL (7-17); Calcium 8.6 mg/dL (8.4-10.2); Carbon Dioxide 25 mmol/L (22-30); Chloride 99 mmol/L (98-107); Estimated CRCL calculation 99 ml/min; Estimated Glomerular Filt Rate > 60; Glucose 87 mg/dL (65-110); Potassium 4.1 mmol/L (3.4-5.0); Sodium 142 mmol/L (137-145)
[2024-09-29] VITALS (19 sets, daily range): BP systolic 94–148; BP diastolic 74–118; PULSE 89–137; RESP 14–24; TEMP 36.8–37.1; O2SAT 86–100
[2024-09-29 00:15] LABS: SPREG INTERNAL CONTROL Positive; Serum Qual hCG Negative
[2024-09-29] MEDS: PROPOFOL IV EMULSION 200 MG/20 ML VIAL IV PUSH (00:16)
[2024-09-29 00:32] LABS: INR 0.9; Prothrombin Time 12.5 Seconds (11.1-14.7)
[2024-09-29 00:33] LABS: Partial Thromboplastin Time 26.8 Seconds (22.3-36.8)
[2024-09-29] MEDS: HYDROmorphone HCL INJ (*CRX) 1 MG/ML SYR (00:44)
--- NOTE | 2024-09-29 01:05 | PC.NURSE ---
EDP states end of sedation at 0103.
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
[2024-09-29] MEDS: TETANUS,DIPHTHERIA,AC PERTUSSIS ADULT (0.5 ML) BOOSTRIX IM (01:18)
[2024-09-29] MEDS: HYDROcodone/acetaminophen (*CRX) 5-325 MG TABLET 1 TAB PO (02:48)
[2024-09-29] MEDS: KETOROLAC 15 MG/ML VIAL (*BKC) IV PUSH (02:48)
[2024-09-29] MEDS: VANCOMYCIN 1,000 MG/NS 250 ML BAG 250 MG IVPB (04:31)
== END 2024-09-29 06:01 | disposition home or self-care (01) ==
PROVIDERS: Emergency Provider Student in an Organized Health Care Education/Training Program
DX: S63.263A Dislocation of metacarpophalangeal joint of left middle finger, initial encounter (principal); S63.281A Dislocation of proximal interphalangeal joint of left index finger, initial encounter; S63.285A Dislocation of proximal interphalangeal joint of left ring finger, initial encounter; S61.211A Laceration without foreign body of left index finger without damage to nail, initial encounter; Z23 Encounter for immunization; Z98.84 Bariatric surgery status; Z85.6 Personal history of leukemia; Z90.710 Acquired absence of both cervix and uterus; Z79.899 Other long term (current) drug therapy; Y35.813A Legal intervention involving manhandling, suspect injured, initial encounter
CPT/HCPCS: 12001; 26700; 26770; 26785; 36415; 70450; 71045; 72125; 72170; 73130; 80053; 84703; 85025; 85055; 85610; 85730; 90471; 90715; 96374; 96375; 99285; A9270; J1171; J1885; J2003; J2704; J3010; J3370

== ENCOUNTER 2025-01-01 14:48 | Emergency (ER) | payer OTHER, SELFPAY ==
[2025-01-01] VITALS (20 sets, daily range): BP systolic 128–154; BP diastolic 86–104; PULSE 108–130; RESP 15–22; TEMP 36.7–36.8; O2SAT 96–100
--- OUTSIDE RECORDS SUMMARY | 2025-01-01 14:52 | XMS_ITS | Data Portability ---
Author Organization [employer] , [facility] Address [address] [place] [address] Assessment No assessment recorded. Plan of Treatment Reminders Order Date Submit Date Provider Last Modified By Organization Details Last Modified Time Details Appointments None recorded. Lab vitamin D, 25-hydroxy, total, serum 2023 024 [employer] [facility], [address], [place], [address], 4 11:26:13 vitamin B12, serum 2023 024 [employer] [facility], [address], [place], [address], 4 11:26:13 CBC w/ auto diff 2021 022 [employer] [facility], [address] [place], [address], 2 10:20:41 CMP, serum or plasma 2021 022 [employer] [facility], [address] [place], [address], 2 10:20:41 Referral None recorded. Procedures None recorded. Surgeries None recorded. Imaging None recorded. Medication Orders dextroamphe tamine-amph etamine 30 mg tablet 2023 024 [facility] [address] [facility], [address], [place], [address], 4 17:52:01 oxybutynin chloride ER 5 mg tablet,exte nded release 24 hr 2023 024 [facility] [address] In [facility], [address] [place] [address], [address], 4 17:49:39 Macrobid 100 mg capsule 2023 024 [facility] [address], [address], 4 17:49:40 Valtrex [address] [id number] [address] [place], [address], 2 17:39:23 Valtrex [address] [id number], [address] [place], [address], 2 17:39:23 Estrace 0.01% (0.1 mg/gram) vaginal cream [address] [id number], [address] [place], [address], 2 17:37:33 dextroamphe tamine-amph etamine [address] [id number] [address] [place], [address], 2 17:30:11 Patient TargetsNo targets recorded. Patient InstructionsNo instructions recorded. Reason for Referral None Reported. Results Created Date Observation Date Name Description Value Unit Range Abnormal Flag Note LastModifiedBy Organization Detail LastModifiedTime 08/13/20 22 08/13/2022 CBC (INCL UDES DIFF/ PLT) CBC (includes diff/plt) Cancel ling lab order - no specim en receiv ed into [facility] from 06/30 requis ition Not Available [facility] [address] [place], [address], 08/13/2022 14:43:21 08/13/20 22 08/13/2022 COMPR EHENS RADHA METAB OLIC PANEL comprehensiv e metabolic panel Cancel ling lab order - no specim en receiv ed into [facility] from 06/30 requis ition Not Available [facility] [address] [place], [address], 08/13/2022 14:43:23 10/29/19 23 10/29/2022 COMPR EHENS RADHA METAB OLIC PANEL glucose 85 mg/dL 65-99 normal Fasti ng refer ence inter nova Not Available [address], [address], 10/29/2022 13:46:30 10/29/19 23 10/29/2022 COMPR EHENS RADHA METAB OLIC PANEL urea nitrogen (BUN) 21 mg/dL 7-25 normal Not Available [address], [address], 10/29/2022 13:46:30 10/29/19 23 10/29/2022 COMPR EHENS RADHA METAB OLIC PANEL creatinine 0.64 mg/dL 0.50-0 .97 normal Not Available [address], [address], 10/29/2022 13:46:30 10/29/19 23 10/29/2022 COMPR EHENS RADHA METAB OLIC PANEL eGFR 115 mL/mi n/1.7 3m2 > or = 60 normal The eGFR is based on the CKD-E PI 2020 equat ion. To calcu late the new eGFR from a previ ous Creat inine or Cysta kostas hernandez t, go to [email or web address] :[email or web address] resendez s/ kdoqi /[email or web address] 5Fcal culat or Not Available [address], [address], 10/29/2022 13:46:30 10/29/19 23 10/29/2022 COMPR EHENS RADHA METAB OLIC PANEL BUN/creatini ne ratio NOT APPLIC ABLE (calc ) 6-22 Not Available [address], [address], 10/29/2022 13:46:30 10/29/19 23 10/29/2022 COMPR EHENS RADHA METAB OLIC PANEL sodium 135 mmol/ L 135-14 6 normal Not Available [address], [address], 10/29/2022 13:46:30 10/29/19 23 10/29/2022 COMPR EHENS RADHA METAB OLIC PANEL potassium 3.8 mmol/ L 3.5-5. 3 normal Not Available [address], [address], 10/29/2022 13:46:30 10/29/19 23 10/29/2022 COMPR EHENS RADHA METAB OLIC PANEL chloride 100 mmol/ L 98-110 normal Not Available [address], [address], 10/29/2022 13:46:30 10/29/19 23 10/29/2022 COMPR EHENS RADHA METAB OLIC PANEL carbon dioxide 29 mmol/ L 20-32 normal Not Available [address], [address], 10/29/2022 13:46:30 10/29/19 23 10/29/2022 COMPR EHENS RADHA METAB OLIC PANEL calcium 9.1 mg/dL 8.6-10 .2 normal Not Available [address], [address], 10/29/2022 13:46:30 10/29/19 23 10/29/2022 COMPR EHENS RADHA METAB OLIC PANEL protein, total 6.4 g/dL 6.1-8. 1 normal Not Available [facility] [address] [place], [address], 10/29/2022 13:46:30 10/29/19 23 10/29/2022 COMPR EHENS RADHA METAB OLIC PANEL albumin 4.1 g/dL 3.6-5. 1 normal Not Available [facility] [address] [address] [place], [address], 10/29/2022 13:46:30 10/29/19 23 10/29/2022 COMPR EHENS RADHA METAB OLIC PANEL globulin 2.3 g/dL_ (calc ) 1.9-3. 7 normal Not Available [address], [address], 10/29/2022 13:46:30 10/29/19 23 10/29/2022 COMPR EHENS RADHA METAB OLIC PANEL albumin/glob ulin ratio 1.8 (calc ) 1.0-2. 5 normal Not Available [address] [address] [place], [address], 10/29/2022 13:46:30 10/29/19 23 10/29/2022 COMPR EHENS RADHA METAB OLIC PANEL bilirubin, total 0.3 mg/dL 0.2-1. 2 normal Not Available [facility] [address] [address] [place], [address], 10/29/2022 13:46:30 10/29/19 23 10/29/2022 COMPR EHENS RADHA METAB OLIC PANEL alkaline phosphatase 47 U/L 31-125 normal Not Available [facility] [address] [address] [place], [address], 10/29/2022 13:46:30 10/29/19 23 10/29/2022 COMPR EHENS RADHA METAB OLIC PANEL AST 30 U/L 10-30 normal Not Available [address] [address] [place], [address], 10/29/2022 13:46:30 10/29/19 23 10/29/2022 COMPR EHENS RADHA METAB OLIC PANEL ALT 22 U/L 6-29 normal Not Available [address], [address], 10/29/2022 13:46:30 10/29/19 23 10/29/2022 CBC (INCL UDES DIFF/ PLT) white blood cell count 6.4 thous and/u L 3.8-10 .8 normal Not Available [address], [address], 10/29/2022 13:46:31 10/29/19 23 10/29/2022 CBC (INCL UDES DIFF/ PLT) red blood cell count 3.83 kaiser on/uL 3.80-5 .10 normal Not Available [address], [address], 10/29/2022 13:46:31 10/29/19 23 10/29/2022 CBC (INCL UDES DIFF/ PLT) hemoglobin 11.3 g/dL 11.7-1 5.5 low Not Available [address], [address], 10/29/2022 13:46:31 10/29/19 23 10/29/2022 CBC (INCL UDES DIFF/ PLT) hematocrit 33.3 % 35.0-4 5.0 low Not Available [address], [address], 10/29/2022 13:46:31 10/29/19 23 10/29/2022 CBC (INCL UDES DIFF/ PLT) MCV 86.9 fL 80.0-1 00.0 normal Not Available [address], [address], 10/29/2022 13:46:31 10/29/19 23 10/29/2022 CBC (INCL UDES DIFF/ PLT) MCH 29.5 pg 27.0-3 3.0 normal Not Available [address], [address], 10/29/2022 13:46:31 10/29/19 23 10/29/2022 CBC (INCL UDES DIFF/ PLT) MCHC 33.9 g/dL 32.0-3 6.0 normal Not Available [address], [address], 10/29/2022 13:46:31 10/29/19 23 10/29/2022 CBC (INCL UDES DIFF/ PLT) RDW 11.8 % 11.0-1 5.0 normal Not Available [address], [address], 10/29/2022 13:46:31 10/29/19 23 10/29/2022 CBC (INCL UDES DIFF/ PLT) platelet count 265 thous and/u L 140-40 0 normal Not Available [address], [address], 10/29/2022 13:46:31 10/29/19 23 10/29/2022 CBC (INCL UDES DIFF/ PLT) MPV 10.8 fL 7.5-12 .5 normal Not Available [address], [address], 10/29/2022 13:46:31 10/29/19 23 10/29/2022 CBC (INCL UDES DIFF/ PLT) absolute neutrophils 4365 cells /uL 1500-7 800 normal Not Available [address], [address], 10/29/2022 13:46:31 10/29/19 23 10/29/2022 CBC (INCL UDES DIFF/ PLT) absolute lymphocytes 1344 cells /uL 850-39 00 normal Not Available [address], [address], 10/29/2022 13:46:31 10/29/19 23 10/29/2022 CBC (INCL UDES DIFF/ PLT) absolute monocytes 480 cells /uL 200-95 0 normal Not Available [address], [address], 10/29/2022 13:46:31 10/29/19 23 10/29/2022 CBC (INCL UDES DIFF/ PLT) absolute eosinophils 192 cells /uL 15-500 normal Not Available [address], [address], 10/29/2022 13:46:31 10/29/19 23 10/29/2022 CBC (INCL UDES DIFF/ PLT) absolute basophils 19 cells /uL 0-200 normal Not Available [facility] [address], [address], 10/29/2022 13:46:31 10/29/19 23 10/29/2022 CBC (INCL UDES DIFF/ PLT) neutrophils 68.2 % normal Not Available [facility] [address], [address], 10/29/2022 13:46:31 10/29/19 23 10/29/2022 CBC (INCL UDES DIFF/ PLT) lymphocytes 21.0 % normal Not Available [address], [address], 10/29/2022 13:46:31 10/29/19 23 10/29/2022 CBC (INCL UDES DIFF/ PLT) monocytes 7.5 % normal Not Available [facility] [address], [address], 10/29/2022 13:46:31 10/29/19 23 10/29/2022 CBC (INCL UDES DIFF/ PLT) eosinophils 3.0 % normal Not Available [address], [address], 10/29/2022 13:46:31 10/29/19 23 10/29/2022 CBC (INCL UDES DIFF/ PLT) basophils 0.3 % normal Not Available [facility] [address] [place], [address], 10/29/2022 13:46:31 Result Notes None recorded. Problems Name Problem SNOMED Code Status Onset Date Resolution Date Notes Provider Name and Address Organization Details Recorded Time Vitamin deficien cy Active 2015 Deficien cy of other specifie d B group vitamins ; Progress : Stable Added By: Chad Valencia Add to Current Problems : YES ProblemS tatus: Current Not Available [facility] 2 20:28:10 Sampling of vagina for Papanico laou smear Active 2019 Encounte r for gynecolo gical examinat ion (general ) (routine ) without abnormal findings ; Progress : Stable Added By: Maureen Ayala Add to Current Problems : YES ProblemS tatus: Current Not Available [facility] 2 20:28:04 Moderate major depressi on, single episode 40229648 Active 2016 Major depressi ve disorder , single episode, moderate ; Progress : Stable Added By: Chad Valencia Add to Current Problems : YES ProblemS tatus: Current Not Available [facility] 2 20:28:06 Blood in urine 41520143 Active 2016 Hematuri a; Location : None Progress : Stable Added By: Paige Obregon Add to Current Problems : NO ProblemS tatus: Current; Start Date : 01/26/20 15 Hemat uria; Progress : Stable Added By: Paige Obregon Add to Current Problems : NO ProblemS tatus: Resolve; Start Date : 01/26/20 15 Gross hematuri a; Location : None Progress : Stable Added By: Cahd Valencia Add to Current Problems : YES ProblemS tatus: Current Not Available [facility] 2 20:28:09 Alopecia 94573427 Active 2020 Nonscarr ing hair loss, unspecif ied; Progress : Stable Added By: Chad Valencia Add to Current Problems : YES ProblemS tatus: Current Not Available [facility] 2 20:28:07 Finding of pattern of menstrua l cycle 556561406 Completed 201403/06/2016 Excessiv e and frequent menstrua tion with irregula r cycle; Progress : Stable Added By: Rebeca Man Add to Current Problems : NO ProblemS tatus: Resolve Menorrha lokesh; Location : None Progress : Stable Added By: Rebeca Man Add to Current Problems : YES ProblemS tatus: Resolve Not Available [facility] 2 20:28:[address] Concept Active 2015 Encounte r for follow-u p examinat ion after complete d treatmen t for conditio ns other than malignan t neoplasm ; Progress : Stable Added By: Sarah Beck Add to Current Problems : YES ProblemS tatus: Current Not Available [facility] 2 20:28:07 Genuine stress incontin ence 56242456 Active 2018 Stress incontin ence (female) (male); Progress : Stable Added By: Chad Valencia Add to Current Problems : YES ProblemS tatus: Current Not Available [facility] 2 20:28:03 Irregula r periods 41059388 Completed 201609/04/2017 Abnormal vaginal bleeding ; Location : None Progress : Stable Added By: Chad Valencia Add to Current Problems : NO ProblemS tatus: Resolve Not Available [facility] 2 20:28:09 Pain in female genitali a Completed 201505/11/2016 Dysmenor terrell, unspecif ied; Progress : Stable Added By: Chad Valencia Add to Current Problems : NO ProblemS tatus: Resolve Not Available [facility] 2 20:28:06 Anemia during pregnanc y - baby not yet delivere d 424500833 Completed 201410/31/2018 Anemia complica ting pregnanc y; Progress : Stable Added By: Paige Obregon Add to Current Problems : NO ProblemS tatus: Resolve Not Available [facility] 2 20:28:08 Pelvic and perineal pain 238849144 Completed 201507/19/2016 Pelvic and perineal pain; Progress : Stable Added By: Chad Valencia Add to Current Problems : NO ProblemS tatus: Resolve Pelvic pain, female; Location : None Progress : Stable Added By: Chad Valencia Add to Current Problems : YES ProblemS tatus: Resolve Not Available [facility] 2 20:28:05 Finding of menstrua l bleeding Completed 201409/04/2017 Excessiv e and frequent menstrua tion with regular cycle; Progress : Stable Added By: Chad Valencia Add to Current Problems : NO ProblemS tatus: Resolve Not Available [facility] 2 20:28:[address] Concept Completed 201505/10/2016 Encounte r for surveill ance of other contrace ptives; Progress : Stable Added By: Kary Odom Add to Current Problems : NO ProblemS tatus: Resolve Not Available [facility] 2 20:28:11 Menometr orrhagia 455766663 Active 2014 Menometr orrhagia ; Location : None Severity : Moderate Progress : Stable Added By: Kary Odom Add to Current Problems : YES ProblemS tatus: Current Menometr orrhagia ; Severity : Moderate Progress : Stable Added By: Chad Valencia Add to Current Problems : NO ProblemS tatus: Resolve Not Available [facility] 1 10:46:25 Attentio n deficit hyperact ivity disorder , 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 7482027 Active 2018 Attentio n-defici t hyperact ivity disorder , predomin antly hyperact radha type; Progress : Stable Added By: Chad Valencia Add to Current Problems : YES ProblemS tatus: Current Not Available [facility] 2 20:28:07 Mild major depressi on, single episode 20816988 Active 2015 Depressi on; Location : None Progress : Stable Added By: Chad Valencia Add to Current Problems : NO ProblemS tatus: Current Major depressi ve disorder , single episode, mild; Progress : Stable Added By: Chad Valencia Add to Current Problems : YES ProblemS tatus: Current Not Available [facility] 2 20:28:04 Attentio n deficit hyperact ivity disorder 882129362 Completed 201710/31/2018 ADHD; Location : None Progress : Stable Added By: Cynthia Ayala Add to Current Problems : NO ProblemS tatus: Current ADHD; Progress : Stable Added By: Cynthia Ayala Add to Current Problems : NO ProblemS tatus: Resolve Not Available [facility] 2 20:28:08 Vitamin B deficien cy 06748967 Completed 201510/31/2018 Vitamin B12 deficien cy; Location : None Progress : Stable Added By: Lou Mac Add to Current Problems : YES ProblemS tatus: Current Vitamin B12 deficien cy; Progress : Stable Added By: Reinleanne er Lou Add to Current Problems : NO ProblemS tatus: Resolve Not Available [facility] 2 20:28:09 Dystroph y of vulva 89520244 Completed 201510/31/2018 Other dystroph y of vulva; Progress : Stable Added By: Chad Valencia Add to Current Problems : NO ProblemS tatus: Resolve Not Available [facility] 2 20:28:10 Adjustme nt disorder with mixed anxiety and depresse d mood 731363686 Completed 201510/21/2015 Adjustme nt disorder with mixed anxiety and depresse d mood; Progress : Stable Added By: Chad Valencia Add to Current Problems : NO ProblemS tatus: Resolve Not Available [facility] 2 20:28:07 Uses contrace ption 41768363 Completed 201505/10/2016 Contrace ptive maintena nce; Severity : Moderate Progress : Stable Added By: Kary Odom Add to Current Problems : NO ProblemS tatus: Resolve Not Available [facility] 1 10:46:26 Surgical follow-u p - normal 175260511 Completed 201510/31/2018 Follow-u p exam followin g surgery; Location : None Severity : Moderate Progress : Stable Added By: Sarah Beck Add to Current Problems : YES ProblemS tatus: Current Follow-u p exam followin g surgery; Severity : Moderate Progress : Stable Added By: Sarah Beck Add to Current Problems : NO ProblemS tatus: Resolve Not Available [facility] 1 10:46:26 Uses combined oral contrace ption 127747583 Completed 201403/06/2016 Encounte r for surveill ance of contrace ptive pills; Progress : Stable Added By: Rebeca Man Add to Current Problems : NO ProblemS tatus: Resolve Not Available [facility] 2 20:28:04 Malaise and fatigue 601310354 Completed 201410/31/2018 Malaise and Fatigue; Progress : Stable Added By: Rebeca Man Add to Current Problems : NO ProblemS tatus: Resolve Malaise and Fatigue; Location : None Progress : Stable Added By: Rebeca Man Add to Current Problems : YES ProblemS tatus: Current Not Available [facility] 2 20:28:06 Leukopla moe of vulva 117381151 Active 2015 Leukopla moe of vulva; Progress : Stable Added By: Chad Valencia Add to Current Problems : YES ProblemS tatus: Current Other dystroph y of vulva; Location : None Progress : Stable Added By: Chad Valencia Add to Current Problems : NO ProblemS tatus: Current Not Available [facility] 2 20:28:05 Female genital organ symptoms 622005112 Completed 201507/19/2016 Pelvic pain, female; Severity : Moderate Progress : Stable Added By: Chad Valencia Add to Current Problems : NO ProblemS tatus: Resolve pelvic pain; Location : None Added By: Arlyn Elias Add to Current Problems : NO ProblemS tatus: Current; Start Date : 10/10/19 15 Not Available [facility] 1 10:46:27 Dysmenor terrell 284787807 Completed 201505/11/2016 Dysmenor terrell; Progress : Stable Added By: Chad Valencia Add to Current Problems : NO ProblemS tatus: Resolve Not Available [facility] 2 20:28:03 Menopaus e present 856341201 Active 2016 Menopaus al and female climacte zenaida states; Severity : Moderate Progress : Stable Added By: Maureen Ayala Add to Current Problems : YES ProblemS tatus: Current Menopaus e; Location : None Severity : Moderate Progress : Stable Added By: Chad Valencia Add to Current Problems : YES ProblemS tatus: Resolve Not Available [facility] 1 10:46:27 Uterine size for dates discrepa ncy 579382746 Completed 201410/31/2018 Uterine size date discrepa ncy, antepart um conditio n or complica tion; Progress : Stable Added By: Britney Hamilton Add to Current Problems : NO ProblemS tatus: Resolve Not Available [facility] 2 20:28:05 Dysfunct ional uterine bleeding Completed 201510/21/2015 DUB; Location : None Progress : Stable Added By: Chad Valencia Add to Current Problems : NO ProblemS tatus: Resolve Not Available [facility] 2 20:28:08 David hematuri a 960185537 Completed 201610/31/2018 Gross hematuri a; Progress : Stable Added By: Chad Valencia Add to Current Problems : NO ProblemS tatus: Resolve Not Available [facility] 2 20:28:05 Depressi ve disorder 84188001 Active 2016 Depressi on; Progress : Stable Added By: Chad Valencia Add to Current Problems : NO ProblemS tatus: Resolve Depressi on; Location : None Progress : Stable Added By: Chad Valencia Add to Current Problems : YES ProblemS tatus: Current Not Available [facility] 2 20:28:08 Single major depressi ve episode Completed 201510/31/2018 Depressi on; Severity : Moderate Progress : Stable Added By: Chad Valencia Add to Current Problems : NO ProblemS tatus: Resolve Not Available [facility] 1 10:46:28 Mixed urinary incontin ence 828568488 Active 2019 Mixed incontin ence; Progress : Stable Added By: Chad Valencia Add to Current Problems : YES ProblemS tatus: Current [facility] Available [facility] 2 20:28:09 Chronic fatigue syndrome 52086628 Active 2014 Chronic fatigue, unspecif ied; Progress : Stable Added By: Rebeca Man Add to Current Problems : YES ProblemS tatus: Current Not Available [facility] 20:[facility]10 Adjustme nt disorder with depresse d mood 16112344 Completed 201510/21/2015 Situatio nal depressi ve reaction ; Progress : Stable Added By: Chad Valencia Add to Current Problems : NO ProblemS tatus: Resolve Not Available [facility] 2 20:28:10 Premenst rual tension syndrome 71423923 Active 2018 Premenst rual tension syndrome ; Progress : Stable Added By: Chad Valencia Add to Current Problems : YES ProblemS tatus: Current Not Available [facility] 2 20:28:04 Postpart um care Completed 201401/10/2016 Visit for routine postpart um follow-u p; Location : None Progress : Stable Added By: Fany Jackson Add to Current Problems : YES ProblemS tatus: Resolve Not Available [facility] 2 20:28:03 Female genital organ symptoms 545823053 Active 2014 pelvic pain; Location : None Added By: Arlyn Elias Add to Current Problems : NO ProblemS tatus: Current Not Available [facility] 2 20:28:03 Menometr orrhagia 610110461 Completed 201505/11/2016 Menometr orrhagia ; Location : None Progress : Stable Added By: Chad Valencia Add to Current Problems : NO ProblemS tatus: Resolve Menometr orrhagia ; Location : None Progress : Stable Added By: Kary Odom Add to Current Problems : YES ProblemS tatus: Current; Start Date : 07/25/20 15 Not Available [facility] 2 20:28:04 Menopaus al symptom 95136687 Completed 201603/02/2017 Menopaus e; Progress : Stable Added By: Chad Valencia Add to Current Problems : NO ProblemS tatus: Resolve Not Available [facility] 2 20:28:08 Postoper ative follow-u p visit Active 2015 Follow-u p exam followin g surgery; Location : None Progress : Stable Added By: Sarah Beck Add to Current Problems : YES ProblemS tatus: Current Not Available [facility] 2 20:28:09 Notes:Contraceptive maintena nce (V25.40) ; [...] ResolvedDate: 10/31/2018; Progress: Stable Added By: Paige Obregno Add to Current Problems: NO ProblemStatus: Resolve Problem Notes None recorded. Procedures Surgical History Date Name Laterality Status Provider Name and Address Organization Details Recorded Time 09/16/19 16 Date of Last Pap Smear completed [facility] IV 06/22/2022 14:24:45 hysterectomy completed [facility] IV 06/22/2022 14:25:07 excision of bilateral fallopian tubes and ovaries completed [facility] IV 06/22/2022 14:25:59 Gastric bypass for obesity completed [facility] IV 06/22/2022 14:26:10 cholecystectomy completed [facility] IV 06/22/2022 14:26:23 Dilation and curettage completed [facility] IV 06/22/2022 14:26:33 excision of lymph node completed [facility] IV 06/22/2022 14:26:47 Imaging Results None recorded. Procedure Notes None recorded. Medical Equipment None Reported. Allergies Allergen ID Allergen Name Allergen Category Reaction Reaction Severity Criticality Documentation Date Start Date Code Code System Note Provider Name and Address Organization Details Recorded Time 875909 Paper Tape medicatio n Not available Not available Not available 06/06/20212014 07643 UNK Sever ity: Moder ate; Not Available [facility] 01:17:31 349551 Rocephin medicatio n Not available Not available Not available 06/06/20212014 9449 RxNorm Sever ity: Moder ate; Not Available [facility] 01:17:31 537697 Product containin g penicilli n (product) medicatio n Not available Not available Not available 06/06/20212014 62945 8001 SNOMED Sever ity: Moder ate; Not Available [facility] 01:17:31 Medications Name Sig Start Date Stop Date Status Note LastModified by Organization Details LastModified Time cyclobenz aprine 10 mg tablet TAKE 1 TABLET BY MOUTH AT BEDTIME NEEDED active Not Available Not Available No t Available Adderall 20 mg tablet take 1 tablet po tid 09/29 completed Adderall 20 mg oral tablet RxNorm: 660659 Allow Substitu tion: True Refill Denied: No [...] bid 09/29 completed Topamax 25mg Tablet RxNorm: 222250 Allow Substitu tion: True Refill Denied: No Edited by: Maureen Tinsley ) on 09/29/19 Stopped by: Maureen Tinsley ) on 09/29/19 Not Available Not Available Not Available oxybutyni n chloride ER 10 mg tablet,ex tended release 24 hr one tablet at bedtime 03/30 completed Oxybutyn 041575|[id number]|2025-01-01 14:52:00|2025-01-01 14:52:00|XMS_ITS|PARDEEP PEREZ|External Medical Summaries|[id number]|" Encounter Summary Created on: January 01, 2025 Brittany Dill : 1980 Sex: Female Author Organization 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 Hand Surgery [address] [place] [phone] William Gold MD [address] [place] [phone] Advice Only Social History Tobacco Use Types Packs/Day Years Used Date Smoking Tobacco: Never Smokeless Tobacco: Never AUDIT-C Answer Date Recorded Q1: How often do you have a drink containing alc ohol? Monthly or less 10/17/2024 Q2: How many drinks containi ng alcohol do you have on a typical day when you are drinking? 3 or 4 10/17/2024 Q3: How often do you have si x or more drinks on one occasion? Never 10/17/2024 Personal Safety Answer Date Recorded Have you ever been in or are you currently in a harmful physical or emotional relationship or is someone making you feel afraid or unsafe? 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 Advised to call if any additional concerns. * Telephone Encounter - Berna Reyes MA - 2024 11:08 AM CDT TLB Patient would like a call back , Patient's MRI is scheduled 12/29/2024. She also wants to discuss other concerns. documented in this encounter Plan of Treatment Not on file documented as of this encounter Visit Diagnoses Not on filedocumented in this encounter Care Teams Grinder Set Up Operator Jig Relationship Specialty Start Date End Date Chad Valencia MD [address] [place] [id number] PCP - General Internal Medicine 10/04/24 documented as of this encounter "
--- OUTSIDE RECORDS SUMMARY | 2025-01-01 14:52 | XMS_ITS | Clinical Summary ---
Author Organization [facility] Address [address] [place] [address] Care Team Providers Care Restoration Silversmith Name Role Phone rAthur Marsh DO Primary Care Provider Source Comments [facility],non-owned Affiliates and Associated Physician Practices is amultiple site organization consisting of ambulatory clinics and hospital sitesin [place], [place], [place] and [place]. This disclosure is being madepursuant to the Care Everywhere program and may not contain all information available regarding this patient. Last updated 18.[facility] Social History Tobacco Use Types Packs/Day Years Used Date Smoking Tobacco: Never Assessed Comments Unknown Sex and Gender Information Value Date Recorded Sex Assigned at Not on file Legal Sex Female 11:17 PM CDT Gender Identity Not on file Sexual Orientation [...] VACCINE (1 - 2023-2 5 season) 2024 DEPRESSION SCREENING 08/16/2024 INFLUENZA VACCINE (Season Ended) 2025 06/28/2006, 06/19/2005 ZOSTER VACCINE (1 of 2) 2032 HIB VACCINE Aged Out No longer eligi ble based on patient's age to complete this topic HPV VACCINE Aged Out No longer eligi ble based on patient's age to complete this topic MENINGOCOCCAL (Group B) VACCINE SHARED DECISION-MAKING Aged Out No longer eligible based on patient's age to complete this topic MENINGOCOCCAL GROUPS A/C/Y/W VACCINE Aged Out No longer eligible b ased on patient's age to complete this topic PNEUMOCOCCAL VACCINE Aged Out No long er eligible based on patient's age to complete this topic Care Teams Restoration Silversmith Relationship Specialty Start Date End Date Arthur Marsh DO [address] [place] [id number] PCP - General 11/16/05
--- OUTSIDE RECORDS SUMMARY | 2025-01-01 14:52 | XMS_ITS | Clinical Summary ---
Author Organization [facility] Address [address] [place] [address] Care Team Providers [facility] Name Role Phone Chad Valencia MD Primary Care Provider + Allergies Active Allergy Reactions Criticality Noted Date Comments Adhesive Hives,Swelling Medium 10/16/2024 Paper tape Amoxicillin Rash Medium 07/07/2024 Penicillins Rash Medium 07/08/2024 Ceftriaxone Rash Medium 07/08/2024 Medications naproxen (NAPROSYN) 500 mg tablet Take 1 tablet (500 mg total) by mouth 2 (two) times a day with meals 14 tablet 4 Active methocarbamoL (ROBAXIN) 500 mg tablet Take 1 tablet (500 mg total) by mouth 2 (two) times a day as needed for muscle spasms 10 tablet 4 Active ALPRAZolam (XANAX) 1 mg tablet Take 1 tablet (1 mg total) by mouth daily as needed Active citalopram (CeleXA) 40 mg tablet Active escitalopram (LEXAPRO) 10 mg tablet Take 1 tablet (10 mg total) by mouth daily Active escitalopram (LEXAPRO) 20 mg tablet Take 1 tablet (20 mg total) by mouth daily Active estradioL (ESTRACE) 0.01 % (0.1 mg/gram) vaginal cream INSERT 1 GRAM IN VAGINA AND A PEA-SIZED AMOUNT TO VULVA/CLITORAL CARBALLO ONCE PER WEEK Active oxyBUTYnin XL (DITROPAN-XL) 5 mg 24 hr tablet Take 1 tablet every day by oral route. 4 Active sertraline (ZOLOFT) 100 mg tablet Active promethazine (PHENERGAN) 25 mg tablet Take 1 tablet every 12 hours by oral route as needed. 5 Active valACYclovir (VALTREX) 500 mg tablet Take 1 tablet (500 mg total) by mouth daily Active dextroamphetamin e-amphetamine (ADDERALL) 30 mg tablet Take 1 tablet (30 mg total) by mouth 2 (two) times a day Active ketorolac (TORADOL) 10 mg tablet Take 1 tablet (10 mg total) by mouth every 6 (six) hours as needed for pain Active traMADoL (ULTRAM) 50 mg tablet Take 1-2 tablets every 4-6 hours as needed for pain. 30 tablet 5 Active naloxone (NARCAN) 4 mg/actuation spray,non-aeroso l Administer 1 spray into affected nostril(s) as needed for opioid reversal or respiratory depression Call 911. Administer a single spray in one nostril. Repeat every 3 minutes as needed if no or minimal response. 1 each 5 Active traMADoL (ULTRAM) 50 mg tablet Take 1 tablet (50 mg total) by mouth every 8 (eight) hours as needed for pain for up to 30 doses 30 tablet 5 Active traMADoL (ULTRAM) 50 mg tabletIndication s:Closed dislocation of phalanx of hand, subsequent encounter,Left hand pain Take 1 tablet (50 mg total) by mouth every 8 (eight) hours as needed for pain 30 tablet 5 Active Active Problems Problem Noted Date Diagnosed Date Ganglion cyst of volar aspect of left wrist 11/14 Hand pain 10/17/2024 Closed dislocation of phalanx of hand, subsequen t encounter 10/12/2024 Left wrist pain 10/05/2024 Left hand pain 10/05/2024 Pain of finger of left hand 10/05/2024 Closed dislocation of phalanx of hand 10/05/2024 ADHD 09/23/2020 Overview (10/12/2024): Last Assessment & Plan: Condition: stable Follow up in: three months Encounters Date Type Department Care Team Description 2024 Telephone [facility] [address] [place] [phone] William Gold MD Advice Only 11/29/2024 10:55 AM CDT Ancillary Procedure [facility] [address] [place] [phone] 11/29/2024 10:00 AM CDT Office Visit [facility] [address] [place] [phone] William Gold MD Closed dislocation of phalanx of hand, subsequent encounter (Primary Dx); Ganglion cyst of volar aspect of left wrist; Acute pain of left wrist 11/22/2024 10:30 AM CDT Office Visit [facility] [address] [place] [phone] William Gold MD Closed dislocation of phalanx of hand, subsequent encounter; Left hand pain 11/15/2024 10:30 AM CDT Office Visit [facility] [address] [place] [phone] William Gold MD Closed dislocation of phalanx of hand, subsequent encounter (Primary Dx) 11/15/2024 9:15 AM CDT Ancillary Procedure [facility] [address] [place] [phone] 11/08/2024 8:30 AM CDT Office Visit [facility] [address] [place] [phone] William Gold MD Closed dislocation of phalanx of hand, subsequent encounter (Primary Dx); Left hand pain 10/30/2024 9:55 AM CDT Ancillary Procedure [facility] [address] [place] [phone] 10/30/2024 9:00 AM CDT Office Visit [facility] [address] [place] [phone] William Gold MD Closed dislocation of phalanx of hand, subsequent encounter (Primary Dx) 10/27/2024 Orders Only [facility] [address] [place] [phone] Terri Crowley, WALKER 10/20/2024 8:15 AM ENT NURSE Office Visit [facility] [address] [place] [phone] William Gold MD Closed dislocation of phalanx of hand, subsequent encounter (Primary Dx) 10/19/2024 Telephone [facility] Surgery [address] [place] [phone] William Gold MD 10/17/2024 11:00 AM ENT NURSE - 10/17/2024 12:00 PM ENT NURSE Surgery [facility] OR [address] [place] [address] William Gold MD LEFT LONG METACARPOPHALANGEAL OPEN REDUCTION WITH PINNING AND SOFT TISSUE TREATMENT INDICATED 10/17/2024 10:29 AM ENT NURSE Anesthesia Event [facility] OR [address] [place] [phone] Mohan Lua MD Boivin, James R., MD 10/17/2024 7:55 AM ENT NURSE - 10/19/2024 9:59 AM ENT NURSE Hospital Encounter [place] [address] [address] [place] [phone] William Gold MD Singh, Anjanya Devendra, MD Closed dislocation of phalanx of hand, subsequent encounter [S63.259D] (Primary Dx); Thrombocytopenia Discharge Disposition: Discharge to home or self care 10/12/2024 6:15 AM ENT NURSE - 10/12/2024 11:59 PM ENT NURSE Hospital Encounter [address] [phone] Left hand pain Discharge Disposition: Discharge to home or self care 10/09/2024 10:15 AM ENT NURSE Office Visit [facility] [address] [place] [address] [place] [phone] William Gold MD Pain of finger of left hand (Primary Dx); Closed dislocation of finger, subsequent encounter 10/05/2024 10:57 AM ENT NURSE - 10/05/2024 11:59 PM ENT NURSE Hospital Encounter [facility] MRI [address] [place] [phone] Left hand pain Discharge Disposition: Discharge to home or self care 10/04/2024 2:00 PM ENT NURSE Office Visit [facility] [address] [place] [phone] William Gold MD Left wrist pain (Primary Dx); Left hand pain; Pain of finger of left hand; Closed dislocation of finger, initial encounter 10/04/2024 1:00 PM ENT NURSE Ancillary Procedure [facility] [address] [place] [phone] from Last 3 Months Immunizations Immunization Administration Dates Next Due Tdap 07/08/2024 Surgical History Surgery Date Site/Laterality Comments BLADDER SURGERY Bladder Surgery - Sling procedure 2010 (Added by TW Conv) STOMACH SURGERY Gastric Surgery - (Added by Conv) PARTIAL HYSTERECTOMY UPPER GASTROINTESTINAL ENDOSCOPY BREAST SURGERY Bilateral augmentation FINGER SURGERY 10/17/2024 Left MCP OPEN REDUCTION WITH PINNING Medical History Medical History Date Comments ADHD (attention deficit hyperactivity disorder) 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 Migraines Awareness under anesthesia woke up during endoscopy Family History Medical History Relation Name Comments Arthritis Father Cancer Father Diabetes Father Heart disease Father Arthritis Mother Breast cancer Mother Family history of malignant neoplasm of breast - (Added by TW Conv) Cancer Mother Cervical cancer Mother Family histo ry of cervical cancer - (Added by TW Conv) Diabetes Mother Heart disease Mother Relation Name Status Comments Father Mother Social History Tobacco Use Types Packs/Day Years Used Date Smoking Tobacco: Never Smokeless Tobacco: Never Tobacco Cessation:Counseling Given: Not Answered AUDIT-C Answer Date Recorded Q1: How often [...] on file Legal Sex Female 4:17 AM ENT NURSE Gender Identity Not on file Sexual Orientation Not on file Obstetrics History Last Filed Vital Signs Vital Sign Reading Time Taken Comments Blood Pressure 133/107 10/19/2024 7:48 AM ENT NURSE Pulse 112 10/19/2024 8:00 AM ENT NURSE Temperature 36.8 C (98.2 F) 10/19/2024 7:48 AM ENT NURSE Respiratory Rate 18 10/19/2024 7:48 AM ENT NURSE Oxygen Saturation 98% 10/19/2024 7:48 AM ENT NURSE Inhaled Oxygen Concentration - - Weight 78.4 kg (172 lb 13.5 oz) 10/17/2024 8:11 PM ENT NURSE Height 165.1 cm (5' 5 ) 10/17/2024 8:11 PM ENT NURSE Body Mass Index 28.76 10/17/2024 8:11 PM ENT NURSE Plan of Treatment Health Maintenance Due Date Last Done Comments Depression Screening 1982 Varicella Vaccines (1 of 2 - 13+ 2-dose series) 12/28/1995 Regular Well Visit/Exam 18-64 2000 Breast Cancer Screening-Mammogram 10/19/2024 10/20/2023 Influenza Vaccine (Season Ended) 2025 08/29/2013, 07/04/2013 DTaP/Tdap/Td Vaccine (9 - Td or Tdap) 07/08/2034 07/08/2024, 01/29/2015, 01/29/2015, Additional history exists Hepatitis B Screening Completed 12/01/2000 , 04/26/2000, 11/20/1998 Hepatitis C Screening Completed 10/18/2024 HPV Vaccines Aged Out No longer eligi ble based on patient's age to complete this topic Pneumococcal vaccine <65 Aged Out No longer eligible based on patient's age to complete this topic Medical Devices Implanted 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 Device Identifier Shelf Expiration Date Model / Serial / Lot Bladder Sling Pelvis Breast Implants Bilateral: Breast [employer] K Wire Fix Trocar Point Smooth Sgl End Ss [id number] - [id number] Implanted:Qty: 1 on 10/17/2024 by William Gold MD at [facility] Left: Metacarpal [employer] [id number] NS / / [employer] Kiley .062in 9in Trocar Point One End Orthopedic Wire [id number] - [id number] Implanted:Qty: 1 on 10/17/2024 by William Gold MD at [facility] Left: Metacarpal [employer] [id number] NS / / Procedures Procedure Name Priority Date/Time Associated Diagnosis Comments XR HAND LEFT 3 OR MORE VIEWS Schedule Routine, Read Routine (OP Routine) 11/29/2024 11:17 AM CDT Closed dislocation of phalanx of hand, subsequent encounter XR HAND LEFT 3 OR MORE VIEWS Schedule Routine, Read Routine (OP Routine) 11/15/2024 9:49 AM CDT Closed dislocation of phalanx of hand, subsequent encounter XR HAND LEFT 3 OR MORE VIEWS Schedule Routine, Read Routine (OP Routine) 10/31/2024 5:57 AM CDT Closed dislocation of phalanx of hand, subsequent encounter ORTHO CASTING/SPLINTING Routine 10/20/2024 6:17 AM ENT NURSE Closed dislocation of phalanx of hand, subsequent encounter US LIVER IP Routine 10/19/2024 7:52 AM ENT NURSE EGFR Routine 10/19/2024 7:26 AM ENT NURSE DIFFERENTIAL AUTO Routine 10/19/2024 7:2 6 AM ENT NURSE COMPREHENSIVE METABOLIC PANEL Routine 10/19/2024 7:26 AM ENT NURSE CBC WITH AUTO DIFFERENTIAL Routine 10/19/2024 7:26 AM ENT NURSE FIBRINOGEN Routine 10/19/2024 7:26 AM ENT NURSE HAPTOGLOBIN Routine 10/19/2024 7:26 AM ENT NURSE RETICULOCYTES Routine 10/19/2024 7:26 AM ENT NURSE COPPER, SERUM Routine 10/19/2024 7:26 AM ENT NURSE ZINC Routine 10/19/2024 7:26 AM ENT NURSE VITAMIN B1 Routine 10/19/2024 7:26 AM ENT NURSE VITAMIN E Routine 10/19/2024 7:26 AM ENT NURSE VITAMIN D 25 HYDROXY Routine 10/19/2024 7:26 AM ENT NURSE FOLATE Routine 10/19/2024 7:26 AM ENT NURSE EGFR Routine 10/18/2024 12:41 PM ENT NURSE COMPREHENSIVE METABOLIC PANEL Routine 10/18/2024 12:41 PM ENT NURSE VITAMIN B12 Routine 10/18/2024 12:41 PM ENT NURSE HEPATITIS PANEL, ACUTE Routine 10/18/2024 12:41 PM ENT NURSE HIV 1/2 ANTIBODY PLUS P24 ANTIGEN Routine 10/18/2024 12:41 PM ENT NURSE DIFFERENTIAL AUTO Routine 10/18/2024 11: 04 AM ENT NURSE APTT Routine 10/18/2024 11:04 AM ENT NURSE PROTIME-INR Routine 10/18/2024 11:04 AM ENT NURSE FERRITIN Routine 10/18/2024 11:04 AM ENT NURSE IRON PROFILE W/ IBC Routine 10/18/2024 1 1:04 AM ENT NURSE CBC WITH AUTO DIFFERENTIAL Routine 10/18/2024 11:04 AM ENT NURSE EGFR Routine 10/17/2024 8:24 PM ENT NURSE CBC WITHOUT DIFFERENTIAL Routine 10/17/2024 8:24 PM ENT NURSE BASIC METABOLIC PANEL Routine 10/17/2024 8:24 PM ENT NURSE POCT GLUCOSE DEVICE Routine 10/17/2024 5 :10 PM ENT NURSE FL FLUOROSCOPY < 1 HOUR IP Routine 10/17/2024 11:17 AM ENT NURSE PA AN PROCEDURE PLACEHOLDER Routine 10/17/2024 10:40 AM ENT NURSE PA AN ELECTIVE SUPRAGLOTTIC AIRWAY Routine 10/17/2024 10:40 AM ENT NURSE OPEN REDUCTION INTERNAL FIXATION - METACARPAL 10/17/2024 10:29 AM ENT NURSE Closed dislocation of phalanx of hand, subsequent encounter Case Notes LT LONG MCP OR/PINNING Special Needs K-WIRES CT HAND LEFT WO CONTRAST Schedule Routine, Read Routine (OP Routine) 10/12/2024 6:42 AM ENT NURSE Left hand pain MRI HAND LEFT WO CONTRAST Schedule Routine, Read Routine (OP Routine) 10/05/2024 12:08 PM ENT NURSE Left hand pain DIAGNOSTIC MAMMOGRAM BILATERAL W EDITH W IMPLANTS Schedule Routine, Read Routine (OP Routine) 10/20/2023 8:41 AM ENT NURSE Lump of axilla, right from Last 3 Months or Most Recently Relevant to Health Maintenance Results * XR Hand Left 3 or More Views (11/29/2024 11:17 AM CDT) Anatomical Region Laterality Modality Upper Extremities, Hand Left Computed Radiography Narrative 11/29/2024 11:17 AM CDT AP lateral and oblique x-rays of the left hand on the mini C-arm today show a located and well aligned long finger metacarpophalangeal joint William Gold MD IMG XR PROCEDURES Final Result * XR Hand Left 3 or More Views (11/15/2024 9:49 AM CDT) Anatomical Region Laterality Modality Upper Extremities, Hand Left Computed Radiography Narrative 11/15/2024 9:49 AM CDT AP lateral and oblique x-rays of the left hand on the mini C-arm show postoperative changes across a well a line long finger metacarpophalangeal joint William Gold MD IMG XR PROCEDURES Final Result * XR Hand Left 3+ Vw (10/31/2024 5:57 AM CDT) Anatomical Region Laterality Modality Upper Extremities, Hand Left Computed Radiography Narrative 10/31/2024 5:57 AM CDT AP lateral and multiple oblique x-rays of the left hand on the mini C-arm show a reduced long finger metacarpophalangeal joint with hardware in place William Gold MD IMG XR PROCEDURES Final Result * Ortho Casting/Splinting Documentation (10/20/2024 6:17 AM ENT NURSE) Narrative William Gold MD - 10/20/2024 6:17 AM ENT NURSE William Gold MD 10/23/2024 6:17 AM Ortho Casting/Splinting Documentation Date/Time: 10/20/2024 6:17 AM Performed by: William Gold MD Authorized by: William Gold MD Sensation: Normal Wise/Sutures Removed: No Cast Applied: No Location: Wrist Wrist: L wrist Splint type: Short arm splint Supplies: Fiberglass, cotton stocking/sleeve and cotton Padding Number of fiberglass rolls used: 1 Capillary Refill: Normal Patient tolerance of procedure: Tolerated well, no immediate complications STATIC William Gold MD IN CLINIC/BEDSIDE ORDERA CHRISTOPH Final Result * US Liver (10/19/2024 7:52 AM ENT NURSE) Anatomical Region Laterality Modality Abdomen N/A Ultrasound 10/19/2024 10:2 3 AM ENT NURSE Narrative 10/19/2024 10:24 AM ENT NURSE EXAM DESCRIPTION: US LIVER REASON FOR STUDY: abnormal hepatic function tests TECHNIQUE: Ultrasound of the right upper quadrant of the abdomen was performed with grayscale and color Doppler. COMPARISON: None. FINDINGS: PANCREAS: Visualized portions of the pancreas are within normal limits. Portions of the pancreatic body and tail are obscured due to bowel gas. LIVER: The liver is increased in echogenicity. Liver measures 17.8 cm. No focal hepatic lesions are seen. Antegrade direction of flow shown in the main portal vein. GALLBLADDER: Surgically absent. BILIARY: There is no intrahepatic biliary ductal dilatation. The common bile duct measures 0.8 cm in diameter. RIGHT KIDNEY: Right kidney is 10.1 cm in length. There is no hydronephrosis. The echogenicity is normal. OTHER: No other significant finding. IMPRESSION: Hepatic steatosis. Cholecystectomy. THIS IS AN ELECTRONICALLY VERIFIED FINAL REPORT 10/19/2024 10:24 AM - Electronically signed by Lj Hill M.D. CH: ILDEFONSO Report ID: [id number] Reading Location: [id number] Procedure Note Lj Hill Jr., MD - 10/19/2024 EXAM DESCRIPTION: US LIVER REASON FOR STUDY: abnormal hepatic function tests TECHNIQUE: Ultrasound of the right upper quadrant of the abdomen wasperformed with grayscale and color Doppler. COMPARISON: None. FINDINGS: PANCREAS: Visualized portions of the pancreas are within normal limits. Portions of the pancreatic body and tail are obscured due to bowel gas. LIVER: The liver is increased in echogenicity. Liver measures 17.8 cm.No focal hepatic lesions are seen. Antegrade direction of flow shown in themain portal vein. GALLBLADDER: Surgically absent. BILIARY: There is no intrahepatic biliary ductal dilatation. The commonbile duct measures 0.8 cm in diameter. RIGHT KIDNEY: Right kidney is 10.1 cm in length. There is nohydronephrosis. The echogenicity is normal. OTHER: No other significant finding. IMPRESSION: Hepatic steatosis. Cholecystectomy. THIS IS AN ELECTRONICALLY VERIFIED FINAL REPORT 10/19/2024 10:24 AM - Electronically signed by Lj Hill M.D. CH: Report ID: [id number] Reading Location: [place] [address] us Debbie Sevilla MD IMG US PROCEDURES Antonette l Result * eGFR (10/19/2024 7:26 AM ENT NURSE) eGFR >90 >=60 mL/min/1. 73 m2 Comment: Interpretive Data Reference Interval Normal >/= 90 mL/min/1.73m2 Mildly decreased* 60 - 89 mL/min/1.73m2 Mildly to moderately decreased 45 - 59 mL/min/1.73m2 Moderately to severely decreased 30 - 44 mL/min/1.73m2 Severely decreased 15 - 29 mL/min/1.73m2 Kidney Failure < 15 mL/min/1.73m2 *Relative to young adult level Estimated glomerular filtration rate is determined by the 2020 CKD-EPI equation recommended by the National Kidney Foundation (A Unifying Approach to GFR Estimation: Recommendations of the NKF-ASK Task Force on Reassessing the Inclusion of Race in Diagnosing Kidney Disease, JASN 202). The CKD-EPI equation should not be used for patients with unstable renal function and has not been validated in children and those over 70. Current interpretive data was last reviewed 2021. Testing performed by: [facility], [address] [place] [address]., [id number] Blood 10/19/2024 7:26 AM ENT NURSE 10/19/2024 8:23 AM ENT NURSE us Debbie Sevilla MD LAB BLOOD ORDERABLES F inal Result [facility] [address] [facility] [place] [address] * Differential, auto (10/19/2024 7:26 AM ENT NURSE) Neutrophil abs 2.1 1.5 - 6.5 K/cumm Comment:Testing performed by : [address] [address] Imm gran abs 0.0 0.0 - 0.1 K/cumm [facility] Comment:Testing performed by : [address] [address] Lymphocyte abs 1.0 0.8 - 3.3 K/cumm [facility] Comment:Testing performed by : [address] [address] Monocyte abs 0.3 0.2 - 0.8 K/cumm [facility] Comment:Testing performed by : [address] [address] Eosinophil abs 0.1 0.0 - 0.5 K/cumm [facility] Comment:Testing performed by : [address] [address] Basophil abs 0.0 0.0 - 0.1 K/cumm [facility] Comment:Testing performed by : [address] [address] Neutrophil pct 60.3 % [facility] Comment: Interpretive Data Percent cell count reference ranges are not reported, since discordance with absolute values may lead to misinterpretation of CBC data. Current Interpretive Data was last revised on 2017. Testing performed by: [address] [address] Imm gran pct 0.9 % [facility] Comment: Interpretive Data Percent cell count reference ranges are not reported, since discordance with absolute values may lead to misinterpretation of CBC data. Current Interpretive Data was last revised on 2017. Testing performed by: [address] [address] Lymphocyte pct 28.2 % [facility] Comment: Interpretive Data Percent cell count reference ranges are not reported, since discordance with absolute values may lead to misinterpretation of CBC data. Current Interpretive Data was last revised on 2017. Testing performed by: [address] [address] Monocyte pct 7.4 % [facility] Comment: Interpretive Data Percent cell count reference ranges are not reported, since discordance with absolute values may lead to misinterpretation of CBC data. Current Interpretive Data was last revised on 2017. Testing performed by: [address] [address] Eosinophil pct 2.6 % [facility] Comment: Interpretive Data Percent cell count reference ranges are not reported, since discordance with absolute values may lead to misinterpretation of CBC data. Current Interpretive Data was last revised on 2017. Testing performed by: [address] [address] Basophil pct 0.6 % [facility] Comment: Interpretive Data Percent cell count reference ranges are not reported, since discordance with absolute values may lead to misinterpretation of CBC data. Current Interpretive Data was last revised on 2017. Testing performed by: [address] [address] Blood 10/19/2024 7:26 AM ENT NURSE 10/19/2024 8:21 AM ENT NURSE us Debbie Sevilla MD LAB BLOOD ORDERABLES F inal Result [facility] [address] [facility] [place] [address] * (ABNORMAL) CBC with auto differential (10/19/2024 7:26 AM ENT NURSE) WBC 3.5(L) 3.8 - 9.9 K/cumm Comment:Testing performed by : [address] [address] Hgb 12.6 11.9 - 15.5 g/dL RANDEE Comment:Testing performed by : [address] [address] Hct 38.6 35.6 - 45.5 % RAN[facility]E Comment:Testing performed by : [address] [address] Plt 97(L) 150 - 400 K/cumm RAN[facility]E Comment:Testing performed by : [address] [address] MPV 9.6 9.1 - 12.3 fL RANDEE JIMÉNEZ Comment:Testing performed by : [address], [address] RBC 4.32 3.90 - 5.20 M/cumm RANDEE Comment:Testing performed by : [address], [address] MCV 89.4 81.3 - 96.4 fL RANDEE Comment:Testing performed by : [address], [address] MCH 29.2 27.1 - 33.3 pg RANDEE Comment:Testing performed by : [address], [address] MCHC 32.6 32.3 - 35.7 g/dL RANDEE Comment:Testing performed by : [address], [address] RDW CV 16.0(H) 11.1 - 14.9 % RANDEE Comment:Testing performed by : [address], [address] RDW SD 51.9(H) 35.7 - 48.1 fL RAN[facility]E Comment:Testing performed by : [address], [address] NRBC abs 0.00 0.00 - 0.01 K/cumm RAN[facility]E Comment:Testing performed by : [address], [address] Blood 10/19/2024 7:26 AM ENT NURSE 10/19/2024 8:21 AM ENT NURSE us Debbie Sevilla MD LAB BLOOD ORDERABLES F inal Result [facility] [address] [facility] [place] [address] * Copper, serum (10/19/2024 7:26 AM ENT NURSE) Copper 93 77 - 206 mcg/dL [facility] Comment: ADDITIONAL INFORMATION This test was developed and its performance characteristics determined by [facility] in a manner consistent with CLIA requirements. This test has not been cleared or approved by the U.S. Food and Drug Administration. Test Performed by: [facility] [address] [place] [address] Slasher Machine Operator: Sae Garber Ph.D.; CLIA# [id number] Testing performed by: [facility], [address] [place] [address]., [address] Blood 10/19/2024 7:26 AM ENT NURSE 10/19/2024 8:23 AM ENT NURSE us Debbie Sevilla MD LAB BLOOD ORDERABLES F inal Result [facility] [address] [facility] Department of Laboratories [place], [place] [id number] [place] ref Lab * Zinc (10/19/2024 7:26 AM ENT NURSE) Perfo [id number]|2025-01-01 14:53:00|2025-01-01 14:52:00|XMS_ITS|BKG DAEMON|External Medical Summaries|[id number]|" Referral Summary Created on: January 01, 2025 Brittany Dill : 1980 Sex: Female Author Organization [facility] iltn Address [address] [place] [address] Care Team Providers [facility] Name Role Phone Chad Valencia MD Primary Care Provider + Encounters Date Type Department Care Team Description 2024 Telephone [facility] [address] [place] [phone] William Gold MD Advice Only 11/29/2024 10:55 AM CDT Ancillary Procedure [facility] [address] [place] [phone] 11/29/2024 10:00 AM CDT Office Visit [facility] [address] [place] [phone] William Gold MD Closed dislocation of phalanx of hand, subsequent encounter (Primary Dx); Ganglion cyst of volar aspect of left wrist; Acute pain of left wrist 11/22/2024 10:30 AM CDT Office Visit [facility] [address] [place] [phone] William Gold MD Closed dislocation of phalanx of hand, subsequent encounter; Left hand pain 11/15/2024 9:15 AM CDT Ancillary Procedure [facility] [address] [place] [phone] 11/15/2024 10:30 AM CDT Office Visit [facility] [address] [place] [phone] William Gold MD Closed dislocation of phalanx of hand, subsequent encounter (Primary Dx) 11/08/2024 8:30 AM CDT Office Visit [facility] [address] [place] [phone] William Gold MD Closed dislocation of phalanx of hand, subsequent encounter (Primary Dx); Left hand pain 10/30/2024 9:55 AM CDT Ancillary Procedure [facility] [address] [place] [phone] 10/30/2024 9:00 AM CDT Office Visit [facility] [address] [place] [phone] William Gold MD Closed dislocation of phalanx of hand, subsequent encounter (Primary Dx) 10/27/2024 Orders Only [facility] [address] [place] [address] [address] [place] [phone] Terri Crowley, WALKER 10/20/2024 8:15 AM ENT NURSE Office Visit [facility] [address] [place] [address] [address] [place] [phone] William Gold MD Closed dislocation of phalanx of hand, subsequent encounter (Primary Dx) 10/19/2024 Telephone [facility] [address] [place] [address] [address] [place] [phone] William Gold MD 10/17/2024 7:55 AM ENT NURSE - 10/19/2024 9:59 AM ENT NURSE Hospital Encounter [place] [address] [address] [place] [phone] William Gold MD Singh, Anjanya Devendra, MD Closed dislocation of phalanx of hand, subsequent encounter [S63.259D] (Primary Dx); Thrombocytopenia Discharge Disposition: Discharge to home or self care 10/17/2024 11:00 AM ENT NURSE - 10/17/2024 12:00 PM ENT NURSE Surgery [facility] OR [address] [place] [phone] William Gold MD LEFT LONG METACARPOPHALANGEAL OPEN REDUCTION WITH PINNING AND SOFT TISSUE TREATMENT INDICATED 10/17/2024 10:29 AM ENT NURSE Anesthesia Event [facility] OR [address] [place] [address] Mohan Lua MD Boivin, James R., MD 10/12/2024 6:15 AM ENT NURSE - 10/12/2024 11:59 PM ENT NURSE Hospital Encounter [facility] [address] [place] [address] Left hand pain Discharge Disposition: Discharge to home or self care 10/09/2024 10:15 AM ENT NURSE Office Visit [facility] [address] [place] [phone] William Gold MD Pain of finger of left hand (Primary Dx); Closed dislocation of finger, subsequent encounter 10/05/2024 10:57 AM ENT NURSE - 10/05/2024 11:59 PM ENT NURSE Hospital Encounter [facility] MRI [address] [place] [address] Left hand pain Discharge Disposition: Discharge to home or self care 10/04/2024 1:00 PM ENT NURSE Ancillary Procedure [facility] [address] [place] [phone] 10/04/2024 2:00 PM ENT NURSE Office Visit [facility] [address] [place] [phone] William Gold MD Left wrist pain (Primary Dx); Left hand pain; Pain of finger of left hand; Closed dislocation of finger, initial encounter from Last 3 Months Allergies Active Allergy Reactions Criticality Noted Date Comments Adhesive Hives,Swelling Medium 10/16/2024 Paper tape Amoxicillin Rash Medium 07/07/2024 Penicillins Rash Medium 07/08/2024 Ceftriaxone Rash Medium 07/08/2024 Medications naproxen (NAPROSYN) 500 mg tablet Take 1 tablet (500 mg total) by mouth 2 (two) times a day with meals 14 tablet 4 Active methocarbamoL (ROBAXIN) 500 mg tablet Take 1 tablet (500 mg total) by mouth 2 (two) times a day as needed for muscle spasms 10 tablet 4 Active ALPRAZolam (XANAX) 1 mg tablet Take 1 tablet (1 mg total) by mouth daily as needed Active citalopram (CeleXA) 40 mg tablet Active escitalopram (LEXAPRO) 10 mg tablet Take 1 tablet (10 mg total) by mouth daily Active escitalopram (LEXAPRO) 20 mg tablet Take 1 tablet (20 mg total) by mouth daily Active estradioL (ESTRACE) 0.01 % (0.1 mg/gram) vaginal cream INSERT 1 GRAM IN VAGINA AND A PEA-SIZED AMOUNT TO VULVA/CLITORAL CARBALLO ONCE PER WEEK Active oxyBUTYnin XL (DITROPAN-XL) 5 mg 24 hr tablet Take 1 tablet every day by oral route. 4 Active sertraline (ZOLOFT) 100 mg tablet Active promethazine (PHENERGAN) 25 mg tablet Take 1 tablet every 12 hours by oral route as needed. 5 Active valACYclovir (VALTREX) 500 mg tablet Take 1 tablet (500 mg total) by mouth daily Active dextroamphetamin e-amphetamine (ADDERALL) 30 mg tablet Take 1 tablet (30 mg total) by mouth 2 (two) times a day Active ketorolac (TORADOL) 10 mg tablet Take 1 tablet (10 mg total) by mouth every 6 (six) hours as needed for pain Active traMADoL (ULTRAM) 50 mg tablet Take 1-2 tablets every 4-6 hours as needed for pain. 30 tablet 5 Active naloxone (NARCAN) 4 mg/actuation spray,non-aeroso l Administer 1 spray into affected nostril(s) as needed for opioid reversal or respiratory depression Call 911. Administer a single spray in one nostril. Repeat every 3 minutes as needed if no or minimal response. 1 each 5 Active traMADoL (ULTRAM) 50 mg tablet Take 1 tablet (50 mg total) by mouth every 8 (eight) hours as needed for pain for up to 30 doses 30 tablet 5 Active traMADoL (ULTRAM) 50 mg tabletIndication s:Closed dislocation of phalanx of hand, subsequent encounter,Left hand pain Take 1 tablet (50 mg total) by mouth every 8 (eight) hours as needed for pain 30 tablet 5 Active Active Problems Problem Noted Date Diagnosed Date Ganglion cyst of volar aspect of left wrist 11/14 Hand pain 10/17/2024 Closed dislocation of phalanx of hand, subsequen t encounter 10/12/2024 Left wrist pain 10/05/2024 Left hand pain 10/05/2024 Pain of finger of left hand 10/05/2024 Closed dislocation of phalanx of hand 10/05/2024 ADHD 09/23/2020 Overview (10/12/2024): Last Assessment & Plan: Condition: stable Follow up in: three months Immunizations Immunization Administration Dates Next Due Tdap 07/08/2024 Social History Tobacco Use Types Packs/Day Years Used Date Smoking Tobacco: Never Smokeless Tobacco: Never Tobacco Cessation:Counseling Given: Not Answered AUDIT-C Answer Date Recorded Q1: How often [...] on file Legal Sex Female 4:17 AM ENT NURSE Gender Identity Not on file Sexual Orientation Not on file Last Filed Vital Signs Vital Sign Reading Time Taken Comments Blood Pressure 133/107 10/19/2024 7:48 AM ENT NURSE Pulse 112 10/19/2024 8:00 AM ENT NURSE Temperature 36.8 C (98.2 F) 10/19/2024 7:48 AM ENT NURSE Respiratory Rate 18 10/19/2024 7:48 AM ENT NURSE Oxygen Saturation 98% 10/19/2024 7:48 AM ENT NURSE Inhaled Oxygen Concentration - - Weight 78.4 kg (172 lb 13.5 oz) 10/17/2024 8:11 PM ENT NURSE Height 165.1 cm (5' 5 ) 10/17/2024 8:11 PM ENT NURSE Body Mass Index 28.76 10/17/2024 8:11 PM ENT NURSE Plan of Treatment Not on file Medical Devices Implanted 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 Device Identifier Shelf Expiration Date Model / Serial / Lot Bladder Sling Pelvis Breast Implants Bilateral: Breast [employer] K Wire Fix Trocar Point Smooth Sgl End Ss [id number] - [id number] Implanted:Qty: 1 on 10/17/2024 by William Gold MD at [facility] Left: Metacarpal [employer] [id number] NS / / [employer] Kiley .062in 9in Trocar Point One End Orthopedic Wire [id number] - [id number] Implanted:Qty: 1 on 10/17/2024 by William Gold MD at [facility] Left: Metacarpal [employer] [id number] NS / / Procedures Procedure Name Priority Date/Time Associated Diagnosis Comments XR HAND LEFT 3 OR MORE VIEWS Schedule Routine, Read Routine (OP Routine) 11/29/2024 11:17 AM CDT Closed dislocation of phalanx of hand, subsequent encounter XR HAND LEFT 3 OR MORE VIEWS Schedule Routine, Read Routine (OP Routine) 11/15/2024 9:49 AM CDT Closed dislocation of phalanx of hand, subsequent encounter XR HAND LEFT 3 OR MORE VIEWS Schedule Routine, Read Routine (OP Routine) 10/31/2024 5:57 AM CDT Closed dislocation of phalanx of hand, subsequent encounter ORTHO CASTING/SPLINTING Routine 10/20/2024 6:17 AM ENT NURSE Closed dislocation of phalanx of hand, subsequent encounter US LIVER IP Routine 10/19/2024 7:52 AM ENT NURSE EGFR Routine 10/19/2024 7:26 AM ENT NURSE DIFFERENTIAL AUTO Routine 10/19/2024 7:2 6 AM ENT NURSE COMPREHENSIVE METABOLIC PANEL Routine 10/19/2024 7:26 AM ENT NURSE CBC WITH AUTO DIFFERENTIAL Routine 10/19/2024 7:26 AM ENT NURSE FIBRINOGEN Routine 10/19/2024 7:26 AM ENT NURSE HAPTOGLOBIN Routine 10/19/2024 7:26 AM ENT NURSE RETICULOCYTES Routine 10/19/2024 7:26 AM ENT NURSE COPPER, SERUM Routine 10/19/2024 7:26 AM ENT NURSE ZINC Routine 10/19/2024 7:26 AM ENT NURSE VITAMIN B1 Routine 10/19/2024 7:26 AM ENT NURSE VITAMIN E Routine 10/19/2024 7:26 AM ENT NURSE VITAMIN D 25 HYDROXY Routine 10/19/2024 7:26 AM ENT NURSE FOLATE Routine 10/19/2024 7:26 AM ENT NURSE EGFR Routine 10/18/2024 12:41 PM ENT NURSE COMPREHENSIVE METABOLIC PANEL Routine 10/18/2024 12:41 PM ENT NURSE VITAMIN B12 Routine 10/18/2024 12:41 PM ENT NURSE HEPATITIS PANEL, ACUTE Routine 10/18/2024 12:41 PM ENT NURSE HIV 1/2 ANTIBODY PLUS P24 ANTIGEN Routine 10/18/2024 12:41 PM ENT NURSE DIFFERENTIAL AUTO Routine 10/18/2024 11: 04 AM ENT NURSE APTT Routine 10/18/2024 11:04 AM ENT NURSE PROTIME-INR Routine 10/18/2024 11:04 AM ENT NURSE FERRITIN Routine 10/18/2024 11:04 AM ENT NURSE IRON PROFILE W/ IBC Routine 10/18/2024 1 1:04 AM ENT NURSE CBC WITH AUTO DIFFERENTIAL Routine 10/18/2024 11:04 AM ENT NURSE EGFR Routine 10/17/2024 8:24 PM ENT NURSE CBC WITHOUT DIFFERENTIAL Routine 10/17/2024 8:24 PM ENT NURSE BASIC METABOLIC PANEL Routine 10/17/2024 8:24 PM ENT NURSE POCT GLUCOSE DEVICE Routine 10/17/2024 5 :10 PM ENT NURSE FL FLUOROSCOPY < 1 HOUR IP Routine 10/17/2024 11:17 AM ENT NURSE PA AN PROCEDURE PLACEHOLDER Routine 10/17/2024 10:40 AM ENT NURSE PA AN ELECTIVE SUPRAGLOTTIC AIRWAY Routine 10/17/2024 10:40 AM ENT NURSE OPEN REDUCTION INTERNAL FIXATION - METACARPAL 10/17/2024 10:29 AM ENT NURSE Closed dislocation of phalanx of hand, subsequent encounter Case Notes LT LONG MCP OR/PINNING Special Needs K-WIRES CT HAND LEFT WO CONTRAST Schedule Routine, Read Routine (OP Routine) 10/12/2024 6:42 AM ENT NURSE Left hand pain MRI HAND LEFT WO CONTRAST Schedule Routine, Read Routine (OP Routine) 10/05/2024 12:08 PM ENT NURSE Left hand pain DIAGNOSTIC MAMMOGRAM BILATERAL W EDITH W IMPLANTS Schedule Routine, Read Routine (OP Routine) 10/20/2023 8:41 AM ENT NURSE Lump of axilla, right from Last 3 Months or Most Recently Relevant to Health Maintenance Results * XR Hand Left 3 or More Views (11/29/2024 11:17 AM CDT) Anatomical Region Laterality Modality Upper Extremities, Hand Left Computed Radiography Narrative 11/29/2024 11:17 AM CDT AP lateral and oblique x-rays of the left hand on the mini C-arm today show a located and well aligned long finger metacarpophalangeal joint William Gold MD IMG XR PROCEDURES Final Result * XR Hand Left 3 or More Views (11/15/2024 9:49 AM CDT) Anatomical Region Laterality Modality Upper Extremities, Hand Left Computed Radiography Narrative 11/15/2024 9:49 AM CDT AP lateral and oblique x-rays of the left hand on the mini C-arm show postoperative changes across a well a line long finger metacarpophalangeal joint William Gold MD IMG XR PROCEDURES Final Result * XR Hand Left 3+ Vw (10/31/2024 5:57 AM CDT) Anatomical Region Laterality Modality Upper Extremities, Hand Left Computed Radiography Narrative 10/31/2024 5:57 AM CDT AP lateral and multiple oblique x-rays of the left hand on the mini C-arm show a reduced long finger metacarpophalangeal joint with hardware in place William Gold MD IMG XR PROCEDURES Final Result * Ortho Casting/Splinting Documentation (10/20/2024 6:17 AM ENT NURSE) Narrative William Gold MD - 10/20/2024 6:17 AM ENT NURSE William Gold MD 10/23/2024 6:17 AM Ortho Casting/Splinting Documentation Date/Time: 10/20/2024 6:17 AM Performed by: William Gold MD Authorized by: William Gold MD Sensation: Normal Wise/Sutures Removed: No Cast Applied: No Location: Wrist Wrist: L wrist Splint type: Short arm splint Supplies: Fiberglass, cotton stocking/sleeve and cotton Padding Number of fiberglass rolls used: 1 Capillary Refill: Normal Patient tolerance of procedure: Tolerated well, no immediate complications STATIC us William Gold MD IN CLINIC/BEDSIDE ORDERA BLES Final Result * US Liver (10/19/2024 7:52 AM ENT NURSE) Anatomical Region Laterality Modality Abdomen N/A Ultrasound 10/19/2024 10:2 3 AM ENT NURSE Narrative 10/19/2024 10:24 AM ENT NURSE EXAM DESCRIPTION: US LIVER REASON FOR STUDY: abnormal hepatic function tests TECHNIQUE: Ultrasound of the right upper quadrant of the abdomen was performed with grayscale and color Doppler. COMPARISON: None. FINDINGS: PANCREAS: Visualized portions of the pancreas are within normal limits. Portions of the pancreatic body and tail are obscured due to bowel gas. LIVER: The liver is increased in echogenicity. Liver measures 17.8 cm. No focal hepatic lesions are seen. Antegrade direction of flow shown in the main portal vein. GALLBLADDER: Surgically absent. BILIARY: There is no intrahepatic biliary ductal dilatation. The common bile duct measures 0.8 cm in diameter. RIGHT KIDNEY: Right kidney is 10.1 cm in length. There is no hydronephrosis. The echogenicity is normal. OTHER: No other significant finding. IMPRESSION: Hepatic steatosis. Cholecystectomy. THIS IS AN ELECTRONICALLY VERIFIED FINAL REPORT 10/19/2024 10:24 AM - Electronically signed by Lj Hill M.D. CH: ILDEFONSO Report ID: [id number] Reading Location: [id number] Procedure Note jL Hill Jr., MD - 10/19/2024 EXAM DESCRIPTION: US LIVER REASON FOR STUDY: abnormal hepatic function tests TECHNIQUE: Ultrasound of the right upper quadrant of the abdomen wasperformed with grayscale and color Doppler. COMPARISON: None. FINDINGS: PANCREAS: Visualized portions of the pancreas are within normal limits. Portions of the pancreatic body and tail are obscured due to bowel gas. LIVER: The liver is increased in echogenicity. Liver measures 17.8 cm.No focal hepatic lesions are seen. Antegrade direction of flow shown in themain portal vein. GALLBLADDER: Surgically absent. BILIARY: There is no intrahepatic biliary ductal dilatation. The commonbile duct measures 0.8 cm in diameter. RIGHT KIDNEY: Right kidney is 10.1 cm in length. There is nohydronephrosis. The echogenicity is normal. OTHER: No other significant finding. IMPRESSION: Hepatic steatosis. Cholecystectomy. THIS IS AN ELECTRONICALLY VERIFIED FINAL REPORT 10/19/2024 10:24 AM - Electronically signed by Lj Hill M.D. CH: Report ID: [id number] Reading Location: [place] [address] us Debbie Sevilla MD IMG US PROCEDURES Antonette l Result * eGFR (10/19/2024 7:26 AM ENT NURSE) eGFR >90 >=60 mL/min/1. 73 m2 Comment: Interpretive Data Reference Interval Normal >/= 90 mL/min/1.73m2 Mildly decreased* 60 - 89 mL/min/1.73m2 Mildly to moderately decreased 45 - 59 mL/min/1.73m2 Moderately to severely decreased 30 - 44 mL/min/1.73m2 Severely decreased 15 - 29 mL/min/1.73m2 Kidney Failure < 15 mL/min/1.73m2 *Relative to young adult level Estimated glomerular filtration rate is determined by the 2020 CKD-EPI equation recommended by the National Kidney Foundation (A Unifying Approach to GFR Estimation: Recommendations of the NKF-ASK Task Force on Reassessing the Inclusion of Race in Diagnosing Kidney Disease, JASN 2020). The CKD-EPI equation should not be used for patients with unstable renal function and has not been validated in children and those over 70. Current interpretive data was last reviewed 2021. Testing performed by: [facility], [address] [place] [address], [place]., [address] Blood 10/19/2024 7:26 AM ENT NURSE 10/19/2024 8:23 AM ENT NURSE us Debbie Sevilla MD LAB BLOOD ORDERABLES F inal Result [facility] [address] [facility] [place] [address] * Differential, auto (10/19/2024 7:26 AM ENT NURSE) Neutrophil abs 2.1 1.5 - 6.5 K/cumm Comment:Testing performed by : [address] [address] Imm gran abs 0.0 0.0 - 0.1 K/cumm RANDEE Comment:Testing performed by : [address] [address] Lymphocyte abs 1.0 0.8 - 3.3 K/cumm RANDEE Comment:Testing performed by : [address] [address] Monocyte abs 0.3 0.2 - 0.8 K/cumm RANDEE Comment:Testing performed by : [address] [address] Eosinophil abs 0.1 0.0 - 0.5 K/cumm RANDEE Comment:Testing performed by : [address] [address] Basophil abs 0.0 0.0 - 0.1 K/cumm RANDEE Comment:Testing performed by : [address] [address] Neutrophil pct 60.3 % RANDEE Comment: Interpretive Data Percent cell count reference ranges are not reported, since discordance with absolute values may lead to misinterpretation of CBC data. Current Interpretive Data was last revised on 2017. Testing performed by: [address] [address] Imm gran pct 0.9 % RANDEE Comment: Interpretive Data Percent cell count reference ranges are not reported, since discordance with absolute values may lead to misinterpretation of CBC data. Current Interpretive Data was last revised on 2017. Testing performed by: [address] [address] Lymphocyte pct 28.2 % RANDEE Comment: Interpretive Data Percent cell count reference ranges are not reported, since discordance with absolute values may lead to misinterpretation of CBC data. Current Interpretive Data was last revised on 2017. Testing performed by: [address] [address] Monocyte pct 7.4 % RANDEE Comment: Interpretive Data Percent cell count reference ranges are not reported, since discordance with absolute values may lead to misinterpretation of CBC data. Current Interpretive Data was last revised on 2017. Testing performed by: [address] [address] Eosinophil pct 2.6 % RANDEE Comment: Interpretive Data Percent cell count reference ranges are not reported, since discordance with absolute values may lead to misinterpretation of CBC data. Current Interpretive Data was last revised on 2017. Testing performed by: [address] [address] Basophil pct 0.6 % RANDEE Comment: Interpretive Data Percent cell count reference ranges are not reported, since discordance with absolute values may lead to misinterpretation of CBC data. Current Interpretive Data was last revised on 2017. Testing performed by: [address] [address] Blood 10/19/2024 7:26 AM ENT NURSE 10/19/2024 8:21 AM ENT NURSE us Debbie Sevilla MD LAB BLOOD ORDERABLES F inal Result [facility] [address] [facility] [place] [address] * (ABNORMAL) CBC with auto differential (10/19/2024 7:26 AM ENT NURSE) WBC 3.5(L) 3.8 - 9.9 K/cumm Comment:Testing performed by : [address] [address] Hgb 12.6 11.9 - 15.5 g/dL RANDEE JIMÉNEZ Comment:Testing performed by : [address] [address] Hct 38.6 35.6 - 45.5 % RANDEE Comment:Testing performed by : [address] [address] Plt 97(L) 150 - 400 K/cumm RANDEE Comment:Testing performed by : [address] [address] MPV 9.6 9.1 - 12.3 fL RANDEE JIMÉNEZ Comment:Testing performed by : [address], [address] RBC 4.32 3.90 - 5.20 M/cumm RANDEE Comment:Testing performed by : [address] [address] MCV 89.4 81.3 - 96.4 fL RANDEE Comment:Testing performed by : [address] [address] MCH 29.2 27.1 - 33.3 pg RANDEE Comment:Testing performed by : [address], [address] MCHC 32.6 32.3 - 35.7 g/dL RANDEE Comment:Testing performed by : [address] [address] RDW CV 16.0(H) 11.1 - 14.9 % RANDEE Comment:Testing performed by : [address], [address] RDW SD 51.9(H) 35.7 - 48.1 fL RANDEE Comment:Testing performed by : [address], [address] NRBC abs 0.00 0.00 - 0.01 K/cumm RANDEE Comment:Testing performed by : [address], [address] Blood 10/19/2024 7:26 AM ENT NURSE 10/19/2024 8:21 AM ENT NURSE us Debbie Sevilla MD LAB BLOOD ORDERABLES F inal Result RAN[facility] [place] [address] * Copper, serum (10/19/2024 7:26 AM ENT NURSE) Copper 93 77 - 206 mcg/dL [facility] Comment: ADDITIONAL INFORMATION This test was developed and its performance characteristics determined by [facility] in a manner consistent with CLIA requirements. This test has not been cleared or approved by the U.S. Food and Drug Administration. Test Performed by: [facility] [place] [address] Slasher Machine Operator: Sae Garber Ph.D.; CLIA# [id number] Testing performed by: [address], [address] Blood 10/19/2024 7:26 AM ENT NURSE 10/19/2024 8:23 AM ENT NURSE us Debbie Sevilla MD LAB BLOOD ORDERABLES F inal Result [facility] [address] [facility] Department [place] [address] [facility] * Zinc (10/19/2024 7:26 AM ENT NURSE) Zinc 68 60 - 106 mcg/dL [facility] Comment: ADDITIONAL INFORMATION This test was developed and its performance characteristics determined by [facility] in a manner consistent with CLIA requirements. This test has not been cleared or approved by the U.S. Food and Drug Administration. Test Performed by: [facility] [place] [id number] Slasher Machine Operator: Sae Garber Ph.D.; CLIA# [id number] Testing performed by: [address] [address] Blood 10/19/2024 7:26 AM ENT NURSE 10/19/2024 8:23 AM ENT NURSE Debbie Sevilla MD LAB BLOOD ORDERABLES F inal Result RANDEE [address] [place] [address] [facility] * Vitamin D 25 hydroxy (10/19/2024 7:26 AM ENT NURSE) [facility] Vitamin D 25-OH 70.0 30.0 - 80.0 ng/mL Blood 10/19/2024 7:26 AM ENT NURSE 10/19/2024 10:24 AM ENT NURSE Debbie Sevilla MD LAB BLOOD ORDERABLES F inal Result Performing Organization Address [facility] Co de Phone Number Y[address] [address] * Fibrinogen (10/19/2024 7:26 AM ENT NURSE) [facility] Fibrinogen 344 170 - 400 mg/dL Comment:Testing perf
--- OUTSIDE RECORDS SUMMARY | 2025-01-01 14:52 | XMS_ITS | Clinical Summary ---
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
--- NOTE | 2025-01-01 15:17 | ED_ITS ---
HPI - General Adult General Chief complaint: Unspecified <Ailyn Fernandez PA-C - Last Filed: 01/03/25 17:58> Stated complaint: Having trouble swallowing x 1 hour <Ailyn Fernandez PA-C - Last Filed: 01/03/25 17:58> Time Seen by Provider: 01/01/25 15:17 <Ailyn Fernandez PA-C - Last Filed: 01/03/25 17:58> Focused HPI: This is a 44 year old female that presents to the ER for difficulty swallowing. Ongoing over the last couple of hours. Reports nausea, abdominal pain. Denies fevers, vomiting. GENERAL: Well-appearing, well-nourished, and in no acute distress. HEAD: Normocephalic, atraumatic. CHEST: Clear to auscultation. No respiratory distress. HEART: Regular rate and rhythm. NEURO: Alert and oriented x3. Patient screened in triage and initial orders placed. Additional care and disposition to be based upon diagnostic testing and treatment. <Ailyn Fernandez PA-C - Last Filed: 01/03/25 17:58> Focused HPI: This is a 44 year old female that presents to the ER for difficulty swallowing. Ongoing over the last couple of hours. Reports nausea, abdominal pain. Denies fevers, vomiting. Patient reports that she did drink alcohol for approximately 7 days and did quit drinking approximately 3 days ago. Patient denies any prior history of alcohol withdrawal or alcohol withdrawal seizures. Patient reports prior to 1 week she was sober for 3 years. GENERAL: Well-appearing, well-nourished, and in no acute distress. HEAD: Normocephalic, atraumatic. CHEST: Clear to auscultation. No respiratory distress. HEART: Regular rate and rhythm. NEURO: Alert and oriented x3. Patient screened in triage and initial orders placed. Additional care and disposition to be based upon diagnostic testing and treatment. <Kelby Momin MD - Last Filed: 01/01/25 21:05> History of Present Illness HPI narrative: I agree with the above HPI <Kelby Momin MD - Last Filed: 01/01/25 21:05> Related Data Home medications: Home Medications Medication Instructions Recorded Confirmed Last Taken Type dextroamphetamine-amphetamine 30 30 mg PO TID 02/16/20 06/11/23 02/20/20 08:00 History mg tablet escitalopram oxalate 20 mg tablet 20 mg PO DAILY 06/11/23 06/11/23 Unknown History <Ailyn Fernandez PA-C - Last Filed: 01/03/25 17:58> Allergies/adverse reactions: Allergies Allergy/AdvReac Type Severity Reaction Status Date / Time Penicillins Allergy Intermediate Swelling Verified 01/01/25 14:50 adhesive tape Allergy Mild Rash Verified 01/01/25 14:50 ceftriaxone Allergy Mild Rash Verified 01/01/25 14:50 <Ailyn Fernandez PA-C - Last Filed: 01/03/25 17:58> Review of Systems 2 Review of Systems: All systems reviewed & are unremarkable except as noted in HPI and below <Kelby Momin MD - Last Filed: 01/01/25 21:05> PMFSH Past Medical History Medical History: Medical History Hypomagnesemia Alcoholism Histiocytosis Alcoholic fatty liver Hepatitis, alcoholic, acute Leukemia <Ailyn Fernandez PA-C - Last Filed: 01/03/25 17:58> Surgical History Surgical History: Surgical History H/O gastric bypass History of hysterectomy <Ailyn Fernandez PA-C - Last Filed: 01/03/25 17:58> Social History Social History: Social History Smoking status: Never smoker Alcohol intake: current Drinks per week: 10 Alcohol use details: 1 pint daily Substance use: never Gender identity (if verbalized by the patient): Female Sexual Orientation (if Verbalized by the Patient): Straight or Heterosexual Spiritual care concerns: No <EUGENE Causey Last Filed: 01/03/25 17:58> Exam 2 Narrative: APPEARANCE: Well appearing, no pain, no distress, well-nourished. HEAD: normocephalic, atraumatic. EYES: PERRLA/EOMI, conjunctivae clear. NOSE: Normal no drainage EARS:TMS clear with good light reflex. THROAT: Pharynx clear, no exudate. NECK: Supple. No adenopathy, no masses. RESPIRATORY: Airway patent, respirations nonlabored. Clear to auscultation bilaterally, no rales, rhonchi, wheezing. CARDIOVASCULAR: Regular rate and rhythm without murmurs rubs or gallops. ABDOMINAL: Soft, nontender, nondistended, normal bowel sounds MUSCULOSKELETAL: Moves all extremities. Strength/ROM intact, No edema, No calf tenderness. NEURO: Alert. Cranial nerves II through XII intact. Grossly intact SKIN: Warm, dry. Normal Color <Kelby Momin MD - Last Filed: 01/01/25 21:05> Course Vital Signs Vital signs: Vital Signs Temperature 98.2 F 01/01/25 14:59 Pulse Rate 130 H 01/01/25 14:59 Respiratory Rate 18 01/01/25 14:59 Blood Pressure 134/86 01/01/25 14:59 Pulse Oximetry 100 01/01/25 14:59 Temperature 98.1 F 01/01/25 21:12 Pulse Rate 125 H 01/01/25 21:12 Respiratory Rate 18 01/01/25 21:12 Blood Pressure 128/95 H 01/01/25 21:12 Pulse Oximetry 96 01/01/25 21:12 <Ailyn Fernandez PA-C - Last Filed: 01/03/25 17:58> Vital Signs Temperature 98.2 F 01/01/25 14:59 Pulse Rate 130 H 01/01/25 14:59 Respiratory Rate 18 01/01/25 14:59 Blood Pressure 134/86 01/01/25 14:59 Pulse Oximetry 100 01/01/25 14:59 Temperature 98.1 F 01/01/25 21:12 Pulse Rate 125 H 01/01/25 21:12 Respiratory Rate 18 01/01/25 21:12 Blood Pressure 128/95 H 01/01/25 21:12 Pulse Oximetry 96 01/01/25 21:12 <Kelby Momin MD - Last Filed: 01/01/25 21:05> Medical Decision Making MDM Narrative Medical decision making narrative: 44-year-old female presents emergency department for evaluation for intermittent difficulty swallowing. Patient is able to handle her secretions and liquids without difficulty. Patient does describe symptoms worsening after recent alcohol consumption. Patient is currently afebrile with no leukocytosis hemoglobin of 9.8, patient does have a history of anemia. Patient has no significant acute abnormalities on her CMP patient does have mildly elevated AST ALT and alk-phos but these are all similar to her previous baseline. Patient's lipase is mildly elevated at 376. UA was negative for infection. Patient did feel improved with treatment with IV famotidine, Protonix IV fluids and IV Zofran. Patient was encouraged to follow a clear liquid diet for the next few days. Patient was provided omeprazole and Zofran for home. Patient was encouraged of close follow-up with GI. All questions concerns were addressed patient was well-appearing at time of discharge. <Kelby Momin MD - Last Filed: 01/01/25 21:05> Differential Diagnosis Differential Diagnosis: Gastritis, alcoholic gastritis, esophagitis, GERD, pancreatitis, cholelithiasis <Kelby Momin MD - Last Filed: 01/01/25 21:05> Vital Signs Vital Signs: Vital Signs Temperature 98.2 F 01/01/25 14:59 Pulse Rate 130 H 01/01/25 14:59 Respiratory Rate 18 01/01/25 14:59 Blood Pressure 134/86 01/01/25 14:59 Pulse Oximetry 100 01/01/25 14:59 Temperature 98.1 F 01/01/25 21:12 Pulse Rate 125 H 01/01/25 21:12 Respiratory Rate 18 01/01/25 21:12 Blood Pressure 128/95 H 01/01/25 21:12 Pulse Oximetry 96 01/01/25 21:12 <Ailyn Fernandez PA-C - Last Filed: 01/03/25 17:58> Vital Signs Temperature 98.2 F 01/01/25 14:59 Pulse Rate 130 H 01/01/25 14:59 Respiratory Rate 18 01/01/25 14:59 Blood Pressure 134/86 01/01/25 14:59 Pulse Oximetry 100 01/01/25 14:59 Temperature 98.1 F 01/01/25 21:12 Pulse Rate 125 H 01/01/25 21:12 Respiratory Rate 18 01/01/25 21:12 Blood Pressure 128/95 H 01/01/25 21:12 Pulse Oximetry 96 01/01/25 21:12 <Kelby Momin MD - Last Filed: 01/01/25 21:05> Lab Data Lab results reviewed: Yes I reviewed the patient's lab results. <Kelby Momin MD - Last Filed: 01/01/25 21:05> Result diagrams: 01/01/25 15:47 01/01/25 15:47 <Ailyn Fernandez PA-C - Last Filed: 01/03/25 17:58> Labs: Lab Results 01/01/25 Range/Units 15:47 WBC 5.4 (4.5-10.0) K/mm3 RBC 4.28 (4.2-5.4) M/mm3 Hgb 9.8 L D (12.0-15.0) g/dL Hct 34.9 L (37.0-47.0) % MCV 81.5 (80-100) fl MCH 22.9 L (26-34) pg MCHC 28.1 L (32-36) g/dl RDW 18.0 H (11.5-14.5) % Plt Count 302 D (150-375) k/mm3 MPV 8.8 (7.4-10.4) fl Immature Gran % (Auto) 0.2 (0-0.5) % Neut % (Auto) 85.2 H (45.5-73.1) % Lymph % (Auto) 8.6 L (18.3-44.2) % [place] % (Auto) 5.4 (2.6-8.5) % Eos % (Auto) 0.2 (0-4.4) % Baso % (Auto) 0.4 (0.2-1.2) % Lymph # (Auto) 0.46 L (0.9-3.2) K/mm3 [place] # (Auto) 0.3 (0.1-0.6) K/mm3 Eos # (Auto) 0.0 (0-0.3) K/mm3 Baso # (Auto) 0.0 (0.0-0.1) K/mm3 Abs Immat Gran (auto) 0.01 (0.00-0.031) K/mm3 Absolute Neuts (auto) 4.6 (1.3-6.7) K/mm3 Absolute Nucleated RBC 0.000 (0.0-0.012) K/mm3 Band Neutrophils % 0 (0-6) % Nucleated RBC % 0.0 (0.0-0.2) % Platelet Estimate Adequate (Adequate) Hypochromasia 1+ Anisocytosis 2+ Schistocytes None seen Sodium 138 (137-145) mmol/L Potassium 3.5 (3.4-5.0) mmol/L Chloride 101 (98-107) mmol/L Carbon Dioxide 26 (22-30) mmol/L Anion Gap 11 (4-12) mmol/L BUN 7 (7-17) mg/dL Creatinine 0.67 L (0.7-1.0) mg/dL Estim Creat Clear Calc 84 ml/min Estimated GFR > 60 (59 - ) Glucose 134 H (65-110) mg/dL Calcium 9.0 (8.4-10.2) mg/dL Total Bilirubin 0.6 (0.2-1.3) mg/dL AST 187 H (14-36) U/L ALT 69 H (6-35) U/L Alkaline Phosphatase 128 H (38-126) U/L Total Protein 9.0 H (6.3-8.2) g/dL Albumin 4.7 (3.5-5.1) g/dL Lipase 376 H (23-300) U/L Urine Color Yellow (Yellow) Urine Appearance Clear (Clear) Urine pH 6.0 (5.0-9.0) Ur Specific [place] 1.024 (1.001-1.035) Urine Protein Trace (Negative) mg/dL Urine Glucose (UA) Negative (Negative) mg/dL Urine Ketones Trace H (Negative) mg/dL Ur Blood (Man) Negative (Negative) Urine Nitrate Negative (Negative) Urine Bilirubin Negative (Negative) Urine Urobilinogen 1.0 (<2.0) mg/dL Leukocyte Esterase Rfl Negative (Negative) VEL/UL Urine RBC 0-2 (0-2) /hpf Urine WBC 0-5 (0-3) /hpf Ur Squamous Epith Cells None seen (Few) /hpf Urine Bacteria 4+ H /hpf Urine Casts 3-5 POC Urine HCG, Qual Negative (Negative) <Ailyn Fernandez PA-C - Last Filed: 01/03/25 17:58> Lab Results 01/01/25 Range/Units 15:47 WBC 5.4 (4.5-10.0) K/mm3 RBC 4.28 (4.2-5.4) M/mm3 Hgb 9.8 L D (12.0-15.0) g/dL Hct 34.9 L (37.0-47.0) % MCV 81.5 (80-100) fl MCH 22.9 L (26-34) pg MCHC 28.1 L (32-36) g/dl RDW 18.0 H (11.5-14.5) % Plt Count 302 D (150-375) k/mm3 MPV 8.8 (7.4-10.4) fl Immature Gran % (Auto) 0.2 (0-0.5) % Neut % (Auto) 85.2 H (45.5-73.1) % Lymph % (Auto) 8.6 L (18.3-44.2) % [place] % (Auto) 5.4 (2.6-8.5) % Eos % (Auto) 0.2 (0-4.4) % Baso % (Auto) 0.4 (0.2-1.2) % Lymph # (Auto) 0.46 L (0.9-3.2) K/mm3 [place] # (Auto) 0.3 (0.1-0.6) K/mm3 Eos # (Auto) 0.0 (0-0.3) K/mm3 Baso # (Auto) 0.0 (0.0-0.1) K/mm3 Abs Immat Gran (auto) 0.01 (0.00-0.031) K/mm3 Absolute Neuts (auto) 4.6 (1.3-6.7) K/mm3 Absolute Nucleated RBC 0.000 (0.0-0.012) K/mm3 Band Neutrophils % 0 (0-6) % Nucleated RBC % 0.0 (0.0-0.2) % Platelet Estimate Adequate (Adequate) Hypochromasia 1+ Anisocytosis 2+ Schistocytes None seen Sodium 138 (137-145) mmol/L Potassium 3.5 (3.4-5.0) mmol/L Chloride 101 (98-107) mmol/L Carbon Dioxide 26 (22-30) mmol/L Anion Gap 11 (4-12) mmol/L BUN 7 (7-17) mg/dL Creatinine 0.67 L (0.7-1.0) mg/dL Estim Creat Clear Calc 84 ml/min Estimated GFR > 60 (59 - ) Glucose 134 H (65-110) mg/dL Calcium 9.0 (8.4-10.2) mg/dL Total Bilirubin 0.6 (0.2-1.3) mg/dL AST 187 H (14-36) U/L ALT 69 H (6-35) U/L Alkaline Phosphatase 128 H (38-126) U/L Total Protein 9.0 H (6.3-8.2) g/dL Albumin 4.7 (3.5-5.1) g/dL Lipase 376 H (23-300) U/L Urine Color Yellow (Yellow) Urine Appearance Clear (Clear) Urine pH 6.0 (5.0-9.0) Ur Specific [place] 1.024 (1.001-1.035) Urine Protein Trace (Negative) mg/dL Urine Glucose (UA) Negative (Negative) mg/dL Urine Ketones Trace H (Negative) mg/dL Ur Blood (Man) Negative (Negative) Urine Nitrate Negative (Negative) Urine Bilirubin Negative (Negative) Urine Urobilinogen 1.0 (<2.0) mg/dL Leukocyte Esterase Rfl Negative (Negative) VEL/UL Urine RBC 0-2 (0-2) /hpf Urine WBC 0-5 (0-3) /hpf Ur Squamous Epith Cells None seen (Few) /hpf Urine Bacteria 4+ H /hpf Urine Casts 3-5 POC Urine HCG, Qual Negative (Negative) <Kelby Momin MD - Last Filed: 01/01/25 21:05> Critical Care Time Critical Care Time Critical Care Time: No <Ailyn Fernandez PA-C - Last Filed: 01/03/25 17:58> Discharge Plan Discharge Clinical Impression: Esophagitis Alcoholic gastritis Qualifiers: Chronicity: acute Gastritis bleeding: without bleeding Qualified Code(s): K 29.20 - Alcoholic gastritis without bleeding <EUGENE Causey Last Filed: 01/03/25 17:58> Patient Disposition: Home <EUGENE Causey Last Filed: 01/03/25 17:58> Condition: Stable <EUGENE Causey Last Filed: 01/03/25 17:58> Instructions: Antibiotic Form, Clear Liquid Diet (ED), Diet for Stomach Ulcers and Gastritis (ED) <Ailyn Fernandez PA-C - Last Filed: 01/03/25 17:58> Additional Instructions: Continue to refrain from alcohol consumption. Omeprazole as directed for the next 14 days. Zofran as needed for nausea control. Clear liquid diet for the next 3-5 days. Have close follow-up with GI. If you have any worsening symptoms then please call or return to the emergency department. <Ailyn Fernandez PA-C - Last Filed: 01/03/25 17:58> Patient Language: Tunisian <Ailyn Fernandez PA-C - Last Filed: 01/03/25 17:58> Prescriptions: New omeprazole 20 mg capsule,delayed release(DR/EC) 20 mg PO DAILY 14 Days Qty: 14 0RF ondansetron 4 mg tablet,disintegrating 4 mg PO Q8H PRN (Reason: nausea and vomiting) Qty: 14 0RF No Action escitalopram oxalate 20 mg tablet 20 mg PO DAILY clindamycin HCl 300 mg capsule 300 mg PO QID 10 Days Qty: 40 0RF lidocaine HCl [Lidocaine Viscous] 2 % solution 1 applic mucous membrane Q4-6H PRN (Reason: pain) Qty: 100 0RF Rx Instructions: apply sparingly to painful tooth/gums ketorolac 10 mg tablet 10 mg PO Q8H PRN (Reason: pain) 5 Days Qty: 20 0RF Rx Instructions: maximum total duration of 5 days from all oral, intranasal, or parenteral formulations methocarbamol 750 mg tablet 750 mg PO TID PRN (Reason: pain) Qty: 20 0RF oxycodone 5 mg tablet 5 mg PO Q8H PRN (Reason: pain) Qty: 10 0RF acetaminophen [Tylenol Extra Strength] 500 mg tablet 1,000 mg PO TID PRN (Reason: pain) Qty: 30 0RF doxycycline hyclate 100 mg capsule 100 mg PO BID 7 Days Qty: 14 0RF dextroamphetamine-amphetamine 30 mg tablet 30 mg PO TID doxycycline hyclate 100 mg capsule 100 mg PO BID 7 Days Qty: 14 0RF metronidazole 500 mg tablet 500 mg PO Q8H 7 Days Qty: 21 0RF <Ailyn Fernandez PA-C - Last Filed: 01/03/25 17:58> Follow-up/Referrals: Dariel Dumas MD [Physician] - UNKNOWN,DOCTOR [Non-Staff] - <Ailyn Fernandez PA-C - Last Filed: 01/03/25 17:58>
--- NOTE | 2025-01-01 15:19 | ECG_ITS ---
Test Date: 2025-01-01 15:50:48 Measurements Intervals [place] Rate: 122 P: 69 MD: 161 QRS: 68 QRSD: 94 T: 0 QT: 325 QTc: 464 Interpretive Statements SINUS TACHYCARDIA NONSPECIFIC ST & T-WAVE ABNORMALITY ABNORMAL RHYTHM ECG No previous ECG available for comparison Electronically Signed On 01-02-2025 13:24:20 CDT by Marlo Richardson M.D.
[2025-01-01 15:50] LABS: BEDSIDEPREGUCG Negative (Negative)
[2025-01-01 15:58] LABS: Basophils Percent Auto 0.4 % (0.2-1.2); Eosinophils Percent Auto 0.2 % (0-4.4); Hematocrit 34.9 % (37.0-47.0); Hemoglobin 9.8 g/dL (12.0-15.0); Immature Granulocyte Absolute 0.01 K/mm3 (0.00-0.031); Immature Granulocyte Percent A 0.2 % (0-0.5); Lymphocytes Absolute Auto 0.46 K/mm3 (0.9-3.2); Lymphocytes Percent Auto 8.6 % (18.3-44.2); Mean Corpuscular HGB Conc 28.1 g/dl (32-36); Mean Corpuscular Hemoglobin 22.9 pg (26-34); Mean Corpuscular Volume 81.5 fl (80-100); Mean Platelet Volume 8.8 fl (7.4-10.4); Monocytes Absolute Auto 0.3 K/mm3 (0.1-0.6); Monocytes Percent Auto 5.4 % (2.6-8.5); Neutrophils Absolute Auto 4.6 K/mm3 (1.3-6.7); Neutrophils Percent Auto 85.2 % (45.5-73.1); Platelet Count Result 302 k/mm3 (150-375); Red Blood Count 4.28 M/mm3 (4.2-5.4); White Blood Count 5.4 K/mm3 (4.5-10.0)
[2025-01-01 16:08] LABS: Add Urine Microscopic? YES; Appearance Urine Clear (Clear); Bacteria Urine 4+ /hpf; Bilirubin Urine Negative (Negative); Blood Urine Negative (Negative); Color Urine Yellow (Yellow); Glucose Urine UA Negative (Negative); Ketones Urine Trace mg/dL (Negative); Leukocyte Esterase Ur Negative LEU/UL (Negative); Nitrate Urine Negative (Negative); Protein Urine Trace mg/dL (Negative); RBC Urine 0-2 /hpf (0-2); Specific Grav Ur 1.024 (1.001-1.035); Squamous Epithelial Cell Urine None Seen /hpf (Few); WBC Urine 0-5 /hpf (0-3)
[2025-01-01 16:12] LABS: Alanine Aminotransferase 69 U/L (6-35); Albumin Level 4.7 g/dL (3.5-5.1); Alkaline Phosphatase 128 U/L (38-126); Anion Gap 11 mmol/L (4-12); Aspartate Amino Transferase 187 U/L (14-36); Bilirubin,Total 0.6 mg/dL (0.2-1.3); Blood Urea Nitrogen 7 mg/dL (7-17); Carbon Dioxide 26 mmol/L (22-30); Chloride 101 mmol/L (98-107); Estimated CRCL calculation 84 ml/min; Estimated Glomerular Filt Rate > 60; Glucose 134 mg/dL (65-110); Lipase 376 U/L (23-300); Potassium 3.5 mmol/L (3.4-5.0); Sodium 138 mmol/L (137-145)
[2025-01-01 16:20] LABS: Hypochromasia 1+; Platelet Estimate Adequate (Adequate); Schistocytes None Seen
[2025-01-01 16:22] LABS: Anisocytosis 2+; Band Neutrophils Percent 0 % (0-6)
[2025-01-01] MEDS: FAMOTIDINE 20 MG/2 ML VIAL IV PUSH (18:05)
[2025-01-01] MEDS: ONDANSETRON INJ 4 MG/2 ML VIAL IV PUSH ×2 (18:06→21:01)
--- OUTSIDE RECORDS SUMMARY | 2025-01-01 18:36 | XMS_ITS | Encounter Summary ---
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
--- OUTSIDE RECORDS SUMMARY | 2025-01-01 18:36 | XMS_ITS | Clinical Summary ---
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
--- OUTSIDE RECORDS SUMMARY | 2025-01-01 18:36 | XMS_ITS | Clinical Summary ---
Author Organization [facility] Address [address] [place] [address] Care Team Providers Care Straight Ruling Machine Operator Name Role Phone Arthur Marsh DO Primary Care Provider Source Comments [facility],non-owned Affiliates and Associated Physician Practices is amultiple site organization consisting of ambulatory clinics and hospital sitesin [place], [place], [place] and [place]. This disclosure is being madepursuant to the Care Everywhere program and may not contain all information available regarding this patient. Last updated 18.[facility] Social History Tobacco Use Types Packs/Day Years [...] age to complete this topic Care Teams Straight Ruling Machine Operator Relationship Specialty Start Date End Date Arthur Marsh DO [address] [place] [id number] PCP - General 11/16/05
--- OUTSIDE RECORDS SUMMARY | 2025-01-01 18:37 | XMS_ITS | Clinical Summary ---
Author Organization [facility] Address [address] [place] [address] Care Team Providers Care Survey Worker Name Role Phone Chad Valencia MD Primary [...] Type Department Care Team Description 2024 Telephone [facility] Hand Surgery [address] [place] [phone] William Gold MD Advice Only 11/29/2024 10:55 AM CDT Ancillary Procedure [facility] Hand Surgery [address] [place] [phone] 11/29/2024 10:00 AM CDT Office Visit [facility] Hand Surgery [address] [place] [phone] William Gold MD Closed dislocation of phalanx of hand, subsequent encounter (Primary Dx); Ganglion cyst of volar aspect of left wrist; Acute pain of left wrist 11/22/2024 10:30 AM CDT Office Visit [facility] Hand Surgery [address] [place] [phone] William Gold MD Closed dislocation of phalanx of hand, subsequent encounter; Left hand pain 11/15/2024 10:30 AM CDT Office Visit [facility] Hand Surgery [address] [place] [phone] William Gold MD Closed dislocation of phalanx of hand, subsequent encounter (Primary Dx) 11/15/2024 9:15 AM CDT Ancillary Procedure [facility] Hand Surgery [address] [place] [phone] 11/08/2024 8:30 AM CDT Office Visit [facility] Hand Surgery [address] [place] [phone] William Gold MD Closed dislocation of phalanx of hand, subsequent encounter (Primary Dx); Left hand pain 10/30/2024 9:55 AM CDT Ancillary Procedure [facility] Hand Surgery [address] [place] [phone] 10/30/2024 9:00 AM CDT Office Visit [facility] Hand Surgery [address] [place] [phone] William Gold MD Closed dislocation of phalanx of hand, subsequent encounter (Primary Dx) 10/27/[address] [facility] Hand Surgery [address] [place] [phone] Terri Crowley, WALKER 10/20/2024 8:15 AM MARKING DEVICES ASSEMBLER Office Visit [facility] Hand Surgery [address] [place] [phone] William Gold MD Closed dislocation of phalanx of hand, subsequent encounter (Primary Dx) 10/19/2024 Telephone [facility] Hand Surgery [address] [place] [phone] William Gold MD 10/17/2024 11:00 AM MARKING DEVICES ASSEMBLER - 10/17/2024 12:00 PM MARKING DEVICES ASSEMBLER Surgery [facility] OR [address] [place] [address] William Gold MD LEFT LONG METACARPOPHALANGEAL OPEN REDUCTION WITH PINNING AND SOFT TISSUE TREATMENT INDICATED 10/17/2024 10:29 AM MARKING DEVICES ASSEMBLER Anesthesia Event [facility] OR [address] [place] [phone] Mohan Lua MD Boivin, James R., MD 10/17/2024 7:55 AM MARKING DEVICES ASSEMBLER - 10/19/2024 9:59 AM MARKING DEVICES ASSEMBLER Hospital Encounter [place] [address] Med [address] [place] [phone] William Gold MD Singh, Anjanya Devendra, MD Closed dislocation of phalanx of hand, subsequent encounter [S63.259D] (Primary Dx); Thrombocytopenia Discharge Disposition: Discharge to home or self care 10/12/2024 6:15 AM MARKING DEVICES ASSEMBLER - 10/12/2024 11:59 PM MARKING DEVICES ASSEMBLER Hospital Encounter [address] [address] Left hand pain Discharge Disposition: Discharge to home or self care 10/09/2024 10:15 AM MARKING DEVICES ASSEMBLER Office Visit [facility] Hand Surgery [address] [place] [address] [place] [phone] William Gold MD Pain of finger of left hand (Primary Dx); Closed dislocation of finger, subsequent encounter 10/05/2024 10:57 AM MARKING DEVICES ASSEMBLER - 10/05/2024 11:59 PM MARKING DEVICES ASSEMBLER Hospital Encounter [facility] MRI [address] [place] [phone] Left hand pain Discharge Disposition: Discharge to home or self care 10/04/2024 2:00 PM MARKING DEVICES ASSEMBLER Office Visit [facility] Hand Surgery [address] [place] [phone] William Gold MD Left wrist pain (Primary Dx); Left hand pain; Pain of finger of left hand; Closed dislocation of finger, initial encounter 10/04/2024 1:00 PM MARKING DEVICES ASSEMBLER Ancillary Procedure [facility] Hand Surgery [address] [place] [phone] from Last 3 Months Immunizations Immunization Administration [...] on file Legal Sex Female 4:17 AM MARKING DEVICES ASSEMBLER Gender Identity Not on file Sexual Orientation Not on file Obstetrics History Last Filed Vital Signs Vital Sign Reading Time Taken Comments Blood Pressure 133/107 10/19/2024 7:48 AM MARKING DEVICES ASSEMBLER Pulse 112 10/19/2024 8:00 AM MARKING DEVICES ASSEMBLER Temperature 36.8 C (98.2 F) 10/19/2024 7:48 AM MARKING DEVICES ASSEMBLER Respiratory Rate 18 10/19/2024 7:48 AM MARKING DEVICES ASSEMBLER Oxygen Saturation 98% 10/19/2024 7:48 AM MARKING DEVICES ASSEMBLER Inhaled Oxygen Concentration - - Weight 78.4 kg (172 lb 13.5 oz) 10/17/2024 8:11 PM MARKING DEVICES ASSEMBLER Height 165.1 cm (5' 5 ) 10/17/2024 8:11 PM MARKING DEVICES ASSEMBLER Body Mass Index 28.76 10/17/2024 8:11 PM MARKING DEVICES ASSEMBLER Plan of Treatment Health Maintenance Due Date [...] this topic Medical Devices Implanted Type Area Export Agent Device Identifier Shelf Expiration Date Model / Serial / Lot Bladder Sling Pelvis Breast Implants Bilateral: Breast [employer] K Wire Fix Trocar Point Smooth Sgl End Ss [id number] - [id number] Implanted:Qty: 1 on 10/17/2024 by William Gold MD at [facility] Left: Metacarpal [employer] [id number] NS / / [employer] Kiley .062in 9in Trocar Point One End Orthopedic Wire [id number] - [id number] Implanted:Qty: 1 on 10/17/2024 by William Gold MD at [facility] Left: Metacarpal [employer] [id number] NS / / Procedures Procedure Name Priority [...] encounter ORTHO CASTING/SPLINTING Routine 10/20/2024 6:17 AM MARKING DEVICES ASSEMBLER Closed dislocation of phalanx of hand, subsequent encounter US LIVER IP Routine 10/19/2024 7:52 AM MARKING DEVICES ASSEMBLER EGFR Routine 10/19/2024 7:26 AM MARKING DEVICES ASSEMBLER DIFFERENTIAL AUTO Routine 10/19/2024 7:2 6 AM MARKING DEVICES ASSEMBLER COMPREHENSIVE METABOLIC PANEL Routine 10/19/2024 7:26 AM MARKING DEVICES ASSEMBLER CBC WITH AUTO DIFFERENTIAL Routine 10/19/2024 7:26 AM MARKING DEVICES ASSEMBLER FIBRINOGEN Routine 10/19/2024 7:26 AM MARKING DEVICES ASSEMBLER HAPTOGLOBIN Routine 10/19/2024 7:26 AM MARKING DEVICES ASSEMBLER RETICULOCYTES Routine 10/19/2024 7:26 AM MARKING DEVICES ASSEMBLER COPPER, SERUM Routine 10/19/2024 7:26 AM MARKING DEVICES ASSEMBLER ZINC Routine 10/19/2024 7:26 AM MARKING DEVICES ASSEMBLER VITAMIN B1 Routine 10/19/2024 7:26 AM MARKING DEVICES ASSEMBLER VITAMIN E Routine 10/19/2024 7:26 AM MARKING DEVICES ASSEMBLER VITAMIN D 25 HYDROXY Routine 10/19/2024 7:26 AM MARKING DEVICES ASSEMBLER FOLATE Routine 10/19/2024 7:26 AM MARKING DEVICES ASSEMBLER EGFR Routine 10/18/2024 12:41 PM MARKING DEVICES ASSEMBLER COMPREHENSIVE METABOLIC PANEL Routine 10/18/2024 12:41 PM MARKING DEVICES ASSEMBLER VITAMIN B12 Routine 10/18/2024 12:41 PM MARKING DEVICES ASSEMBLER HEPATITIS PANEL, ACUTE Routine 10/18/2024 12:41 PM MARKING DEVICES ASSEMBLER HIV 1/2 ANTIBODY PLUS P24 ANTIGEN Routine 10/18/2024 12:41 PM MARKING DEVICES ASSEMBLER DIFFERENTIAL AUTO Routine 10/18/2024 11: 04 AM MARKING DEVICES ASSEMBLER APTT Routine 10/18/2024 11:04 AM MARKING DEVICES ASSEMBLER PROTIME-INR Routine 10/18/2024 11:04 AM MARKING DEVICES ASSEMBLER FERRITIN Routine 10/18/2024 11:04 AM MARKING DEVICES ASSEMBLER IRON PROFILE W/ IBC Routine 10/18/2024 1 1:04 AM MARKING DEVICES ASSEMBLER CBC WITH AUTO DIFFERENTIAL Routine 10/18/2024 11:04 AM MARKING DEVICES ASSEMBLER EGFR Routine 10/17/2024 8:24 PM MARKING DEVICES ASSEMBLER CBC WITHOUT DIFFERENTIAL Routine 10/17/2024 8:24 PM MARKING DEVICES ASSEMBLER BASIC METABOLIC PANEL Routine 10/17/2024 8:24 PM MARKING DEVICES ASSEMBLER POCT GLUCOSE DEVICE Routine 10/17/2024 5 :10 PM MARKING DEVICES ASSEMBLER FL FLUOROSCOPY < 1 HOUR IP Routine 10/17/2024 11:17 AM MARKING DEVICES ASSEMBLER VA AN PROCEDURE PLACEHOLDER Routine 10/17/2024 10:40 AM MARKING DEVICES ASSEMBLER VA AN ELECTIVE SUPRAGLOTTIC AIRWAY Routine 10/17/2024 10:40 AM MARKING DEVICES ASSEMBLER OPEN REDUCTION INTERNAL FIXATION - METACARPAL 10/17/2024 10:29 AM MARKING DEVICES ASSEMBLER Closed dislocation of phalanx of hand, subsequent encounter Case Notes LT LONG MCP OR/PINNING Special Needs K-WIRES CT HAND LEFT WO CONTRAST Schedule Routine, Read Routine (OP Routine) 10/12/2024 6:42 AM MARKING DEVICES ASSEMBLER Left hand pain MRI HAND LEFT WO CONTRAST Schedule Routine, Read Routine (OP Routine) 10/05/2024 12:08 PM MARKING DEVICES ASSEMBLER Left hand pain DIAGNOSTIC MAMMOGRAM BILATERAL W EDITH W IMPLANTS Schedule Routine, Read Routine (OP Routine) 10/20/2023 8:41 AM MARKING DEVICES ASSEMBLER Lump of axilla, right from Last 3 [...] and well aligned long finger metacarpophalangeal joint Willima Gold MD IMG XR PROCEDURES Final Result [...] * Ortho Casting/Splinting Documentation (10/20/2024 6:17 AM MARKING DEVICES ASSEMBLER) Narrative William Gold MD - 10/20/2024 6:17 AM MARKING DEVICES ASSEMBLER William Gold MD 10/23/2024 6:17 AM Ortho Casting/Splinting Documentation Date/Time: 10/20/2024 6:17 AM Performed by: William Godl MD Authorized by: William Gold MD Sensation: Normal [place]/Sutures Removed: No Cast Applied: No Location: Wrist Wrist: L wrist Splint type: Short arm splint Supplies: Fiberglass, cotton stocking/sleeve and cotton Padding Number of fiberglass rolls used: 1 Capillary Refill: Normal Patient tolerance of procedure: Tolerated well, no immediate complications STATIC William Gold MD IN CLINIC/BEDSIDE ORDERA CHRISTOPH Final Result * US Liver (10/19/2024 7:52 AM MARKING DEVICES ASSEMBLER) Anatomical Region Laterality Modality Abdomen N/A Ultrasound 10/19/2024 10:2 3 AM MARKING DEVICES ASSEMBLER Narrative 10/19/2024 10:24 AM MARKING DEVICES ASSEMBLER EXAM DESCRIPTION: US LIVER REASON FOR STUDY: [...] Lj Hill M.D. CH: ILDEFONSO Report ID: [id number] Reading Location: [id number] Procedure Note Lj Hill Jr., MD - [...] by Lj Hill M.D. CH: Report ID: [id number] Reading Location: [place] [address] us Debbie Sevilla MD IMG US PROCEDURES Antonette l Result * eGFR (10/19/2024 7:26 AM MARKING DEVICES ASSEMBLER) eGFR >90 >=60 mL/min/1. 73 m2 Comment: [...] reviewed 2021. Testing performed by: [facility], [address] [place] [address]., [address] Blood 10/19/2024 7:26 AM MARKING DEVICES ASSEMBLER 10/19/2024 8:23 AM MARKING DEVICES ASSEMBLER us Debbie Sevilla MD LAB BLOOD ORDERABLES F inal Result [facility] [address] [facility] Department [place] [address] * Differential, auto (10/19/2024 7:26 AM MARKING DEVICES ASSEMBLER) Neutrophil abs 2.1 1.5 - 6.5 K/cumm Comment:Testing performed by : [address] [address] Imm gran abs 0.0 0.0 - 0.1 K/cumm [facility] Comment:Testing performed by : [address] [address] Lymphocyte abs 1.0 0.8 - 3.3 K/cumm [facility] Comment:Testing performed by : [address] [address] Monocyte abs 0.3 0.2 - 0.8 K/cumm [facility] Comment:Testing performed by : [address] [address] Eosinophil abs 0.1 0.0 - 0.5 K/cumm [facility] Comment:Testing performed by : [address] [address] Basophil abs 0.0 0.0 - 0.1 K/cumm [facility] Comment:Testing performed by : [address] [address] Neutrophil pct 60.3 % [facility] Comment: Interpretive Data Percent cell count reference ranges are not reported, since discordance with absolute values may lead to misinterpretation of CBC data. Current Interpretive Data was last revised on 2017. Testing performed by: [address] [address] Imm gran pct 0.9 % [facility] Comment: Interpretive Data Percent cell count reference ranges are not reported, since discordance with absolute values may lead to misinterpretation of CBC data. Current Interpretive Data was last revised on 2017. Testing performed by: [address] [address] Lymphocyte pct 28.2 % [facility] Comment: Interpretive Data Percent cell count reference ranges are not reported, since discordance with absolute values may lead to misinterpretation of CBC data. Current Interpretive Data was last revised on 2017. Testing performed by: [address] [address] Monocyte pct 7.4 % [facility] Comment: Interpretive Data Percent cell count reference ranges are not reported, since discordance with absolute values may lead to misinterpretation of CBC data. Current Interpretive Data was last revised on 2017. Testing performed by: [address] [address] Eosinophil pct 2.6 % [facility] Comment: Interpretive Data Percent cell count reference ranges are not reported, since discordance with absolute values may lead to misinterpretation of CBC data. Current Interpretive Data was last revised on 2017. Testing performed by: [address] [address] Basophil pct 0.6 % [facility] Comment: Interpretive Data Percent cell count reference ranges are not reported, since discordance with absolute values may lead to misinterpretation of CBC data. Current Interpretive Data was last revised on 2017. Testing performed by: [address] [address] Blood 10/19/2024 7:26 AM MARKING DEVICES ASSEMBLER 10/19/2024 8:21 AM MARKING DEVICES ASSEMBLER us Debbie Sevilla MD LAB BLOOD ORDERABLES F inal Result [facility] [address] [facility] Department [place] [address] * (ABNORMAL) CBC with auto differential (10/19/2024 7:26 AM MARKING DEVICES ASSEMBLER) WBC 3.5(L) 3.8 - 9.9 K/cumm Comment:Testing performed by : [address] [address] Hgb 12.6 11.9 - 15.5 g/dL [facility] Comment:Testing performed by : [address] [address] Hct 38.6 35.6 - 45.5 % [facility] Comment:Testing performed by : [address] [address] Plt 97(L) 150 - 400 K/cumm [facility] Comment:Testing performed by : [address] [address] MPV 9.6 9.1 - 12.3 fL RANDEE JIMÉNEZ Comment:Testing performed by : [address], [address] RBC 4.32 3.90 - 5.20 M/cumm [facility] Comment:Testing performed by : [address], [address] MCV 89.4 81.3 - 96.4 fL [facility]E Comment:Testing performed by : [address], [address] MCH 29.2 27.1 - 33.3 pg [facility]AN[facility]E Comment:Testing performed by : [address], [address] MCHC 32.6 32.3 - 35.7 g/dL [facility] Comment:Testing performed by : [address], [address] RDW CV 16.0(H) 11.1 - 14.9 % [facility] Comment:Testing performed by : [address], [address] RDW SD 51.9(H) 35.7 - 48.1 fL [facility]E Comment:Testing performed by : [address], [address] NRBC abs 0.00 0.00 - 0.01 K/cumm [facility] Comment:Testing performed by : [address], [address] Blood 10/19/2024 7:26 AM MARKING DEVICES ASSEMBLER 10/19/2024 8:21 AM MARKING DEVICES ASSEMBLER us Debbie Sevilla MD LAB BLOOD ORDERABLES F inal Result [facility] [address] [facility] Department [place] [address] * Copper, serum (10/19/2024 7:26 AM MARKING DEVICES ASSEMBLER) Copper 93 77 - 206 mcg/dL [facility] Comment: ADDITIONAL INFORMATION This test was developed and its performance characteristics determined by [facility] in a manner consistent with CLIA requirements. This test has not been cleared or approved by the U.S. Food and Drug Administration. Test Performed by: [facility] [address] [place] [address] Retail Account Representative: Sae Garber Ph.D.; CLIA# [id number] Testing performed by: [facility], [address] [place] [address]., [address] Blood 10/19/2024 7:26 AM MARKING DEVICES ASSEMBLER 10/19/2024 8:23 AM MARKING DEVICES ASSEMBLER us Debbie Sevilla MD LAB BLOOD ORDERABLES F inal Result [facility] [address] [facility] Department of Laboratories [place], [place] [id number] [place] ref Lab * Zinc (10/19/2024 7:26 AM MARKING DEVICES ASSEMBLER) Perfo [id number]|2025-01-01 18:37:00|2025-01-01 18:36:00|XMS_ITS|BKG DAEMON|External Medical Summaries|[id number]|" Referral Summary Created on: January 01, 2025 Brittany Dill : 1980 Sex: Female Author Organization [facility] Address [address] [place] [address] Care Team Providers Care Survey Worker Name Role Phone Chad Valencia MD Primary Care Provider + Encounters Date Type Department Care Team Description 2024 Telephone [facility] Hand Surgery [address] [place] [phone] William Gold MD Advice Only 11/29/2024 10:55 AM CDT Ancillary Procedure [facility] Hand Surgery [address] [place] [phone] 11/29/2024 10:00 AM CDT Office Visit [facility] Hand Surgery [address] [place] [phone] William Gold MD Closed dislocation of phalanx of hand, subsequent encounter (Primary Dx); Ganglion cyst of volar aspect of left wrist; Acute pain of left wrist 11/22/2024 10:30 AM CDT Office Visit [facility] Hand Surgery [address] [place] [phone] William Gold MD Closed dislocation of phalanx of hand, subsequent encounter; Left hand pain 11/15/2024 9:15 AM CDT Ancillary Procedure [facility] Hand Surgery [address] [place] [phone] 11/15/2024 10:30 AM CDT Office Visit [facility] Hand Surgery [address] [place] [phone] William Gold MD Closed dislocation of phalanx of hand, subsequent encounter (Primary Dx) 11/08/2024 8:30 AM CDT Office Visit [facility] Hand Surgery [address] [place] [phone] William Gold MD Closed dislocation of phalanx of hand, subsequent encounter (Primary Dx); Left hand pain 10/30/2024 9:55 AM CDT Ancillary Procedure [facility] [address] [phone] 10/30/2024 9:00 AM CDT Office Visit [facility] Hand Surgery [address] [place] [address] [place] [phone] William Gold MD Closed dislocation of phalanx of hand, subsequent encounter (Primary Dx) 10/27/2024 Orders Only [facility] Hand Surgery [address] [place] [address] [address] [place] [phone] Terri Crowley, WALKER 10/20/2024 8:15 AM MARKING DEVICES ASSEMBLER Office Visit [facility] Hand Surgery [address] [place] [address] [address] [place] [phone] William Gold MD Closed dislocation of phalanx of hand, subsequent encounter (Primary Dx) 10/19/2024 Telephone [facility] Hand Surgery [address] [place] [address] [address] [place] [phone] William Gold MD 10/17/2024 7:55 AM MARKING DEVICES ASSEMBLER - 10/19/2024 9:59 AM MARKING DEVICES ASSEMBLER Hospital Encounter [place] [address] [address] [place] [phone] William Gold MD Singh, Anjanya Devendra, MD Closed dislocation of phalanx of hand, subsequent encounter [S63.259D] (Primary Dx); Thrombocytopenia Discharge Disposition: Discharge to home or self care 10/17/2024 11:00 AM MARKING DEVICES ASSEMBLER - 10/17/2024 12:00 PM MARKING DEVICES ASSEMBLER Surgery [facility] OR [address] [place] [phone] William Gold MD LEFT LONG METACARPOPHALANGEAL OPEN REDUCTION WITH PINNING AND SOFT TISSUE TREATMENT INDICATED 10/17/2024 10:29 AM MARKING DEVICES ASSEMBLER Anesthesia Event [facility] OR [address] [place] [phone] Mohan Lua MD Boivin, James R., MD 10/12/2024 6:15 AM MARKING DEVICES ASSEMBLER - 10/12/2024 11:59 PM MARKING DEVICES ASSEMBLER Hospital Encounter [facility] [address] [place] [address] Left hand pain Discharge Disposition: Discharge to home or self care 10/09/2024 10:15 AM MARKING DEVICES ASSEMBLER Office Visit [facility] Hand Surgery [address] [place] [phone] William Gold MD Pain of finger of left hand (Primary Dx); Closed dislocation of finger, subsequent encounter 10/05/2024 10:57 AM MARKING DEVICES ASSEMBLER - 10/05/2024 11:59 PM MARKING DEVICES ASSEMBLER Hospital Encounter [facility] MRI [address] [place] [address] Left hand pain Discharge Disposition: Discharge to home or self care 10/04/2024 1:00 PM MARKING DEVICES ASSEMBLER Ancillary Procedure [facility] Hand Surgery [address] [place] [phone] 10/04/2024 2:00 PM MARKING DEVICES ASSEMBLER Office Visit [facility] Hand Surgery [address] [place] [phone] William Gold MD Left wrist pain (Primary [...] on file Legal Sex Female 4:17 AM MARKING DEVICES ASSEMBLER Gender Identity Not on file Sexual Orientation Not on file Last Filed Vital Signs Vital Sign Reading Time Taken Comments Blood Pressure 133/107 10/19/2024 7:48 AM MARKING DEVICES ASSEMBLER Pulse 112 10/19/2024 8:00 AM MARKING DEVICES ASSEMBLER Temperature 36.8 C (98.2 F) 10/19/2024 7:48 AM MARKING DEVICES ASSEMBLER Respiratory Rate 18 10/19/2024 7:48 AM MARKING DEVICES ASSEMBLER Oxygen Saturation 98% 10/19/2024 7:48 AM MARKING DEVICES ASSEMBLER Inhaled Oxygen Concentration - - Weight 78.4 kg (172 lb 13.5 oz) 10/17/2024 8:11 PM MARKING DEVICES ASSEMBLER Height 165.1 cm (5' 5 ) 10/17/2024 8:11 PM MARKING DEVICES ASSEMBLER Body Mass Index 28.76 10/17/2024 8:11 PM MARKING DEVICES ASSEMBLER Plan of Treatment Not on file Medical Devices Implanted Type Area Export Agent Device Identifier Shelf Expiration Date Model / Serial / Lot Bladder Sling Pelvis Breast Implants Bilateral: Breast [employer] K Wire Fix Trocar Point Smooth Sgl End Ss [id number] - [id number] Implanted:Qty: 1 on 10/17/2024 by William Gold MD at [facility] Left: Metacarpal [employer] [id number] NS / / [employer] Kiley .062in 9in Trocar Point One End Orthopedic Wire [id number] - [id number] Implanted:Qty: 1 on 10/17/2024 by William Godl MD at [facility] Left: Metacarpal [employer] [id number] NS / / Procedures Procedure Name Priority [...] encounter ORTHO CASTING/SPLINTING Routine 10/20/2024 6:17 AM MARKING DEVICES ASSEMBLER Closed dislocation of phalanx of hand, subsequent encounter US LIVER IP Routine 10/19/2024 7:52 AM MARKING DEVICES ASSEMBLER EGFR Routine 10/19/2024 7:26 AM MARKING DEVICES ASSEMBLER DIFFERENTIAL AUTO Routine 10/19/2024 7:2 6 AM MARKING DEVICES ASSEMBLER COMPREHENSIVE METABOLIC PANEL Routine 10/19/2024 7:26 AM MARKING DEVICES ASSEMBLER CBC WITH AUTO DIFFERENTIAL Routine 10/19/2024 7:26 AM MARKING DEVICES ASSEMBLER FIBRINOGEN Routine 10/19/2024 7:26 AM MARKING DEVICES ASSEMBLER HAPTOGLOBIN Routine 10/19/2024 7:26 AM MARKING DEVICES ASSEMBLER RETICULOCYTES Routine 10/19/2024 7:26 AM MARKING DEVICES ASSEMBLER COPPER, SERUM Routine 10/19/2024 7:26 AM MARKING DEVICES ASSEMBLER ZINC Routine 10/19/2024 7:26 AM MARKING DEVICES ASSEMBLER VITAMIN B1 Routine 10/19/2024 7:26 AM MARKING DEVICES ASSEMBLER VITAMIN E Routine 10/19/2024 7:26 AM MARKING DEVICES ASSEMBLER VITAMIN D 25 HYDROXY Routine 10/19/2024 7:26 AM MARKING DEVICES ASSEMBLER FOLATE Routine 10/19/2024 7:26 AM MARKING DEVICES ASSEMBLER EGFR Routine 10/18/2024 12:41 PM MARKING [employer]ICES ASSEMBLER COMPREHENSIVE METABOLIC PANEL Routine 10/18/2024 12:41 PM MARKING [employer]ICES ASSEMBLER VITAMIN B12 Routine 10/18/2024 12:41 PM MARKING DEVICES ASSEMBLER HEPATITIS PANEL, ACUTE Routine 10/18/2024 12:41 PM MARKING [employer]ICES ASSEMBLER HIV 1/2 ANTIBODY PLUS P24 ANTIGEN Routine 10/18/2024 12:41 PM MARKING DEVICES ASSEMBLER DIFFERENTIAL AUTO Routine 10/18/2024 11: 04 AM MARKING DEVICES ASSEMBLER APTT Routine 10/18/2024 11:04 AM MARKING DEVICES ASSEMBLER PROTIME-INR Routine 10/18/2024 11:04 AM MARKING DEVICES ASSEMBLER FERRITIN Routine 10/18/2024 11:04 AM MARKING DEVICES ASSEMBLER IRON PROFILE W/ IBC Routine 10/18/2024 1 1:04 AM MARKING DEVICES ASSEMBLER CBC WITH AUTO DIFFERENTIAL Routine 10/18/2024 11:04 AM MARKING DEVICES ASSEMBLER EGFR Routine 10/17/2024 8:24 PM MARKING [employer]ICES ASSEMBLER CBC WITHOUT DIFFERENTIAL Routine 10/17/2024 8:24 PM MARKING DEVICES ASSEMBLER BASIC METABOLIC PANEL Routine 10/17/2024 8:24 PM MARKING DEVICES ASSEMBLER POCT GLUCOSE DEVICE Routine 10/17/2024 5 :10 PM MARKING [employer]ICES ASSEMBLER FL FLUOROSCOPY < 1 HOUR IP Routine 10/17/2024 11:17 AM MARKING DEVICES ASSEMBLER VA AN PROCEDURE PLACEHOLDER Routine 10/17/2024 10:40 AM MARKING DEVICES ASSEMBLER VA AN ELECTIVE SUPRAGLOTTIC AIRWAY Routine 10/17/2024 10:40 AM MARKING DEVICES ASSEMBLER OPEN REDUCTION INTERNAL FIXATION - METACARPAL 10/17/2024 10:29 AM MARKING DEVICES ASSEMBLER Closed dislocation of phalanx of hand, subsequent encounter Case Notes LT LONG MCP OR/PINNING Special Needs K-WIRES CT HAND LEFT WO CONTRAST Schedule Routine, Read Routine (OP Routine) 10/12/2024 6:42 AM MARKING [employer]ICES ASSEMBLER Left hand pain MRI HAND LEFT WO CONTRAST Schedule Routine, Read Routine (OP Routine) 10/05/2024 12:08 PM MARKING [employer]ICES ASSEMBLER Left hand pain DIAGNOSTIC MAMMOGRAM BILATERAL W EDITH W IMPLANTS Schedule Routine, Read Routine (OP Routine) 10/20/2023 8:41 AM MARKING DEVICES ASSEMBLER Lump of axilla, right from Last 3 [...] * Ortho Casting/Splinting Documentation (10/20/2024 6:17 AM MARKING DEVICES ASSEMBLER) Narrative William Gold MD - 10/20/2024 6:17 AM MARKING DEVICES ASSEMBLER William Gold MD 10/23/2024 6:17 AM Ortho Casting/Splinting Documentation Date/Time: 10/20/2024 6:17 AM Performed by: William Gold MD Authorized by: William Gold MD Sensation: Normal [place]/Sutures Removed: No Cast Applied: No Location: Wrist Wrist: L wrist Splint type: Short arm splint Supplies: Fiberglass, cotton stocking/sleeve and cotton Padding Number of fiberglass rolls used: 1 Capillary Refill: Normal Patient tolerance of procedure: Tolerated well, no immediate complications STATIC us William Gold MD IN CLINIC/BEDSIDE ORDERA BLES Final Result * US Liver (10/19/2024 7:52 AM MARKING DEVICES ASSEMBLER) Anatomical Region Laterality Modality Abdomen N/A Ultrasound 10/19/2024 10:2 3 AM MARKING DEVICES ASSEMBLER Narrative 10/19/2024 10:24 AM MARKING DEVICES ASSEMBLER EXAM DESCRIPTION: US LIVER REASON FOR STUDY: [...] Lj Hill M.D. CH: ILDEFONSO Report ID: [id number] Reading Location: [id number] Procedure Note Lj Hill Jr., MD - [...] by Lj Hill M.D. CH: Report ID: [id number] Reading Location: [place] [address] us Debbie Sevilla MD IMG US PROCEDURES Antonette l Result * eGFR (10/19/2024 7:26 AM MARKING DEVICES ASSEMBLER) eGFR >90 >=60 mL/min/1. 73 m2 Comment: [...] reviewed 2021. Testing performed by: [facility], [address] [place] [address], [place]., [address] Blood 10/19/2024 7:26 AM MARKING DEVICES ASSEMBLER 10/19/2024 8:23 AM MARKING DEVICES ASSEMBLER us Debbie Sevilla MD LAB BLOOD ORDERABLES F inal Result RANDEE [address] Department [place] [address] * Differential, auto (10/19/2024 7:26 AM MARKING DEVICES ASSEMBLER) Neutrophil abs 2.1 1.5 - 6.5 K/cumm Comment:Testing performed by : [address] [address] Imm gran abs 0.0 0.0 - 0.1 K/cumm RANDEE Comment:Testing performed by : [address] [address] Lymphocyte abs 1.0 0.8 - 3.3 K/cumm RANDEE Comment:Testing performed by : [address] [address] Monocyte abs 0.3 0.2 - 0.8 K/cumm RANDEE Comment:Testing performed by : [address] [address] Eosinophil abs 0.1 0.0 - 0.5 K/cumm RANDEE Comment:Testing performed by : [address] [address] Basophil abs 0.0 0.0 - 0.1 K/cumm RANDEE Comment:Testing performed by : [address] [address] Neutrophil pct 60.3 % RANDEE Comment: Interpretive Data Percent cell count reference ranges are not reported, since discordance with absolute values may lead to misinterpretation of CBC data. Current Interpretive Data was last revised on 2017. Testing performed by: [address] [address] Imm gran pct 0.9 % RANDEE Comment: Interpretive Data Percent cell count reference ranges are not reported, since discordance with absolute values may lead to misinterpretation of CBC data. Current Interpretive Data was last revised on 2017. Testing performed by: [address] [address] Lymphocyte pct 28.2 % RANDEE Comment: Interpretive Data Percent cell count reference ranges are not reported, since discordance with absolute values may lead to misinterpretation of CBC data. Current Interpretive Data was last revised on 2017. Testing performed by: [address] [address] Monocyte pct 7.4 % RANDEE Comment: Interpretive Data Percent cell count reference ranges are not reported, since discordance with absolute values may lead to misinterpretation of CBC data. Current Interpretive Data was last revised on 2017. Testing performed by: [address] [address] Eosinophil pct 2.6 % RANDEE Comment: Interpretive Data Percent cell count reference ranges are not reported, since discordance with absolute values may lead to misinterpretation of CBC data. Current Interpretive Data was last revised on 2017. Testing performed by: [address] [address] Basophil pct 0.6 % RANDEE Comment: Interpretive Data Percent cell count reference ranges are not reported, since discordance with absolute values may lead to misinterpretation of CBC data. Current Interpretive Data was last revised on 2017. Testing performed by: [address] [address] Blood 10/19/2024 7:26 AM MARKING DEVICES ASSEMBLER 10/19/2024 8:21 AM MARKING DEVICES ASSEMBLER us Debbie Sevilla MD LAB BLOOD ORDERABLES F inal Result [facility] [address] [facility] Department of Laboratories [place], [place] [id number] * (ABNORMAL) CBC with auto differential (10/19/2024 7:26 AM MARKING DEVICES ASSEMBLER) WBC 3.5(L) 3.8 - 9.9 K/cumm Comment:Testing performed by : [address] [address] Hgb 12.6 11.9 - 15.5 g/dL RANDEE JIMÉNEZ Comment:Testing performed by : [address] [address] Hct 38.6 35.6 - 45.5 % RANDEE Comment:Testing performed by : [address] [address] Plt 97(L) 150 - 400 K/cumm RANDEE JIMÉNEZ Comment:Testing performed by : [address] [address] MPV 9.6 9.1 - 12.3 fL RANDEE JIMÉNEZ Comment:Testing performed by : [address] [address] RBC 4.32 3.90 - 5.20 M/cumm RANDEE JIMÉNEZ Comment:Testing performed by : [address] [address] MCV 89.4 81.3 - 96.4 fL RANDEE JIMÉNEZ Comment:Testing performed by : [address] [address] MCH 29.2 27.1 - 33.3 pg RANDEE JIMÉNEZ Comment:Testing performed by : [address] [address] MCHC 32.6 32.3 - 35.7 g/dL RANDEE Comment:Testing performed by : [address] [address] RDW CV 16.0(H) 11.1 - 14.9 % RANDEE Comment:Testing performed by : [address] [address] RDW SD 51.9(H) 35.7 - 48.1 fL RANDEE Comment:Testing performed by : [address] [address] NRBC abs 0.00 0.00 - 0.01 K/cumm RANDEE Comment:Testing performed by : [address] [address] Blood 10/19/2024 7:26 AM MARKING DEVICES ASSEMBLER 10/19/2024 8:21 AM MARKING DEVICES ASSEMBLER us Debbie Sevilla MD LAB BLOOD ORDERABLES F inal Result [facility] [address] [facility] Department [place] [address] * Copper, serum (10/19/2024 7:26 AM MARKING DEVICES ASSEMBLER) Copper 93 77 - 206 mcg/dL [facility] Comment: ADDITIONAL INFORMATION This test was developed and its performance characteristics determined by [facility] in a manner consistent with CLIA requirements. This test has not been cleared or approved by the U.S. Food and Drug Administration. Test Performed by: [facility] [place] [address] Retail Account Representative: Sae Garber Ph.D.; CLIA# [id number] Testing performed by: [address], [address] Blood 10/19/2024 7:26 AM MARKING DEVICES ASSEMBLER 10/19/2024 8:23 AM MARKING DEVICES ASSEMBLER us Debbie Sevilla MD LAB BLOOD ORDERABLES F inal Result [facility] [address] [facility] Department [place] [address] [facility] * Zinc (10/19/2024 7:26 AM MARKING DEVICES ASSEMBLER) Zinc 68 60 - 106 mcg/dL [facility] Comment: ADDITIONAL INFORMATION This test was developed and its performance characteristics determined by [facility] in a manner consistent with CLIA requirements. This test has not been cleared or approved by the U.S. Food and Drug Administration. Test Performed by: [facility] [place] [id number] Retail Account Representative: Sae Garber Ph.D.; CLIA# [id number] Testing performed by: [address] [address] Blood 10/19/2024 7:26 AM MARKING DEVICES ASSEMBLER 10/19/2024 8:23 AM MARKING DEVICES ASSEMBLER Debbie Sevilla MD LAB BLOOD ORDERABLES F inal Result RAN[facility]E [address] [place] [address] [facility] * Vitamin D 25 hydroxy (10/19/2024 7:26 AM MARKING DEVICES ASSEMBLER) [facility] Vitamin D 25-OH 70.0 30.0 - 80.0 ng/mL Blood 10/19/2024 7:26 AM MARKING DEVICES ASSEMBLER 10/19/2024 10:24 AM MARKING DEVICES ASSEMBLER Debbie Sevilla MD LAB BLOOD ORDERABLES F inal Result Performing Organization Address [facility] Co de Phone Number YANI[address] [place] [address] * Fibrinogen (10/19/2024 7:26 AM MARKING DEVICES ASSEMBLER) [facility] Fibrinogen 344 170 - 400 mg/dL Comment:Testing perf
[2025-01-01] MEDS: BELLADONNA ALK/PHENOB ELIX 10 ML, MAG HYDROX/ALUMINUM HYD/SIMETH 30 ML, LIDOCAINE 2% VI... PO (18:48)
[2025-01-01] MEDS: PANTOPRAZOLE SODIUM IV 40 MG VIAL IV PUSH (18:49)
[2025-01-01] MEDS: LORazepam INJ (*CRX) 2 MG/ML VIAL 1 MG IV PUSH (18:53)
[2025-01-01] MEDS: LACTATED RINGERS 500 ML 999 ML IV CONT (18:53)
--- NOTE | 2025-01-01 20:59 | PC.NURSE ---
vrbo 1 more dose of zofran 4mg prior to discharge per edp
== END 2025-01-01 21:14 | disposition home or self-care (01) ==
PROVIDERS: Physician Assistant; Emergency Provider Emergency Medicine
DX: K29.20 Alcoholic gastritis without bleeding (principal); K20.90 Esophagitis, unspecified without bleeding; Z85.6 Personal history of leukemia
CPT/HCPCS: 36415; 80053; 81001; 81025; 83690; 85025; 93005; 96361; 96374; 96375; 96376; 99284; A9270; J2060; J2405; J2470; J7120

== ENCOUNTER 2025-05-09 16:32 | Emergency (ER) | payer OTHER, SELFPAY ==
[2025-05-09 16:40] VITALS: BP 127/74; PULSE 84; RESP 14; TEMP 36.1; O2SAT 99
--- NOTE | 2025-05-09 17:09 | ED.SKABFB ---
HPI - Skin/Abscess/Foreign Bdy General Chief complaint: Skin/Abscess/Foreign Body Stated complaint: bite on right thigh Time Seen by Provider: 05/09/25 17:00 Source: patient and RN notes reviewed Mode of arrival: ambulatory Limitations: no limitations History of Present Illness HPI narrative: 44-year-old female presents Express Care complaining of possible abscess to her right lower thigh. Patient reports he noticed that 7 days ago, she is unsure what happened however she believes she was bit by a spider. Since then the patient reports worsening redness, swelling and pain to the area. Patient denies any drainage, fevers come back eczema chills nausea vomiting, or any other symptoms. Patient denies any significant past medical history. Patient denies any history of MRSA. Related Data Home Medications ?Medication ?Instructions ?Recorded ?Confirmed ?Last Taken ?Type dextroamphetamine-amphetamine 30 30 mg PO TID 02/16/20 05/09/25 02/20/20 08:00 History mg tablet escitalopram oxalate 20 mg tablet 20 mg PO DAILY 06/11/23 05/09/25 Unknown History Allergies Allergy/AdvReac Type Severity Reaction Status Date / Time Penicillins Allergy Intermediate Swelling Verified 05/09/25 16:34 adhesive tape Allergy Mild Rash Verified 05/09/25 16:34 ceftriaxone Allergy Mild Rash Verified 05/09/25 16:34 Review of Systems Review of Systems: CONSTITUTIONAL: Denies fever, chills, or sweats. EYES: Denies visual changes, redness, or discharge. ENT: Denies rhinorrhea, congestion, sore throat, or otalgia. CARDIOVASCULAR: Denies chest pain, palpitations, or edema. RESPIRATORY: Denies cough or dyspnea. GASTROINTESTINAL: Denies abdominal pain, nausea, vomiting, or diarrhea. GENITOURINARY: Denies dysuria or hematuria. SKIN: Denies rash or itching. Positive for wound. MUSCULOSKELETAL: Denies back pain, joint pain, or myalgia. NEUROLOGIC: Denies headache, numbness, or weakness. PSYCHIATRIC: Denies anxiety or depression. All other systems reviewed are negative, except as documented in HPI. [facility] Past Medical History Medical History Hypomagnesemia Alcoholism Histiocytosis Alcoholic fatty liver Hepatitis, alcoholic, acute Leukemia Surgical History Surgical History H/O gastric bypass History of hysterectomy Social History Social History Smoking status: Never smoker Alcohol intake: current Drinks per week: 10 Alcohol use details: 1 pint daily Substance use: never Gender identity (if verbalized by the patient): Female Sexual Orientation (if Verbalized by the Patient): Straight or Heterosexual Spiritual care concerns: No Comments At the time of my signature, I reviewed and agree with the nursing past medical, surgical, social, and family history. There is no relevant family history pertinent to the patient complaint. Exam Narrative: GENERAL: This is a well-nourished, well-developed adult, in no apparent distress. They are non ill-appearing, nontoxic appearing. HEAD: normocephalic, atraumatic. EYES: Sclera clear/white. Conjunctiva normal. Vision is grossly intact. Extraocular movements intact EARS: External ears normal, Hearing grossly intact. NOSE: External nose normal THROAT: Mucous membranes moist, NECK: Neck supple, CARDIOVASCULAR: Regular rate and rhythm RESPIRATORY: Respiratory rate normal, respiratory effort nonlabored, no respiratory distress SKIN: Right thigh: Papule that is erythematous to the right lower medial thigh. No area of fluctuance, skin is indurated. It is hot to touch. No exudate. Measuring approximately 2 cm x 2 cm. NEURO: awake, alert, and oriented to person, place and time. There were no obvious focal neurologic abnormalities. EXTREMITIES: No joint tenderness, effusion, or edema noted. Course Course Emergency Course: Portions of this record may have been created with voice recognition software Level of Care: Express Care Visit Vital Signs Vital signs: Vital Signs Temperature 96.9 F L 05/09/25 16:40 Pulse Rate 84 05/09/25 16:40 Respiratory Rate 14 05/09/25 16:40 Blood Pressure 127/74 05/09/25 16:40 Pulse Oximetry 99 05/09/25 16:40 Temperature 96.9 F L 05/09/25 16:40 Pulse Rate 84 05/09/25 16:40 Respiratory Rate 14 05/09/25 16:40 Blood Pressure 127/74 05/09/25 16:40 Pulse Oximetry 99 05/09/25 16:40 Reviewed MDM - Skin/Abscess/Foreign Bdy MDM Narrative Medical decision making narrative: Patient likely has a small abscess forming to her right medial lower thigh. No obvious fluctuance felt, no exudate present. Is less than 2 cm and size. Through shared decision making with patient will go ahead and proceed with conservative management and prescribed a course of clindamycin with return precautions discussed. Strict ER precautions discussed with patient if she develops worsening redness, swelling, pain, fevers, aches, chills, or any serious concerns. Discussed physical exam findings. Advised supportive measures and signs/symptoms to go to the ER. Pt is appropriate for outpt treatment and f/u. Differential Diagnosis Differential diagnosis: Likely abscess of skin or subcutaneous tissue, cellulitis and insect bites Critical Care Time Critical Care Time Critical Care Time: No Discharge Plan Discharge Clinical Impression: Abscess of skin or subcutaneous tissue Qualifiers: Site of cutaneous abscess: extremity Site of cutaneous abscess of extremity: lower extremity Laterality: right Qualified Code(s): L02.415 - Cutaneous abscess of right lower limb Patient Disposition: Home Condition: Stable Instructions: Antibiotic Form, Abscess (ED) Additional Instructions: Take clindamycin as directed. Finish the course completely. DO NOT pick at the area. This will only make the area worse and drive infection deeper. Shower and wash with soapy water. Keep area clean and dry. May apply form compresses 10-15 minutes at a time a few times a day to promote drainage. If it is draining please cover with a non adherent dressing such as a Band-Aid. Follow up with PCP in 3-5 days If you developed worsening redness, swelling, pain, green/yellow drainage, fevers, body aches, chills, or any serious concerns please go to the ER immediately. Patient Language: Serbian Prescriptions: New clindamycin HCl [Cleocin HCl] 150 mg capsule 450 mg PO Q8H 7 Days Qty: 63 0RF No Action escitalopram oxalate 20 mg tablet 20 mg PO DAILY dextroamphetamine-amphetamine 30 mg tablet 30 mg PO TID Follow-up/Referrals: Erik,Chad Min MD [Primary Care Provider, Unknown] Time of Disposition: 17:13
== END 2025-05-09 17:27 | disposition home or self-care (01) ==
PROVIDERS: PCP Obstetrics & Gynecology
DX: L02.415 Cutaneous abscess of right lower limb (principal); K70.0 Alcoholic fatty liver; Z85.6 Personal history of leukemia; Z98.84 Bariatric surgery status
CPT/HCPCS: 99213; G0463